=== PATIENT | female | born 1955 | race African-American/Black ===

== ENCOUNTER 2017-08-05 11:13 | Emergency (ER) | payer MEDICARE, MEDICAID ==
[2017-08-05 11:56] LABS: #Lymphocytes 1.6 thou/uL (1.20-3.40); #Monocytes 0.4 thou/uL (0.11-0.59); #Neutrophils 2.4 thou/uL (1.40-6.50); %Basophils 0.4 % (0.0-1.0); %Eosinophils 0.5 % (0.0-10.0); %Lymphocytes 36.4 % (21.0-51.0); %Monocytes 9.8 % (0.0-10.0); %Neutrophils 52.9 % (42.0-75.0); Hemoglobin 14.1 g/dL (12.0-16.0); Mean Corpuscular HGB CONC 32.6 g/dL (32.0-36.0); Mean Corpuscular Hemoglobin 30.2 pg (27.0-31.0); Mean Corpuscular Volume 92.7 fl (81.0-99.0); Mean Platelet Volume 7.6 fL (7.4-10.4); Platelet Count 183 thou/uL (130-400); RBC Distribution Width 13.1 % (11.5-14.5); Red Blood Cell (RBC) Count 4.66 mill/uL (4.20-5.40); White Blood Cell (WBC) Count 4.5 thou/uL (4.8-10.8)
[2017-08-05 12:20] LABS: ALT (SGPT) 64 U/L (8-55); AST (SGOT) 76 U/L (5-34); Albumin 3.8 g/dL (3.4-4.8); Alkaline Phosphatase 143 U/L (40-150); Anion Gap 13 mmol/L (10-20); BUN (Urea Nitrogen) 17 mg/dL (9.8-20.1); Bilirubin, Total 0.4 mg/dL (0.2-1.2); Calc. Creatinine Clearance 0 mL/min (70-130); Calcium 9.7 mg/dL (7.8-10.44); Carbon Dioxide 23 mmol/L (23-31); Chloride 104 mmol/L (98-107); Estimated GFR-MDRD 68; Globulin 4.2 g/dL (2.4-3.5); Glucose 282 mg/dL (80-115); Potassium 4.2 mmol/L (3.5-5.1); Sodium 136 mmol/L (136-145)
[2017-08-05 12:25] LABS: CKMB 0.8 ng/mL (0-6.6)
[2017-08-05 12:41] LABS: Bilirubin Negative (Negative); Blood, Urine Negative (Negative); Clarity CLOUDY (Clear); Glucose, Urine (Dipstick) Negative (Negative); Leukocyte Negative (Negative); Nitrite Negative (Negative); Protein, Urine (Dipstick) 100 mg/dL (Neg-Trace); Specific Gravity, Urine 1.027 (1.002-1.036); pH, Urine 5.5 (5.0-9.0)
[2017-08-05 12:44] LABS: Bacteria/HPF 2+ HPF (None Seen); Pathc Cast-AUWi Flag 2.16 (0-2.49)
[2017-08-05 12:52] LABS: Hyaline Casts/LPF 4-6 HYALINE CAST LPF (0-3 Hyaline)
--- NOTE | 2017-08-05 13:19 | RAD ---
AP CHEST: Indication: Cough, body aches. FINDINGS: Bibasilar atelectasis and stable cardiomegaly when compared to a prior dated 10-17-16. No airspace con solidation, pleural effusion, or pneumothorax is evident. No acute osseous abnormality is evident. IMPRESSION: Stable cardiomegaly. Bibasilar atelectasis. POS: [facility]
--- NOTE | 2017-08-06 12:19 | EKG ---
Test Reason : Blood Pressure : / mmHG Vent. Rate : 078 BPM Atrial Rate : 078 BPM P-R Int : 130 ms QRS Dur : 082 ms QT Int : 364 ms P-R-T Axes : 006 -04 046 degrees QTc Int : 414 ms Normal sinus rhythm Moderate voltage criteria for LVH, may be normal variant Borderline ECG Confirmed by TEJA BECERRA ([id number]), graphic editor NIC CORCORAN ([id number]) on 08/06/2017 12:18:55 PM Referred By: Confirmed By:TEJA BECERRA
== END 2017-08-05 13:13 | disposition home or self-care (01) ==
LOC: ERS 11:13
DX: B34.9 Viral infection, unspecified (principal); I25.10 Atherosclerotic heart disease of native coronary artery without angina pectoris; I11.0 Hypertensive heart disease with heart failure; I50.9 Heart failure, unspecified; E11.9 Type 2 diabetes mellitus without complications; E78.5 Hyperlipidemia, unspecified; F32.9 Major depressive disorder, single episode, unspecified; Z79.899 Other long term (current) drug therapy; Z86.73 Personal history of transient ischemic attack (TIA), and cerebral infarction without residual deficits; Z79.4 Long term (current) use of insulin; Z79.82 Long term (current) use of aspirin
CPT/HCPCS: 36415; 71010; 80053; 81003; 81015; 82553; 83605; 84484; 85025; 93005

== ENCOUNTER 2017-08-11 06:52 | Outpatient (CLI) | payer MEDICARE, MEDICAID | END 2017-08-11 06:53 | disposition home or self-care (01) | LOC: BICULT 06:52 | PROVIDERS: ATTEND Internal Medicine Gastroenterology | DX: R10.9 Unspecified abdominal pain (principal); Z90.49 Acquired absence of other specified parts of digestive tract | CPT/HCPCS: 76700 ==

== ENCOUNTER 2017-09-03 12:21 | Observation (INO) | payer MEDICARE, MEDICAID ==
--- NOTE | 2017-09-03 13:34 | RAD ---
CHEST 1 VIEW: Date: 09/03/17 HISTORY: Altered mental status, hypoxia. COMPARISON: Chest 1 view dated 08/05/17. FINDINGS: Lungs are clear. No pneumothorax or effusion. Cardiac silhouette and mediastinal contour within em l limits. Right upper quadrant surgical clips. IMPRESSION: No acute intrathoracic abnormality. POS: [facility]
--- NOTE | 2017-09-03 13:38 | CT ---
CT OF THE HEAD WITHOUT CONTRAST: INDICATION: History of altered mental status. COMPARISON: Prior CT of the brain dated 04/05/16. FINDINGS: Moderate chronic small-vessel white matter ischemic change is stable. The remote lacunar infarcts in volving the right caudate head and both globus pallidi appear stable. The remote lacunar infarct inv olving the anterior right thalamus is stable. There are scattered vascular calcifications involving the intracranial vessels. Septum pellucidum and third ventricle are midline. No definite acute infa rct, hemorrhage, or hydrocephalus is present. The mastoid air cells are clear. Paranasal sinuses ar e clear. The skull is intact. IMPRESSION: Stable chronic ischemic change. No definite acute intracranial abnormality demonstrated. POS: [facility]
[2017-09-03 13:45] LABS: #Basophils 0.1 thou/uL (0.0-0.2); #Lymphocytes 1.7 thou/uL (1.20-3.40); #Monocytes 0.5 thou/uL (0.11-0.59); #Neutrophils 1.8 thou/uL (1.40-6.50); %Basophils 1.7 % (0.0-1.0); %Eosinophils 0.6 % (0.0-10.0); %Lymphocytes 41.8 % (21.0-51.0); %Monocytes 11.8 % (0.0-10.0); %Neutrophils 44.1 % (42.0-75.0); ALT (SGPT) 35 U/L (8-55); AST (SGOT) 39 U/L (5-34); Albumin 3.7 g/dL (3.4-4.8); Alkaline Phosphatase 132 U/L (40-150); Anion Gap 14 mmol/L (10-20); BUN (Urea Nitrogen) 22 mg/dL (9.8-20.1); Bilirubin, Total 0.3 mg/dL (0.2-1.2); CK (CPK) 163 U/L (29-168); Calc. Creatinine Clearance 0 mL/min (70-130); Calcium 9.7 mg/dL (7.8-10.44); Carbon Dioxide 20 mmol/L (23-31); Chloride 101 mmol/L (98-107); Estimated GFR-MDRD 51; Globulin 4.2 g/dL (2.4-3.5); Glucose 348 mg/dL (80-115); Hemoglobin 11.5 g/dL (12.0-16.0); Mean Corpuscular HGB CONC 33.3 g/dL (32.0-36.0); Mean Corpuscular Hemoglobin 30.5 pg (27.0-31.0); Mean Corpuscular Volume 91.6 fl (81.0-99.0); Mean Platelet Volume 8.4 fL (7.4-10.4); PLT Morphology Comment Appears Adequate; Platelet Count 135 thou/uL (130-400); Polychromasia SLIGHT = 2-3 cells (100X) (0-2/hpf); Potassium 4.7 mmol/L (3.5-5.1); Protein, Total 7.9 g/dL (6.0-8.3); RBC Distribution Width 13.2 % (11.5-14.5); Red Blood Cell (RBC) Count 3.78 mill/uL (4.20-5.40); Sodium 130 mmol/L (136-145); White Blood Cell (WBC) Count 4.3 thou/uL (4.8-10.8)
[2017-09-03 13:48] LABS: CKMB 1.5 ng/mL (0-6.6); Troponin I 0.014 ng/mL (< 0.028)
[2017-09-03 13:50] LABS: Bilirubin Negative (Negative); Blood, Urine Negative (Negative); Clarity CLOUDY (Clear); Glucose, Urine (Dipstick) 250 mg/dL (Negative); Leukocyte Negative (Negative); Nitrite Negative (Negative); Protein, Urine (Dipstick) 30 mg/dL (Neg-Trace); Specific Gravity, Urine 1.023 (1.002-1.036); Urobilinogen 0.2 mg/dL (0.2-1.0); pH, Urine 5.5 (5.0-9.0)
[2017-09-03 13:52] LABS: Bacteria/HPF None Seen HPF (None Seen); Hyaline Casts/LPF 4-6 HYALINE CAST LPF (0-3 Hyaline); Pathc Cast-AUWi Flag 0.54 (0-2.49); RBC/HPF 0-3 HPF (0-3); WBC/HPF 0-3 HPF (0-3)
[2017-09-03] MEDS ORDERED: ISOVUE-370 76%-LOCM 1 ML ONE (14:16)
[2017-09-03] MEDS ORDERED: Iopamidol 370 76% 50 ML VIAL FS ONE (14:16)
[2017-09-03] MEDS ORDERED: Ketorolac Tromethamine 30 MG/ML VIAL ONE (15:24)
[2017-09-03] MEDS ORDERED: Ondansetron ODT 4 MG TAB PO PRN (18:10)
[2017-09-03] MEDS ORDERED: Dextrose 5% in Water 1,000 ML IV PRN (18:10)
[2017-09-03] MEDS ORDERED: Dextrose 50% Abboject 50 ML SYRINGE SLOW IVP PRN (18:10)
[2017-09-03] MEDS: Sodium Chloride 0.9% 1,000 ML IV SCH (18:27)
--- NOTE | 2017-09-03 18:27 | HP-2 ---
CODE STATUS: FULL. PRIMARY CARE PHYSICIAN: Dr. Rivas, [facility]. ATTENDING: Tavia Adorno M.D. RESIDENT: Delmar Gallardo MD CHIEF COMPLAINT: Syncope and weakness. HISTORY OF PRESENT ILLNESS: This is a 62-year-old female who presents with a 1-week history of feeli ng weak and feeling bad. She states this morning she felt even worse. She got up to use the restroo m, felt the urge to use the restroom and then yelled for her son because she felt weak. When her son came into the bathroom, she was fecally incontinent and on the floor. She states she briefly lost c onsciousness but did not hurt herself. Again, this patient knew that she needed to go the bathroom b ut just did not make it in time. She states she had chest pains for roughly 2 days prior to this, bu t nothing severe enough to come into the hospital. She denies any nausea, vomiting, diarrhea, fevers , chills, or any other longstanding incontinence. She does have a history of longstanding abdominal pain that she states is on her hip, but then she describes it in her waistline at this time as well. She has no other complaints at this time. In the ER, she was given a normal saline bolus of 1 liter . She got 50 mg shot of Toradol. PAST MEDICAL HISTORY: Significant for diabetes mellitus type 2, hyperlipidemia, hypertension, CVA in 1999, hepatitis C, CHF, and depression. PAST SURGICAL HISTORY: Left and right knee replacements, cholecystectomy, hysterectomy, tonsillectom y, and a back surgery. ALLERGIES: Include VICTOZA and ACTOS. MEDICATIONS: Include, 1. Gabapentin 600 mg t.i.d. 2. Lansoprazole 30 mg daily. 3. Atorvastatin 80 mg at bedtime. 4. Insulin ultrafine needles. 5. Bupropion 200 mg orally once a daily. 6. Nitrostat 0.4 mg sublingual. 7. Colace 100 mg take 1 by mouth twice daily as needed. 8. Lisinopril 20 mg b.i.d. 9. Aspirin 81 mg. 10. Glimepiride 1 mg. 11. Carvedilol 25 mg p.o. daily. 12. Oxybutynin ER 10 mg daily. 13. Spironolactone/HCTZ 25/25 mg daily. 14. [place] 10/325 mg q.4 hour p.r.n. 15. Metoclopramide 10 mg, take 30 minutes prior to 2 largest meals. 16. Naproxen 500mg. 17. Bentyl 20 mg q.i.d. 18. NovoLog 6 units before meals. FAMILY HISTORY: Significant for heart disease. SOCIAL HISTORY: Denies tobacco use. She does say she socially drinks alcohol at times and she denie s drug use. REVIEW OF SYSTEMS: GENERAL: No fevers, no chills, no weight losses, no night sweats, no fatigue. EYES: No vision changes or eye pain. ENT: Denies any nasal congestion, rhinorrhea, or sore throat. RESPIRATORY: Denies coughing, congestion, or shortness of breath. CARDIOVASCULAR: She does admit to chest pains. Denies palpitations, edema, or orthopnea. GASTROINTESTINAL: Denies nausea, vomiting, diarrhea or constipation. She does admit to abdominal pa in. Denies GI bleeding. GENITOURINARY: Has an episode of incontinence. Denies dysuria, polyuria, or discharge. SKIN: She does admit to rashes especially around her waist. Denies any skin lesions, jaundice, or i tching. MUSCULOSKELETAL: Denies pain, tenderness, stiffness, swelling, arthritis at any joints. NEUROLOGIC: Admits to weakness and syncope. Denies any numbness or seizures. PSYCHIATRIC: Denies anxiety or depression. PHYSICAL EXAMINATION: VITAL SIGNS: Blood pressure was 183/65, pulse was 86, respiration is 19, temperature max 97.8, pulse ox 96% on room air, current weight is 95 kilos. GENERAL: She is alert and oriented x4, appropriate, interactive. EYES: PERRLA. Conjunctivae within normal limits. ENT: Tympanic membranes pearly gonzalez without bulging or erythema. Nasal mucosa and oropharynx within normal limits. NECK: Supple, no lymphadenopathy, no thyromegaly. CARDIAC: Regular rate and rhythm. No murmurs. Radial and pedal pulses equal bilaterally. RESPIRATORY: Normal effort. She did have some diminished lung sounds at the bases bilaterally. SKIN: Warm and dry. No cyanosis. No lesions. ABDOMEN: Soft and was tender to palpation along her waist. No mass or distention. Bowel sounds pre sent x4. EXTREMITIES: No clubbing, cyanosis or edema. MUSCULOSKELETAL: Structure, tone, and range of motion within normal limits. Muscle strength 3/5 maximus aterally. I am unsure of the effort given by the patient during this exam. NEUROLOGIC: No focal neurologic deficits. Sensation within normal limits. Cranial nerves II-XII ju st grossly intact. GCS was 15. PSYCHIATRY: Appropriate. LABORATORY DATA: White blood cell count 4.3, platelet count 135, hemoglobin 11.5, hematocrit 34.6, M CV 91.6%, neutrophils 44.1. CK 163, CK-MB 1.5, troponin I 0.014. Sodium 130, potassium 4.7, chlorid e 101, bicarbonate 20, BUN 22, creatinine 1.27, glucose 348, calcium 9.7, total protein 7.9, albumin 3.7, total bilirubin 0.3, AST was 39, ALT 35, alkaline phosphatase 132. Lactate was 1.4. CRP was 0. 6. BNP was 41.3. Her urinalysis showed a specific gravity of 1.23, negative for blood. She had 30 for protein, negative for leukocyte esterase, negative for nitrites, negative for ketones and 250 for glucose, 0-3 red blood cells, 0-3 white blood cells, no bacteria were seen. Chest x-ray showed noth ing acute. She had CT of her head that showed stable chronic ischemic change. An EKG showed normal sinus rhythm. There is also a CT abdomen and pelvis that will be pending at the time of this dictati on. ASSESSMENT AND PLAN: 1. A 62-year-old female with syncope and orthostatics. Repeat echo and carotid Dopplers pending. W e are going to put her tele admit and give her IV fluids. She also has blood and urine cultures pend ing at this time. 2. Acute kidney injury. We will give her IV fluids. We will track that going forward. 3. Hyperglycemia and diabetes mellitus type 2. We will give her Accu-Cheks. We are going to check an A1c and give her insulin as well as continue her home meds. 4. Hyponatremia, it is likely from hypovolemia. We will trend that and we will do appropriate inter ventions as needed. 5. Hyperlipidemia. We will continue statin. 6. Hypertension. We will continue her home meds. 7. Depression. We will continue her home meds. Disposition and length of hospital stay will be tele observation and 1. Symptomatic medications will be provided. History and physical exam as well as management has been discussed with Dr. Tavia galvan
--- NOTE | 2017-09-03 18:31 | CT ---
CT ABDOMEN AND PELVIS WITH CONTRAST 09/03/17 HISTORY: Abdominal pain. COMPARISON: CT abdomen and pelvis 04/02/17. FINDINGS: Lung bases are clear. No pericardial effusion. Prior cholecystectomy. There is a small fat containing ventral hernia which is supraumbilical with some low grade inflammation and prominent draining vesse l. There is moderate diverticular disease sigmoid colon. No definite evidence of active inflammatory dis ease. Dilated loops of large and small bowel. There is mild to moderate submucosal edema of the transverse colon. Mild thickening of the terminal ileum. The appendix is visualized and is normal. No hydroureteronephrosis. Aortoiliac contour is normal. There is ossification between the transverse processes of L3-S1. Right sided SI joint fusion. No acut e osseous abnormality. Appears to be suture material at the rectum. IMPRESSION: Chronic type findings in the abdomen and pelvis. No definite acute process. No significant change fro 04/02/17 aside from mild thickening of the transverse colon which may reflect low grade colitis. POS: [facility]
[2017-09-03 18:45] VITALS: BMI 36.2
[2017-09-03 18:57] LABS: Hemoglobin A1c 12.9 % (4.0-6.0)
[2017-09-03] MEDS: Acetaminophen 325 MG TAB PO PRN (20:11)
[2017-09-03] MEDS: HumaLOG 300 UNITS/3 ML VIAL SC PRN (22:33)
--- NOTE | 2017-09-04 00:08 | HP ---
DATE OF SERVICE: 09/03/2017 CHIEF COMPLAINT: Syncope and weakness. HISTORY OF PRESENT ILLNESS: The patient is a 62-year-old -[place] female with a past medical history of poorly controlled type 2 diabetes, hyperlipidemia, hypertension and CHF, depression, and hepatitis C, who presented to the ER with a 1-week history of weakness and feeling bad. She got up t o use the restroom this morning and began to feel weak and called out for a family member. When the family member got to the restroom, she had passed out and had been incontinent. She also noted some chest pains few days prior to coming to the ER, but denies chest pain currently. She also endorses s ome lower abdominal pain that she noted was more along her right groin and had a rash, skin folds to her right groin. In the ER, she was found to be dehydrated and with an acute kidney injury. She has received 1 liter bolus of normal saline and also got Toradol. LABORATORY DATA: Pertinent labs include white count of 4.3, hemoglobin of 11.5, hematocrit 34.6, princess telet count 135. Her CMP showed sodium of 130, potassium 4.7, chloride 101, bicarbonate 20, BUN 22, creatinine 1.27, glucose 348, total bilirubin 0.3, AST 39, ALT 35, alkaline phosphatase 132, total pr otein 7.9, albumin 3.7. The patient's hemoglobin A1c is 12.9, and lactic acid was 1.4. Her CRP is 0 .6. Her cardiac enzymes were negative. Urinalysis was significant for protein of 30, glucose 250, s quamous cells 7-10 and hyaline casts 4-6. IMAGING DATA: The patient had a CT of her brain, which showed stable chronic ischemic changes and a chest x-ray that showed no acute abnormalities. The patient is being admitted for syncope. We will monitor orthostatics and we will check an echo and carotid Dopplers. She is to remain on telemetry m onitoring and she will continue to receive IV fluids. She has cultures pending at this time. ASSESSMENT AND PLAN: Acute kidney injury. She is getting IV fluids and we will trend her creatinine. Regarding her uncon trolled diabetes, she will have sliding scale insulin and continued counseling for diabetic diet. Th e patient has had a CT abdomen and pelvis to better examine her abdominal pain, but those results are pending at this time. I have discussed the history, physical, assessment and the plan in detail wit zelda Gallardo and agree with his documentation. I repeated portions of the history and physical by m justinelf.
[2017-09-04] MEDS ORDERED: Metoclopramide HCl 10 MG TAB PO PRN (00:37)
[2017-09-04] MEDS: Sodium Chloride 0.9% 1,000 ML IV SCH ×4 (01:54→23:46)
[2017-09-04 05:51] LABS: Anion Gap 9 mmol/L (10-20); BUN (Urea Nitrogen) 23 mg/dL (9.8-20.1); Calc. Creatinine Clearance 87 mL/min (70-130); Calcium 8.9 mg/dL (7.8-10.44); Carbon Dioxide 25 mmol/L (23-31); Chloride 105 mmol/L (98-107); Estimated GFR-MDRD 65; Glucose 326 mg/dL (80-115); Potassium 4.4 mmol/L (3.5-5.1); Sodium 135 mmol/L (136-145)
[2017-09-04] MEDS: HumaLOG 300 UNITS/3 ML VIAL SC PRN (06:11)
[2017-09-04] MEDS: Acetaminophen 325 MG TAB PO PRN ×3 (06:13→23:32)
--- NOTE | 2017-09-04 06:20 | PDOC.FM ---
- Subjective Subjective: Patient states she had a good night. She states that she has not had any further fainting episodes, but hasn't gotten up out of bed often. She states she does still feel weak all over. Her biggest complaint this morning is her waist line pain. She has an appointment for [facility] in the near future and I encouraged her to keep that appointment. She denies chest pain, sob, n/v/d, fevers, or chills. No other concerns this morning. - Objective Vital Signs & Weight: Vital Signs (12 hours) Temp Pulse Resp BP Pulse Ox 09/04/17 01:56 98.0 F 77 16 141/80 H 97 09/03/17 23:01 98.3 F 88 18 134/96 H 94 L 09/03/17 20:13 98.5 F 83 20 Weight Weight 99.972 kg Result Diagrams: 09/04/17 04:37 09/04/17 04:37 <Delmar Gallardo - Last Filed: 09/04/17 07:36> - Objective Vital Signs & Weight: Vital Signs (12 hours) Temp Pulse Resp BP BP BP Pulse Ox 09/04/17 11:23 97.8 F 72 24 H 145/77 H 97 09/04/17 08:09 97.3 F L 83 16 185/98 H 190/100 H 174/87 H 95 09/04/17 08:00 97.3 F L 83 16 09/04/17 01:56 98.0 F 77 16 141/80 H 97 Weight Weight 99.972 kg I&O: 09/03/17 09/04/17 09/05/17 06:59 06:59 06:59 Intake Total 2421 Balance 2421 Result Diagrams: 09/04/17 04:37 09/04/17 04:37 <Terrie Brown - Last Filed: 09/04/17 13:47> Phys Exam - Physical Examination HEENT: PERRLA Neck: no nodes Respiratory: no wheezing, clear to auscultation bilateral Cardiovascular: RRR, no significant murmur Gastrointestinal: soft, no distention, positive bowel sounds tenderness to suprapubic region along waist Musculoskeletal: no edema, pulses present Neurological: non-focal, normal sensation, moves all 4 limbs Lymphatic: no nodes Psychiatric: normal affect, A&O x 3 Skin: no rash <Delmar Gallardo - Last Filed: 09/04/17 07:36> Dx/Plan (1) Syncope Code(s): R55 - SYNCOPE AND COLLAPSE Status: Acute (2) BURAK (acute kidney injury) Code(s): N17.9 - ACUTE KIDNEY FAILURE, UNSPECIFIED Status: Acute (3) Hyperglycemia due to type 2 diabetes mellitus Code(s): E11.65 - TYPE 2 DIABETES MELLITUS WITH HYPERGLYCEMIA Status: Acute (4) Hyponatremia Code(s): E87.1 - HYPO-OSMOLALITY AND HYPONATREMIA Status: Acute (5) Depression Code(s): F32.9 - MAJOR DEPRESSIVE DISORDER, SINGLE EPISODE, UNSPECIFIED Status : Chronic (6) Hypertension Code(s): I10 - ESSENTIAL (PRIMARY) HYPERTENSION Status: Chronic (7) Abdominal pain Code(s): R10.9 - UNSPECIFIED ABDOMINAL PAIN Status: Acute - Plan Plan: 1. Syncope - No further episodes - BP responded well - ECHO pending - Carotid dopplers pending 2. BURAK - Improved today Cr 1.03 - Continue IVF 3. Hyperglycemia in DM2 - not well controlled - Will increase insulin usage 4. Hyponatremia - improved this am to 135 - likely hypovolemic 5. Depression - Continue home meds 6. HTN - Continue home meds 7. Abdominal pain - CT scan showed no acute findings, possibly some colitis of transverse colon - No rebound or guarding - Recommend keeping [facility] appointment for outpatient follow up. Disposition: Stable, will await echo results. <Delmar Gallardo - Last Filed: 09/04/17 07:36> Attending Addendum - Attending Addendum I personally evaluated the patient and discussed the management with Dr. Gallardo. I agree with the History, Examination, Assessment and Plan documented above with any addition or exceptions noted below. The patient is feeling much better today. Carotid doppler and echo are pending. She will f/u as an outpt with [facility] to further workup groin/ abdominal pain. Abdominal exam is soft, nontender, nondistended with bowel sounds. <Terrie Brown - Last Filed: 09/04/17 13:47>
[2017-09-04 06:35] LABS: Band 1 % (5-11); Hemoglobin 12.1 g/dL (12.0-16.0); Lymphocytes 53 % (21-51); MDiff Complete? YES; Mean Corpuscular HGB CONC 32.3 g/dL (32.0-36.0); Mean Platelet Volume 7.5 fL (7.4-10.4); Monocytes 7 % (0-10); Neutrophil 39 % (42-75); PLT Morphology Comment Appears Adequate; Platelet Count 181 thou/uL (130-400); RBC Distribution Width 13.3 % (11.5-14.5); RBC Morphology Normal; Red Blood Cell (RBC) Count 4.01 mill/uL (4.20-5.40); White Blood Cell (WBC) Count 3.1 thou/uL (4.8-10.8)
[2017-09-04] MEDS: HumaLOG 300 UNITS/3 ML VIAL SC SCH ×3 (08:40→18:10)
[2017-09-04] MEDS: Enoxaparin Sodium 40 MG/0.4 ML SYRINGE SC SCH (08:41)
[2017-09-04] MEDS: Oxybutynin ER 5 MG TAB PO SCH (08:42)
[2017-09-04] MEDS: Gabapentin 300 MG CAP PO SCH ×3 (08:42→20:14)
--- NOTE | 2017-09-04 08:42 | ULT ---
ULTRASOUND CAROTID DOPPLER STANDARD: Date: 09/04/17 HISTORY: Syncope. COMPARISON: Exam from 2013. FINDINGS: Moderate atherosclerotic plaque proximal internal carotid arteries bilaterally. Antegrade flow to bot h vertebral arteries. No elevated peak systolic velocities within the internal carotid arteries. IMPRESSION: No hemodynamically significant stenosis. POS: [facility]
[2017-09-04] MEDS: Lisinopril 20 MG TAB PO SCH ×2 (08:43→20:13)
[2017-09-04] MEDS: Aspirin 81 mg Enteric Coated Tablet PO SCH (08:43)
[2017-09-04] MEDS: Bupropion 100 MG SR TAB PO SCH (08:43)
[2017-09-04] MEDS: Glimepiride 4 MG TAB PO SCH (08:43)
[2017-09-04] MEDS: Docusate 100 MG CAP PO SCH ×2 (08:43→20:13)
[2017-09-04] MEDS: Dicyclomine 20 MG TAB PO SCH ×4 (08:44→20:13)
[2017-09-04] MEDS: Carvedilol 25 MG TAB PO SCH ×2 (08:44→20:13)
[2017-09-04] MEDS: Spironolactone/Hctz 25 MG/25 MG TABLET PO SCH (08:45)
[2017-09-04] MEDS ORDERED: FLU VACC QS2017-18 36 mo. & older 0.5 ML SYRINGE IM ONE (09:00)
[2017-09-04] MEDS ORDERED: Insulin Degludec [Tresiba Flextouch U-100] SC SCH (09:00)
[2017-09-04] MEDS ORDERED: Insulin Detemir 100 UNITS/ML 10 UNITS in Pre-Filled Syringe 1 EACH SC SCH ×2 (09:30→21:00)
[2017-09-04] MEDS: Insulin Detemir 100 UNITS/ML 55 UNITS in Pre-Filled Syringe 1 EACH SC SCH (20:12)
[2017-09-04] MEDS ORDERED: Atorvastatin Calcium 40 MG TAB PO SCH (21:00)
[2017-09-04] MEDS: hydrALAZINE 20 MG/ML VIAL SLOW IVP PRN (23:39)
--- NOTE | 2017-09-05 06:22 | PDOC.FM ---
- Subjective Subjective: Patient states she feels tired. She states that she gets sharp, shock like chest pains that occur for like 10 seconds. The last pains she had were last night and they resolved on her own. She states the biggest pain she has is in her waist line and in her vagina. She denies n/v/d, fevers, chills, or cough. She has no other complaints this morning. - Objective Vital Signs & Weight: Vital Signs (12 hours) Temp Pulse Resp BP BP Pulse Ox 09/05/17 03:48 98.9 F 89 16 188/95 H 96 09/04/17 23:39 73 18 185/94 H 98 09/04/17 23:32 98.3 F 71 16 09/04/17 20:13 185/89 H 09/04/17 19:10 98.3 F 71 16 185/89 H 96 Weight Weight 101.786 kg I&O: 09/03/17 09/04/17 09/05/17 06:59 06:59 06:59 Intake Total 2421 1300 Balance 2421 1300 Result Diagrams: 09/04/17 04:37 09/04/17 04:37 <Delmar Gallardo - Last Filed: 09/05/17 07:25> - Objective Vital Signs & Weight: Vital Signs (12 hours) Temp Pulse Resp BP Pulse Ox 09/05/17 12:00 97.6 F 88 18 140/98 H 95 09/05/17 08:00 98.3 F 88 18 09/05/17 07:59 98.3 F 88 18 165/93 H 95 09/05/17 06:29 89 09/05/17 03:48 98.9 F 89 16 188/95 H 96 Weight Weight 101.786 kg I&O: 09/04/17 09/05/17 09/06/17 06:59 06:59 06:59 Intake Total 2421 1300 Balance 2421 1300 Result Diagrams: 09/04/17 04:37 09/04/17 04:37 <Terrie Brown - Last Filed: 09/05/17 13:51> Phys Exam - Physical Examination Constitutional: NAD HEENT: PERRLA halitosis Neck: no nodes Respiratory: no wheezing, clear to auscultation bilateral Cardiovascular: RRR, no significant murmur Gastrointestinal: soft, non-tender, no distention, positive bowel sounds Musculoskeletal: no edema, pulses present Neurological: non-focal, normal sensation, moves all 4 limbs Lymphatic: no nodes Psychiatric: normal affect, A&O x 3 Skin: no rash <Delmar Gallardo - Last Filed: 09/05/17 07:25> Dx/Plan (1) Syncope Code(s): R55 - SYNCOPE AND COLLAPSE Status: Acute (2) BURAK (acute kidney injury) Code(s): N17.9 - ACUTE KIDNEY FAILURE, UNSPECIFIED Status: Acute (3) Hyperglycemia due to type 2 diabetes mellitus Code(s): E11.65 - TYPE 2 DIABETES MELLITUS WITH HYPERGLYCEMIA Status: Acute (4) Hyponatremia Code(s): E87.1 - HYPO-OSMOLALITY AND HYPONATREMIA Status: Acute (5) Depression Code(s): F32.9 - MAJOR DEPRESSIVE DISORDER, SINGLE EPISODE, UNSPECIFIED Status : Chronic (6) Hypertension Code(s): I10 - ESSENTIAL (PRIMARY) HYPERTENSION Status: Chronic (7) Abdominal pain Code(s): R10.9 - UNSPECIFIED ABDOMINAL PAIN Status: Acute - Plan Plan: 1. Syncope - No further episodes - BP responded well - ECHO: EF 50-55% mild LVH, mild mitral annular calcification, mild mitral regurgitation - Carotid dopplers: no significant stenosis - ruled out cardiac cause 2. BURAK - Resolved - Continue IVF 3. Hyperglycemia in DM2 - not well controlled - Will increase insulin usage - Glucose in 200s now 4. Hyponatremia - resolved - likely hypovolemic 5. Depression - Continue home meds 6. HTN - Continue home meds - Uncontrolled - PRN hydralazine - Will need to decrease BP before discharge. 7. Abdominal pain - CT scan showed no acute findings, possibly some colitis of transverse colon - No rebound or guarding - Recommend keeping [facility] appointment for outpatient follow up. Disposition: Stable, Patient will be ready for discharge today. <Delmar Gallardo - Last Filed: 09/05/17 07:25> Attending Addendum - Attending Addendum I personally evaluated the patient and discussed the management with Dr. Gallardo. I agree with the History, Examination, Assessment and Plan documented above with any addition or exceptions noted below. The patient is feeling better. No syncope since admission. Echo has been taken. pt is stable to d/c home with follow-up with PCP. Advised to also keep [facility] appt. <Terrie Brown - Last Filed: 09/05/17 13:51>
[2017-09-05] MEDS: hydrALAZINE 20 MG/ML VIAL SLOW IVP PRN (06:29)
[2017-09-05] MEDS: Acetaminophen 325 MG TAB PO PRN (06:29)
[2017-09-05] MEDS: Enoxaparin Sodium 40 MG/0.4 ML SYRINGE SC SCH (09:32)
[2017-09-05] MEDS: HumaLOG 300 UNITS/3 ML VIAL SC SCH ×2 (09:32→13:03)
[2017-09-05] MEDS: Dicyclomine 20 MG TAB PO SCH ×2 (09:33→13:03)
[2017-09-05] MEDS: Lisinopril 20 MG TAB PO SCH (09:33)
[2017-09-05] MEDS: Oxybutynin ER 5 MG TAB PO SCH (09:33)
[2017-09-05] MEDS: Gabapentin 300 MG CAP PO SCH (09:33)
[2017-09-05] MEDS: Aspirin 81 mg Enteric Coated Tablet PO SCH (09:34)
[2017-09-05] MEDS: Carvedilol 25 MG TAB PO SCH (09:34)
[2017-09-05] MEDS: Bupropion 100 MG SR TAB PO SCH (09:34)
[2017-09-05] MEDS: Docusate 100 MG CAP PO SCH (09:34)
[2017-09-05] MEDS: Glimepiride 4 MG TAB PO SCH (09:34)
[2017-09-05] MEDS: Spironolactone/Hctz 25 MG/25 MG TABLET PO SCH (09:43)
[2017-09-05] MEDS: Insulin Detemir 100 UNITS/ML 55 UNITS in Pre-Filled Syringe 1 EACH SC SCH (10:02)
[2017-09-05 12:04] VITALS: BP 140/98; TEMP 97.6
--- NOTE | 2017-09-06 14:11 | DIS-2 ---
DATE OF ADMISSION: 09/03/2017 DATE OF DISCHARGE: 09/05/2017 RESIDENT: Dr. Delmar Gallardo ADMITTING ATTENDING: Dr. Malick Mane DISCHARGE ATTENDING: Dr. Terrie Brown CONSULTATIONS: Walking program. PROCEDURES: The patient underwent a brain CT on 09/03/2017 that showed stable chronic ischemic changes, no definite acute intracranial abnormality demonstrated. Chest x-ray showed no acute intrathoracic abnormality. Abdomen and pelvis CT showed chronic type findings in the abdomen and pelvis, no definite acute process, no significant change from 04/02/2017, aside from mild thickening of the transverse colon which may reflect low-grade colitis. The patient underwent an echocardiogram on 09/03/2017 that showed ejection fraction is estimated at 50-55% with mild LVH, normal right ventricle size and function. Left atrium is of normal size, normal right atrium size, structurally normal mitral valve, but mild mitral annular calcification is present. Trace mitral regurgitation is present. Structurally normal aortic valve and trace tricuspid regurgitation. Patient also underwent a carotid Doppler study on 09/04/2017 that showed no hemodynamically significant stenosis. PRIMARY DIAGNOSES: 1. Syncope. 2. Acute kidney injury 3. Hyperglycemia due to diabetes mellitus type 2. 4. Hyponatremia. 5. Depression. 6. Hypertension. 7. Abdominal pain. DISCHARGE MEDICATIONS: 1. Atorvastatin 80 mg p.o. at bedtime. 2. Bupropion 200 mg p.o. daily. 3. Gabapentin 600 mg p.o. t.i.d. 4. Lansoprazole 30 mg p.o. daily. 5. Nitroglycerin 0.4 mg sublingual every 5 minutes. 6. Colace 100 mg p.o. b.i.d. 7. Carvedilol 25 mg p.o. daily. 8. Glimepiride 2 mg p.o. daily. 9. Lisinopril 20 mg p.o. b.i.d. 10. Aspirin 81 mg p.o. daily. 11. Aldactazide 25 mg/25 mg 1 tab p.o. daily. 12. Oxybutynin chloride 10 mg p.o. daily. 13. Reglan 10 mg p.o. b.i.d. 14. Metoprolol succinate 25 mg p.o. daily. 15. Traceba Flextouch 100, 110 units subcu daily. 16. NovoLog FlexPen 6 units subcu t.i.d. with meals. 17. Bentyl 20 mg p.o. q.i.d. 18. Acetaminophen 650 mg p.o. q.4 hour p.r.n. 19. Amlodipine 5 mg p.o. daily. HISTORY OF PRESENT ILLNESS AND HOSPITAL COURSE: This is a 62-year-old female who presents with 1 week history of feeling weak and feeling bad. She states this morning she felt even worse. She got up to use the restroom, felt the urge to use the restroom and then yelled for her son because she felt weak. When her son came into the bathroom she was focally incontinent and was on the floor. She states she briefly lost consciousness, but did not hurt herself. Again, this patient knew that she needed to go the bathroom, but did not make it in time. She states she had chest pains for roughly 2 days prior to this, but nothing severe enough to come into the hospital. She denies any nausea, vomiting, diarrhea, fever, chills or any other abdominal pain or any other longstanding incontinence. She does have a history of longstanding abdominal pain that she states is on her hip, but then she describes it in the waistline at this time as well. She has no other complaints at this time. In the ER, she was given a normal saline bolus of 1 liter. She got 50 mg shot of Toradol. During this hospitalization, the patient no longer had any syncopal episodes or any syncopal symptoms. The patient did have very hypertensive like blood pressures ranging from 188/95 down to 140/98 on the day of discharge. The patient also had some notable lab values of hemoglobin A1c of 12.9 with blood sugars ranging from 198 to as high as 329. The patient had a sodium on admission of 130 that improved to 135 the day before discharge. The patient also had a urinalysis that showed urine glucose of 250, urine protein of 30, urine squamous cells 7-10 with no bacteria seen. The patient otherwise was complaining of significant abdominal pain and so a CT scan was ordered and ruled out any acute intra-abdominal process. The patient's family also stated the patient was somewhat disoriented during that time; however, it improved with a normal saline bolus and she returned to her baseline mentation during this hospitalization. The patient otherwise underwent an echocardiogram that did not show a cardiac cause of the syncope and had no other problems from that standpoint. The patient obviously has poor control of her diabetes with hemoglobin A1c of 12.9 using her current regimen, so we recommend that she see her PCP for better control and titration of her insulin regimen to ensure she has better glycemic control. We have also started her on amlodipine for additional blood pressure control as she was maxed out on several other medications. The patient otherwise had no further complications during this hospitalization and was discharged in appropriate condition. DISCHARGE INSTRUCTIONS: 1. Location: She will be discharged home into her own care. 2. Activity: Activity will be with cardiopulmonary limits. 3. Diet: Diet will be a diabetic, heart healthy and low sodium diet going forward. 4. Followup: Her followup will be with her PCP, Dr. Rivas in 3 days to discuss further glycemic control and the recent hospitalization. We wish this patient best of luck and hope she has no further complications from this condition. [facility]
== END 2017-09-05 14:21 | disposition home or self-care (01) ==
LOC: ERS 12:21 → 2SW 16:27
PROVIDERS: ADMIT Family Medicine; ATTEND Family Medicine
DX: R55 Syncope and collapse (principal); N17.9 Acute kidney failure, unspecified; E11.65 Type 2 diabetes mellitus with hyperglycemia; E87.1 Hypo-osmolality and hyponatremia; F32.9 Major depressive disorder, single episode, unspecified; R10.9 Unspecified abdominal pain; E78.5 Hyperlipidemia, unspecified; I11.0 Hypertensive heart disease with heart failure; I50.9 Heart failure, unspecified; Z79.4 Long term (current) use of insulin; Z79.82 Long term (current) use of aspirin; Z79.899 Other long term (current) drug therapy; Z88.8 Allergy status to other drugs, medicaments and biological substances; Z96.653 Presence of artificial knee joint, bilateral; Z90.49 Acquired absence of other specified parts of digestive tract; Z90.89 Acquired absence of other organs; Z98.890 Other specified postprocedural states; Z86.73 Personal history of transient ischemic attack (TIA), and cerebral infarction without residual deficits; Z86.19 Personal history of other infectious and parasitic diseases
CPT/HCPCS: 51701; 70450; 71045; 74177; 80048; 80053; 82550; 82553; 82962 ×2; 83036; 83605; 83880; 84484; 85025 ×2; 86140; 87040; 87086; 93005; 93306; 93880; 96361 ×4; 96372 ×2; 96374; 96375; 96376; 97139 ×2; 99285; G0378; 36415; 36416; 81003; 81015; A4216; A4353; J0360; J1650; J1815; J1885

== ENCOUNTER 2017-12-14 07:40 | Emergency (ER) | payer MEDICARE, MEDICAID ==
[2017-12-14 08:23] LABS: Hemoglobin 13.1 g/dL (12.0-16.0); Mean Corpuscular Hemoglobin 30.5 pg (27.0-31.0); Mean Corpuscular Volume 92.6 fl (81.0-99.0); Mean Platelet Volume 7.2 fL (7.4-10.4); Platelet Count 244 thou/uL (130-400); RBC Distribution Width 12.8 % (11.5-14.5); White Blood Cell (WBC) Count 5.8 thou/uL (4.8-10.8)
[2017-12-14 08:39] LABS: ALT (SGPT) 25 U/L (8-55); AST (SGOT) 19 U/L (5-34); Albumin 3.8 g/dL (3.4-4.8); Alkaline Phosphatase 121 U/L (40-150); Anion Gap 14 mmol/L (10-20); BUN (Urea Nitrogen) 13 mg/dL (9.8-20.1); Bilirubin, Total 0.3 mg/dL (0.2-1.2); CK (CPK) 136 U/L (29-168); Calc. Creatinine Clearance 0 mL/min (70-130); Carbon Dioxide 25 mmol/L (23-31); Chloride 104 mmol/L (98-107); Estimated GFR-MDRD 85; Globulin 3.9 g/dL (2.4-3.5); Glucose 247 mg/dL (80-115); Lipase 12 U/L (8-78); Potassium 3.7 mmol/L (3.5-5.1); Protein, Total 7.7 g/dL (6.0-8.3); Sodium 139 mmol/L (136-145)
[2017-12-14 08:43] LABS: CKMB 1.7 ng/mL (0-6.6); Troponin I Less than 0.010 ng/mL (< 0.028)
[2017-12-14 08:45] LABS: Band 1 % (5-11); Lymphocytes 53 % (21-51); MDiff Complete? YES; Monocytes 5 % (0-10); Neutrophil 41 % (42-75); PLT Morphology Comment Appears Adequate
--- NOTE | 2017-12-14 08:57 | RAD ---
SINGLE VIEW OF THE CHEST: Comparison: 09-03-17 History: Chest pain. FINDINGS: Single view of the chest shows an enlarged cardiomediastinal silhouette. There is slight obscurity of the left costophrenic angle which may represent atelectasis or a left pleural effusion. IMPRESSION: 1. Cardiomegaly. 2. Left basilar atelectasis versus pleural effusion. POS: [facility]
[2017-12-14] MEDS ORDERED: Ketorolac Tromethamine 30 MG/ML VIAL ONE (09:13)
[2017-12-14] MEDS ORDERED: cloNIDine 0.1 MG TAB ONE ×2 (11:39→11:41)
[2017-12-14 12:10] LABS: Troponin I 0.017 ng/mL (< 0.028)
[2017-12-14] MEDS ORDERED: Acetaminophen 500 MG TAB ONE (13:24)
== END 2017-12-14 15:00 | disposition home or self-care (01) ==
LOC: ERS 07:40
DX: R07.89 Other chest pain (principal); I25.10 Atherosclerotic heart disease of native coronary artery without angina pectoris; I50.9 Heart failure, unspecified; E11.9 Type 2 diabetes mellitus without complications; E78.5 Hyperlipidemia, unspecified; I11.0 Hypertensive heart disease with heart failure; Z86.73 Personal history of transient ischemic attack (TIA), and cerebral infarction without residual deficits
CPT/HCPCS: 36415; 71045; 80053; 82553; 83690; 84484; 85025; 93005; 94760; 96374; J1885

== ENCOUNTER 2017-12-28 10:13 | Outpatient (CLI) | payer MEDICARE, MEDICAID | END 2017-12-28 10:14 | disposition home or self-care (01) | LOC: BICMRI 10:13 | PROVIDERS: ATTEND Internal Medicine Gastroenterology | DX: K76.0 Fatty (change of) liver, not elsewhere classified (principal); R10.9 Unspecified abdominal pain; R74.8 Abnormal levels of other serum enzymes; N28.1 Cyst of kidney, acquired; M47.896 Other spondylosis, lumbar region | CPT/HCPCS: 74183 ==

== ENCOUNTER 2018-02-18 15:42 | Observation (INO) | payer MEDICARE, MEDICAID ==
[~2018-02-18 15:42] MED LIST: ISOVUE-370 76%-LOCM 1 ML ONE
[2018-02-18 16:30] LABS: Hemoglobin 13.6 g/dL (12.0-16.0); Mean Corpuscular Hemoglobin 31.4 pg (27.0-31.0); Mean Corpuscular Volume 89.8 fL (78.0-98.0); Mean Platelet Volume 6.7 fL (7.4-10.4); Platelet Count 238 thou/uL (130-400); RBC Distribution Width 12.7 % (11.5-14.5); Red Blood Cell (RBC) Count 4.35 mill/uL (4.20-5.40); White Blood Cell (WBC) Count 5.2 thou/uL (4.8-10.8)
[2018-02-18 16:48] LABS: Eosinophils 4 % (0-10); Lymphocytes 51 % (21-51); MDiff Complete? YES; Monocytes 12 % (0-10); Neutrophil 29 % (42-75); PLT Morphology Comment Appears Adequate; RBC Morphology Normal; Reactive Lymphocytes 4 % (0-10)
[2018-02-18] MEDS ORDERED: Furosemide 40 MG/4 ML VIAL ONE (16:51)
[2018-02-18] MEDS ORDERED: Nitroglycerin 2% Ointment 1 INCH/1 GM Packet ONE (16:51)
--- NOTE | 2018-02-18 16:51 | RAD ---
FRONTAL VIEW CHEST: 02/18/18 COMPARISON: 12/14/17. INDICATION: Chest pain. FINDINGS: There is no evidence of consolidation, effusion or pneumothorax. The cardiac silhouette is prominent and there is mild prominence of the central pulmonary vasculature. The chest is otherwise similar to 12/14/17. IMPRESSION: CHF. POS: [facility]
[2018-02-18 16:53] LABS: ALT (SGPT) 28 U/L (8-55); AST (SGOT) 19 U/L (5-34); Albumin 3.9 g/dL (3.4-4.8); Alkaline Phosphatase 150 U/L (40-150); Anion Gap 14 mmol/L (10-20); BUN (Urea Nitrogen) 18 mg/dL (9.8-20.1); Bilirubin, Total 0.4 mg/dL (0.2-1.2); CK (CPK) 148 U/L (29-168); Calc. Creatinine Clearance 0 mL/min (70-130); Calcium 9.9 mg/dL (7.8-10.44); Carbon Dioxide 26 mmol/L (23-31); Chloride 104 mmol/L (98-107); Estimated GFR-MDRD 72; Glucose 230 mg/dL (80-115); Lipase 10 U/L (8-78); Potassium 3.9 mmol/L (3.5-5.1); Protein, Total 7.9 g/dL (6.0-8.3); Sodium 140 mmol/L (136-145)
[2018-02-18 16:55] LABS: CKMB 1.5 ng/mL (0-6.6); Troponin I Less than 0.010 ng/mL (< 0.028)
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
[2018-02-18 19:59] LABS: Troponin I Less than 0.010 ng/mL (< 0.028)
[2018-02-18] MEDS ORDERED: Calcium Carbonate 500 MG ChewTAB PO PRN (21:02)
[2018-02-18] MEDS ORDERED: Ondansetron ODT 4 MG TAB PO PRN (21:02)
[2018-02-18 22:34] LABS: Troponin I Less than 0.010 ng/mL (< 0.028)
--- NOTE | 2018-02-18 22:40 | CT ---
CT BRAIN 02/18/18 HISTORY: 62-year-old with history of left upper extremity weakness. Noncontrast enhanced CT images of the brain obtained. Images demonstrate some deep white matter ischemic changes. Small areas of lacunar infarction seen in the right and left basal ganglia, likely old and unchanged since the previous exam. A small areas of infarction also seen in the right thalamus also old. No evidence of acute intracranial abnormality seen. IMPRESSION: Deep white matter ischemic changes and numerous areas of lacunar infarctions. No acute intracranial a bnormality seen. POS: [facility]
--- NOTE | 2018-02-18 23:05 | CT ---
CONTRAST ENHANCED CTA IMAGES OF THE NECK AND BRAIN 02/18/18 HISTORY: Left upper extremity weakness, altered speech. Contrast enhanced CTA of the neck and intracranial CTA is performed. 2D and 3D reconstruction images performed on an independent 3D workstation. CTA images of the brain demonstrate the aortic arch to be unremarkable. The right brachiocephalic art rosangela is unremarkable. The proximal most aspect of the right and left internal carotid arteries bilaterally demonstrate some calcified and noncalcified plaque resulting in bilaterally approximately 25% stenosis of the proxima l internal carotid arteries. The right and left vertebral arteries are patent. INTRACRANIAL CTA: Good flow is seen in the right and left internal carotid arteries. No evidence of occlusive disease s een. The right and left middle cerebral arteries, anterior cerebral artery as well as vertebrobasilar artery are unremarkable. There does appear to be some areas of atherosclerotic plaque in the right d istal vertebral artery but flow well seen passed it. The posterior cerebral arteries bilaterally are patent. There is an area of hypodensity in the right thalamus. This may represent an area of stroke. A second area of hypodensity measuring approximately 5 mm is also seen in the right basal ganglia. IMPRESSION: 1. Bilateral proximal ICA 25% stenosis. 2. Right vertebral artery distal atherosclerotic calcified plaque. 3. Area of hypodensity in the right thalamus and right basal ganglia compatible with possible ar eas of stroke. POS: [facility]
[2018-02-18] MEDS ORDERED: Aspirin 81 mg Enteric Coated Tablet PO SCH (23:24)
[2018-02-18] MEDS ORDERED: Topiramate 25 MG TAB PO PRN (23:31)
[2018-02-18] MEDS ORDERED: Metoclopramide HCl 10 MG TAB PO PRN (23:31)
[2018-02-18] MEDS ORDERED: Nitroglycerin 0.4 MG TAB (25 Tab Bottle) SL PRN (23:31)
[2018-02-18] MEDS ORDERED: Baclofen 10 MG TAB PO PRN (23:31)
--- NOTE | 2018-02-18 23:55 | PDOC.EVN ---
Event Note - Event Note Event Note: Was called by nursing staff out of concern for altered speech and facial numbness. Assessed patient immediatly at bedside. She had slow speech but understandable. At rest her left sided mouth seemed to be asymmetric to her right however smiled equally. Sensation was dulled on left side of face. Otherwise CN 2-12 intact. Finger to nose normal. Strength in LUE 4/5 and RUE 5/ 5. BLE 5/5 strength. Sensation dulled in LUE and RLE. Heel to cruz normal bilaterally. Daughter at bedside states her speech has been altered like this since Wednesday ( 5 days ago). She has intermittent burst of normal verbose speech. Otherwise speech is low toned and slow, not slurred. Plan: Will send for stat CT brain followed by CTA brain. Will give additional ASA if CT neg.
[2018-02-18] MEDS ORDERED: HumaLOG 300 UNITS/3 ML VIAL SC PRN (23:59)
[2018-02-18] MEDS ORDERED: Dextrose 50% Abboject 50 ML SYRINGE SLOW IVP PRN (23:59)
[2018-02-18] MEDS ORDERED: Dextrose 5% in Water 1,000 ML IV PRN (23:59)
[2018-02-19 05:23] LABS: Cardiac Risk 3.9 (Less than 4.5)
--- NOTE | 2018-02-19 05:36 | PDOC.FM ---
- Subjective Subjective: Ms Rome is a 62yo female with pmh of insulin dependent DM, HTN, HLD, hep C, lupus, CAD, hx of CVA & TIA, and depression presenting with atypical chest pain and cough. This morning she denies chest pain or focal weakness but reports headache. Reports she is cured of her hep C that was diagnosed by Dr Wolfe but has not taken medications for it. Reports diagnosed with Lupus in 1999 in [place]. Unable to tell me what she takes gabapentin, bacofen, or topiramate for. - Objective MAR Reviewed: Yes Vital Signs & Weight: Vital Signs (12 hours) Temp Pulse Resp BP Pulse Ox 02/19/18 04:00 98.3 F 92 18 136/84 94 L 02/19/18 01:18 98.6 F 85 18 02/19/18 00:00 98.6 F 85 18 152/98 H 92 L Weight Weight 95.799 kg I&O: 02/17/18 02/18/18 02/19/18 06:59 06:59 06:59 Intake Total 210 Balance 210 Result Diagrams: 02/18/18 16:23 02/18/18 16:23 Phys Exam - Physical Examination Constitutional: NAD Respiratory: no wheezing, clear to auscultation bilateral Cardiovascular: RRR Gastrointestinal: soft, non-tender, positive bowel sounds Musculoskeletal: no edema, pulses present Psychiatric: normal affect, A&O x 3 Skin: cap refill <2 seconds Dx/Plan (1) Diabetes mellitus, insulin dependent (IDDM), uncontrolled Code(s): E10.65 - TYPE 1 DIABETES MELLITUS WITH HYPERGLYCEMIA Status: Chronic Qualifiers: Diabetes mellitus complication status: with neurologic complications Diabetes mellitus complication detail: with polyneuropathy Qualified Code(s): E10.42 - Type 1 diabetes mellitus with diabetic polyneuropathy; E10.65 - Type 1 diabetes mellitus with hyperglycemia (2) Hypertension Code(s): I10 - ESSENTIAL (PRIMARY) HYPERTENSION Status: Chronic (3) Costochondritis Code(s): M94.0 - CHONDROCOSTAL JUNCTION SYNDROME [TIETZE] Status: Acute (4) Atypical chest pain Code(s): R07.89 - OTHER CHEST PAIN Status: Acute (5) Hyperlipidemia Code(s): E78.5 - HYPERLIPIDEMIA, UNSPECIFIED Status: Chronic (6) Coronary artery disease Code(s): I25.10 - ATHSCL HEART DISEASE OF [place] CORONARY ARTERY W/O ANG PCTRS Status: Chronic Qualifiers: [place] vs. transplanted heart: [place] heart (7) Depression Code(s): F32.9 - MAJOR DEPRESSIVE DISORDER, SINGLE EPISODE, UNSPECIFIED Status : Chronic (8) Cough Code(s): R05 - COUGH Status: Chronic (9) GERD (gastroesophageal reflux disease) Code(s): K21.9 - GASTRO-ESOPHAGEAL REFLUX DISEASE WITHOUT ESOPHAGITIS Status: Chronic - Plan Plan: Ms Rome is a 62yo female with pmh of insulin dependent DM, HTN, HLD, hep C, lupus, CAD, hx of CVA & TIA, and depression presenting with atypical chest pain and cough. 2. Dsyarthria, facial numbness - Event overnight - CN 2-12 intact, neuro exam unremarkable except LUE 4/5 and dulled sensation in LUE, RLE and left face. - CT brain: No acute abnormalities - CTA brain: Bilateral prox ICA 25% stenosis, right vertebral artery distal atherosclerotic calcified plaque, hypodensity in R thalamus & R basal ganglia compatible with stroke - Received aspirin after CT - MRI today 1. Atypical chest pain likely 2/2 to costochondritis - HEART score: 3 - Trop <.01, BNP <10. CK, CKMB normal. - Reproducible chest pain on palpation, suspect costochondritis - CXR: mild pulmonary vasc congestion and EKG showed LVH, otherwise nl. - Echo (08/26): mild LVH, EF of 50-55%. Pt report having cath last year showed 40 % blockage. - Repeat Echo today - Holding Metoprolol & NPO for possible stress test - PRN nitro - Consulted Cardiology, advice if cath is warranted 3. Cough 2/2 to SYDNIE vs URI vs postnasal drip - Pt complains of chronic cough that has acutely worsened. 4. Insulin dependent DM - Accuchecks - Restart home meds glimeprimide - SSI - 12/24 Hgb A1C: 12 in clinic - Tresiba 110U daily 5. HTN - Continue home meds Spironolactone, lisinopril, carvedilol - Consider lisinopril as cause of cough above - Cardiomegaly, concern for LVH - Holding home metoprolol 6. HLD - Continue home atorvastatin 7. Depression - Continue home wellbutrin 8. CAD - Cath in the last year with "40 % blockage", found one from 2013 with 30% stenosis in LAD 9. GERD - Cont Pantoprazole, metaclopramide Code Status: FULL DVT ppx: Lovenox GI ppx: None
[2018-02-19] MEDS: Hydrochlorothiazide 25 MG TAB PO SCH (08:35)
[2018-02-19] MEDS: Docusate 100 MG CAP PO SCH ×2 (08:35→21:21)
[2018-02-19] MEDS: Lisinopril 20 MG TAB PO SCH ×2 (08:35→21:21)
[2018-02-19] MEDS: Spironolactone 25 MG TAB PO SCH (08:35)
[2018-02-19] MEDS: Bupropion 100 MG SR TAB PO SCH (08:36)
[2018-02-19] MEDS: Carvedilol 25 MG TAB PO SCH ×2 (08:37→21:22)
[2018-02-19] MEDS: Gabapentin 300 MG CAP PO SCH ×3 (08:38→21:21)
[2018-02-19] MEDS: Enoxaparin Sodium 40 MG/0.4 ML SYRINGE SC SCH (08:38)
[2018-02-19] MEDS ORDERED: Spironolactone 25 MG TAB PO SCH (09:00)
[2018-02-19] MEDS ORDERED: INSULIN DEGLUDEC 110 UNIT SQ SCH (09:00)
[2018-02-19] MEDS ORDERED: Hydrochlorothiazide 25 MG TAB PO SCH ×2 (09:00)
[2018-02-19] MEDS ORDERED: Lisinopril 20 MG TAB PO SCH (09:00)
[2018-02-19] MEDS: Glimepiride 1 MG TAB PO SCH (10:07)
[2018-02-19] MEDS ORDERED: Gadobenate Dimeglumine 529 MG/1 ML (20ML VIAL) ONE (12:40)
[2018-02-19 13:15] VITALS: BMI 35.9
--- NOTE | 2018-02-19 13:58 | MRI ---
BRAIN MRI WITH AND WITHOUT IV CONTRAST: Date: 02/19/18 HISTORY: 62-year-old female with left arm weakness starting yesterday. History of hypertension. TIA, evaluate for CVA. TECHNIQUE: Multiplanar, multisequence MRI examination of the brain performed with and without IV contrast is per formed. COMPARISON: 06/03/14. FINDINGS: Scattered areas of chronic white matter ischemic change. Normal expected flow-voids are present. No e vidence for acute infarct. No evidence for mass or midline shift. No acute hemorrhage. No abnormal co ntrast enhancement. IMPRESSION: Atrophy and chronic white matter ischemic change. No evidence for acute infarct. No other acute proce ss. POS: [facility]
[2018-02-19] MEDS ORDERED: Atorvastatin Calcium 40 MG TAB PO SCH (21:00)
[2018-02-19] MEDS ORDERED: Dextrose 50% Abboject 50 ML SYRINGE SLOW IVP PRN (22:30)
[2018-02-19] MEDS ORDERED: Dextrose 5% in Water 1,000 ML IV PRN (22:30)
[2018-02-19] MEDS: HumaLOG 300 UNITS/3 ML VIAL SC PRN (22:45)
--- NOTE | 2018-02-20 05:06 | PDOC.FM ---
- Subjective Subjective: Ms Rome is a 62yo female with pmh of insulin dependent DM, HTN, HLD, hep C, lupus, CAD, hx of CVA & TIA, and depression presenting with atypical chest pain and cough. Denies any chest pain, shortness of breath, weakness. Feels that her speech is not back to baseline. - Objective MAR Reviewed: Yes Vital Signs & Weight: Vital Signs (12 hours) Temp Pulse Resp BP BP Pulse Ox 02/20/18 04:32 118/82 02/20/18 03:49 97.4 F L 100 18 90 L 02/20/18 00:32 136/84 02/19/18 23:54 98.2 F 102 H 19 94 L 02/19/18 21:21 124/92 H 02/19/18 21:07 124/92 H 02/19/18 20:21 98.2 F 102 H 19 02/19/18 20:00 98.4 F 106 H 18 92 L Weight Admit Weight 95.799 kg Weight 95.028 kg I&O: 02/18/18 02/19/18 02/20/18 06:59 06:59 06:59 Intake Total 210 950 Output Total 75 Balance 210 875 Result Diagrams: 02/18/18 16:23 02/18/18 16:23 Phys Exam - Physical Examination Constitutional: NAD Respiratory: clear to auscultation bilateral Cardiovascular: RRR Gastrointestinal: soft, non-tender, positive bowel sounds Musculoskeletal: no edema, pulses present Neurological: normal sensation Strenght 5/5 bilaterall UE & LE Psychiatric: normal affect, A&O x 3 Skin: cap refill <2 seconds Dx/Plan (1) Diabetes mellitus, insulin dependent (IDDM), uncontrolled Code(s): E10.65 - TYPE 1 DIABETES MELLITUS WITH HYPERGLYCEMIA Status: Chronic Qualifiers: Diabetes mellitus complication status: with neurologic complications Diabetes mellitus complication detail: with polyneuropathy Qualified Code(s): E10.42 - Type 1 diabetes mellitus with diabetic polyneuropathy; E10.65 - Type 1 diabetes mellitus with hyperglycemia (2) Hypertension Code(s): I10 - ESSENTIAL (PRIMARY) HYPERTENSION Status: Chronic (3) Costochondritis Code(s): M94.0 - CHONDROCOSTAL JUNCTION SYNDROME [TIETZE] Status: Acute (4) Atypical chest pain Code(s): R07.89 - OTHER CHEST PAIN Status: Acute (5) Hyperlipidemia Code(s): E78.5 - HYPERLIPIDEMIA, UNSPECIFIED Status: Chronic (6) Coronary artery disease Code(s): I25.10 - ATHSCL HEART DISEASE OF [place] CORONARY ARTERY W/O ANG PCTRS Status: Chronic Qualifiers: [place] vs. transplanted heart: [place] heart (7) Depression Code(s): F32.9 - MAJOR DEPRESSIVE DISORDER, SINGLE EPISODE, UNSPECIFIED Status : Chronic (8) Cough Code(s): R05 - COUGH Status: Chronic (9) GERD (gastroesophageal reflux disease) Code(s): K21.9 - GASTRO-ESOPHAGEAL REFLUX DISEASE WITHOUT ESOPHAGITIS Status: Chronic - Plan Plan: Ms Rome is a 62yo female with pmh of insulin dependent DM, HTN, HLD, hep C, lupus, CAD, hx of CVA & TIA, and depression presenting with atypical chest pain and cough. 1. Dsyarthria, facial numbness - CN 2-12 intact, neuro exam unremarkable except LUE 4/5 and dulled sensation in LUE, RLE and left face. - CT brain: No acute abnormalities - CTA brain: Bilateral prox ICA 25% stenosis, right vertebral artery distal atherosclerotic calcified plaque, hypodensity in R thalamus & R basal ganglia compatible with stroke - MRI negative for acute abnormalities - Risk Factor management 2. Atypical chest pain likely 2/2 to costochondritis - HEART score: 3 - Trop <.01, BNP <10. CK, CKMB normal. - Reproducible chest pain on palpation, suspect costochondritis - CXR: mild pulmonary vasc congestion and EKG showed LVH, otherwise nl. - Echo (08/26): mild LVH, EF of 50-55%. Pt report having cath last year showed 40 % blockage. - Echo pending - PRN nitro - Lipids normal - Cardiology consulted, they felt it was noncardiac in nature 3. Cough 2/2 to SYDNIE vs URI vs postnasal drip - Pt complains of chronic cough that has acutely worsened. 4. Insulin dependent DM - Accuchecks - Continue home glimeprimide - SSI - 12/24 Hgb A1C: 12 in clinic - Tresiba 110U daily 5. HTN - Continue home meds Spironolactone, lisinopril, carvedilol, metoprolol - Consider lisinopril as cause of cough above - Cardiomegaly, concern for LVH 6. HLD - Continue home atorvastatin 7. Depression - Continue home wellbutrin 8. CAD - Cath in the last year with "40 % blockage", found one from 2013 with 30% stenosis in LAD 9. GERD - Cont Pantoprazole, metaclopramide Code Status: FULL DVT ppx: Lovenox GI ppx: None Dispo: Likely D/c today
[2018-02-20] MEDS: HumaLOG 300 UNITS/3 ML VIAL SC PRN ×2 (06:33→11:14)
[2018-02-20] MEDS: Lisinopril 20 MG TAB PO SCH (08:26)
[2018-02-20] MEDS: Hydrochlorothiazide 25 MG TAB PO SCH (08:27)
[2018-02-20] MEDS: Bupropion 100 MG SR TAB PO SCH (08:27)
[2018-02-20] MEDS: Gabapentin 300 MG CAP PO SCH (08:28)
[2018-02-20] MEDS: Carvedilol 25 MG TAB PO SCH (08:28)
[2018-02-20] MEDS: Spironolactone 25 MG TAB PO SCH (08:28)
[2018-02-20] MEDS: Docusate 100 MG CAP PO SCH (08:28)
[2018-02-20] MEDS: Glimepiride 1 MG TAB PO SCH (08:29)
[2018-02-20 08:30] VITALS: TEMP 97.7
[2018-02-20] MEDS: Enoxaparin Sodium 40 MG/0.4 ML SYRINGE SC SCH (08:32)
[2018-02-20 08:36] VITALS: BP 122/82
--- NOTE | 2018-02-20 09:02 | CON ---
DATE OF CONSULTATION: 02/19/2018 INDICATION FOR CONSULTATION: A 62-year-old female who was admitted with congestive heart failure typ e symptoms and chest discomfort. HISTORY OF PRESENT ILLNESS: This very pleasant 62-year-old female who has multiple medical problems, had been at home and started having some chest discomfort which she describes as being sharp, stabbi ng pains which radiated from the chest to the back area and also some left arm numbness. She talked to a friend of hers and they informed her she should go to the hospital because of somewhat she would be having a heart attack. She also been having some slurred speech and some weakness as well as jessica e coughing and wheezing and some nausea and some mild vomiting. When she arrived here, she was admit juan to the hospital for further evaluation and treatment. She did undergo a cardiac catheterization in 02/2016 which showed LAD stenosis of 20%. She also had ejection fraction about 45-50%. Her last echocardiogram showed ejection fraction of 50-55%. She was last seen in the office by Dr. Tera gaffney 07/2017 that she was not having any complaints of chest discomfort at that time. At this time, she remains relatively stable. She has had no further significant chest discomfort. She did have some slurred speech and some left-sided weakness and she is being seen by physical therapy. At this time, she is alert. She says she is fatigued, but she is otherwise able to ambulate with a walker and did not have any significant new abnormalities. PAST MEDICAL HISTORY: Significant for the coronary artery disease which is single vessel mild LAD di sease. She has had history of TIAs, history of CVA, history of diabetes, hypertension, hepatitis C, history of lupus. She has had chronic back pain. She has morbid obesity, gastroesophageal reflux di sease. She has had genital HSV. She has a history of vasovagal episodes of syncope. She has had co mpartment syndrome of the forearm. She has history of hyperlipidemia, hypertension, type 2 diabetes. She has had history of depression. She has had a history of GI bleed in the past, history of anemi a, in the past also of acute kidney injury or insufficiency which apparently had resolved. She has h ad back surgery as well as the cardiac catheterization x2. She has had knee surgery, had a hysterect pamela. She has had a history of ischemic colitis. ALLERGIES: She is allergic to PIOGLITAZONE, INSULIN, HUMALOG INSULIN, and also . REVIEW OF SYSTEMS: She has had some chronic back pain. She complains of some numbness in the left a rm. She has some visual changes, chronic fatigue and history of syncope in the past which is felt to be due to vasovagal episodes. Otherwise, 12-point review of systems unremarkable except what was no juan in the history of present illness. PHYSICAL EXAMINATION: GENERAL: Reveals an elderly female who is in no acute distress. She does appear to be fatigued and somewhat sleepy. VITAL SIGNS: Blood pressure is 120/70, heart rate is 83 and regular. She is afebrile, respiratory r ate is 18. HEENT: Shows head to be normocephalic and atraumatic. Carotid pulses are present. I did not hear a ny bruits. There was no JVD noted. The thyroid did not appear to be enlarged. CHEST: Clear to auscultation. Did not hear any rales, rhonchi or wheezing. CARDIOVASCULAR: Exam reveals a regular rate and rhythm, normal S1, S2. There was no S3, S4. There were no significant murmurs, heaves, thrills, bruits or rubs. ABDOMEN: Shows obesity with positive bowel sounds. EXTREMITIES: Showed no clubbing or cyanosis. There is no evidence of edema today. Pedal pulses are present. NEUROLOGIC: The patient appears to be intact. She is able to walk with assistance with a walker. LABORATORY DATA: EKG shows a normal sinus rhythm with minimal nonspecific EKG changes not significan t ischemia. Her cardiac enzymes are negative. The LDL was 73. Her hemoglobin is 13.6, creatinine 0 .95. IMPRESSION AND RECOMMENDATIONS: 1. Atypical chest pain which is probably noncardiac in nature, especially in view of the fact that s he had a negative stress test just 2 years ago with only slight abnormality of a cardiac catheterizat ion approximately 2 years ago with only 20% left anterior descending artery stenosis. If she keeps h er LDL level under good control and watches her diabetes and this should actually remain stable. 2. History of hypertension. This is also under good control at this time. This will be dealt with by the primary care service. 3. History of hypercholesterolemia also which is under good control with the present medications. 4. History of cerebrovascular or transient ischemic attacks in the past. She appears to be relative ly stable and did not appear to be any new findings. She did have a CT scan performed yesterday whic h showed some white matter ischemic changes and small lacunar infarcts in the past, but no acute find ings were noted. She had an echocardiogram today, which the results are still pending. At this time , we will continue to follow the patient with you, but it does not appear that her pain is cardiac in nature. 5. Some congestive heart failure symptoms. She has been drinking increased amounts of fluids, the evelin hill says that she was recently in the hospital with dehydration and she is somewhat fearful that she may become dehydrated. She has been drinking increased amounts of fluid. At this time, she is o n Aldactone. We can always add a low dose of Lasix, but she has no edema today and her chest was antonella ar. Her present medications include atorvastatin, Wellbutrin, Coreg, Colace, Lovenox, DVT prophylaxi s, Neurontin, Amaryl, hydrochlorothiazide. She is on insulin as needed, lisinopril, Protonix, baclof en p.r.n. medications. We would be more than happy to follow the patient with you throughout her hos pital course, but at this time, overall cardiac status appears to be stable. We would advise her to certainly back off on the fluid slightly. Otherwise, I believe she remains stable from a cardiac sta ndpoint. The echocardiogram will be repeated for evaluation of the left ventricular systolic functio n and further recommendations will depend on the results of the echocardiogram.
--- NOTE | 2018-02-20 09:36 | PDOC.CTH ---
Cardiology Progress Note - Subjective The pt seen and examined. No overnight events. No cardiac complaints. She denied any dizziness, numbness to face. - Objective Vital Signs Temp Pulse Resp BP BP Pulse Ox 02/20/18 08:26 122/82 02/20/18 08:00 97.7 F 91 16 95/58 L 90 L 02/20/18 06:00 122/82 02/20/18 04:32 118/82 02/20/18 03:49 97.4 F L 100 18 90 L 02/20/18 00:32 136/84 02/19/18 23:54 98.2 F 102 H 19 94 L Admit Weight 211 lb 3.2 oz Weight 209 lb 3.2 oz 02/19/18 02/20/18 02/21/18 06:59 06:59 06:59 Intake Total 210 1070 Output Total 75 Balance 210 995 - Physical Examination General/Neuro: alert & oriented x3 Neck: no JVD present Lungs: CTA Heart: RRR Abdomen: soft Extremities: other: (No edema) - Telemetry Telemetry Rhythm: SR 90s - Labs Result Diagrams: 02/18/18 16:23 02/18/18 16:23 Troponin/CKMB CK-MB (CK-2) 1.5 ng/mL (0-6.6) 02/18/18 16:23 Troponin I Less than 0.010 ng/mL (< 0.028) 02/18/18 22:05 - Assessment/Plan 1. Atypical CP - possible 2/2 costochondritis? Cath in 2016 showed mild CAD with 20% stenosis in LAD. Echo result is pending at this time for CHF eval. 2. mild CAD with 20% stenosis in LAD in 2016 - on BBlocker, SYDNIE, ASA, and statin 3. HTN - stable with current medication 4. Hyperlipidemia -LDL 73 on 02/19/18; On Lipitor 80mg qd 5. Insulin dependent DM - managed by PCP 6. CVA/TIA? - stable MAR reviewed * Echo result is pending at this time. If Echo shows WNL, ok to d/c the pt to home. The pt already has a f/u appt w/ Dr Haley's office on 03/08/18 <Addendum> Echo on 02/19/18 showed EF 40-45% (50-55% in 08/2017) with mild diastolic dysfunction. From Cardiac standpoint, the pt is stable to d/c home. Review of Systems - Review of Systems Constitutional: reports: no symptoms reported EENTM: reports: no symptoms reported Respiratory: reports: no symptoms reported Cardiac (ROS): reports: no symptoms reported ABD/GI: reports: no symptoms reported : reports: no symptoms reported Musculoskeletal: reports: no symptoms reported
--- NOTE | 2018-02-20 21:03 | ADD-HP ---
Please see the history and physical as well as the progress note dated today by Dr. Mily Mota. HISTORY OF PRESENT ILLNESS: This is a 62-year-old patient, who is just not really a good historian, who sounds like she has been seeing Dr. Haley for a while for intermittent left-sided chest pain t hat can last up to 15 seconds, but then basically got worse yesterday, radiated to her back, maybe as sociated with a little bit of tightness, shortness of breath. Has an extremely positive review of sy stems for numerous issues, and there is some question if she had 40% LAD blockage done at the [facility] last year, and so was admitted and then it was determined that maybe she has been having a little bit of left arm weakness and maybe some slight change in speech issues that last about 5 days . So, is also being worked up for stroke protocol as well. PAST MEDICAL HISTORY/HOME MEDICATIONS/ALLERGIES/FAMILY HISTORY/PAST SURGICAL HISTORY/SOCIAL HISTORY/R EVIEW OF SYSTEMS: All per Dr. Mota's history and physical for which I concur. PHYSICAL EXAMINATION: GENERAL: No apparent distress. No respiratory distress. Alert and oriented x3, pleasant. ENT: Normal. Normal cranial nerves II-XII. Moist mucosa. NECK: No bruits or JVD. CHEST: Clear. CARDIOVASCULAR: Regular rate and rhythm. ABDOMEN: Benign. EXTREMITIES: Show trace edema.
--- NOTE | 2018-02-20 21:19 | ADD-HP ---
ADDENDUM Neurologically, maybe has only slight weakness in the left arm compared to the right arm, but I reall y do not appreciate that much. The leg certainly seemed fine. There is a CTA of the brain that show s area of hypodensity in right thalamus and right basal ganglia consistent with possible area of a st roke, but it was not picked up on the initial CT. LABORATORY DATA: Pretty much noncontributory other than her sugar that has been a little bit elevate d. Cardiac enzymes have been negative. ASSESSMENT AND PLAN: 1. Chest pain, worrisome enough with known coronary artery disease and I think we will get Cardiolog y involved and see if they want to do a stress test on her. 2. Possible left-sided weakness and may be change in speech, although it sounds fairly questionable. We will get an MRI and do a stroke workup and is on prophylactic Lovenox and aspirin at this point in time, but it really does not sound like she has major new symptoms that does sounds like a stroke at all and likely what we are seeing on that CTA of the head is old, but we will see what the MRI nicole ws and based plans on what that shows us.
--- NOTE | 2018-02-20 21:53 | ADD-CON ---
ADDENDUM DATE OF CONSULTATION: 02/20/[address] Please see notes from Dr. Karlee Bartlett which I concur. The patient was seen and evaluated, examined and discussed with the residents. Basically, physical exam is completely normalized. MRI of the br ain was normal. She is not having any more chest pain and Cardiology says they do not think this is cardiac related. She will be able to be discharged. I am not confident enough to think this was an actual neurologic event to change in her anticoagulants, so we will just keep her on aspirin faithful ly and keep her on all her other home medicines, although may increase some of her insulin for the el evated blood sugar, but otherwise should be good to be discharged today.
--- NOTE | 2018-02-21 08:42 | DIS-2 ---
DATE OF ADMISSION: 02/18/2018 DATE OF DISCHARGE: 02/20/2018 RESIDENT: Karlee Bartlett, PGY1. ADMITTING ATTENDING: Dewayne Burkett M.D. DISCHARGE ATTENDING: Dewayne Burkett M.D. CONSULTATIONS: Cardiology (Dr. Chase) PROCEDURES: 1. Brain CT/CTA: No acute abnormalities. 2. Brain MRI: no acute abnormalities PRIMARY DIAGNOSES: 1. Transient ischemic attack. 2. Atypical chest pain, likely secondary to costochondritis. SECONDARY DIAGNOSES: 1. Cough. 2. Insulin-dependent diabetes. 3. Hypertension. 4. Hyperlipidemia. 5. Depression. 6. Coronary artery disease. 7. Gastroesophageal reflux disease. DISCHARGE MEDICATIONS: 1. Atorvastatin 80 mg at bedtime, 2. Baclofen 10 mg q.8 hours. 3. Bupropion 200 daily. 4. Colace 100 mg b.i.d. 5. Gabapentin 600 mg t.i.d. 6. Glimepiride 1 mg daily. 7. Hydrochlorothiazide 25 mg daily. 8. Tresiba 110 units daily. 9. Lansoprazole 330 mg b.i.d. 10. Reglan 10 mg p.o. p.r.n. 11. Nitrostat 0.4 mg sublingual every 5 minutes p.r.n. 12. Aspirin 81 mg daily. 13. Metoprolol succinate 25 mg daily. 14. Naproxen 500 mg b.i.d. p.r.n. 15. Topamax 25 mg daily. 16. Ventolin inhaler 2 puffs q.4 hours. HISTORY OF PRESENT ILLNESS AND HOSPITAL COURSE: Ms. Rome is a 62-year-old female with past medical history of insulin-dependent diabetes, hypertension, hyperlipidemia, history of a CVA and transient ischemic attack, presenting with atypical chest pain and cough. Her chest pain was reproducible on palpation and chest x-ray showed mild pulmonary vascular congestion. Her EKG was remarkable for LVH. Echo showed: EF 40-45%, mild dystolic dysfunction, trace MR & TR. Cardiology was consulted and they felt that the chest pain was noncardiac in nature. During her hospital stay, a code green was called due to dysarthria and facial numbness and left-sided weakness. CT and CTA showed no acute abnormalities. MRI was negative for acute abnormalities. Focused on risk factor management with controlling her blood pressure, diabetes, hyperlipidemia. Chronic conditions including insulin-dependent diabetes, hypertension, hyperlipidemia, depression, and GERD were stable throughout stay with her home medications. DISPOSITION: Stable. DISCHARGE INSTRUCTIONS: 1. Location: Home. 2. Diet: Heart healthy, low sodium, diabetic diet. 3. Activity: No restrictions. 4. Follow up at [facility] within the next week. VANIA
== END 2018-02-20 12:19 | disposition home health service (06) ==
LOC: ERS 15:42 → INTOOBSV 20:23 → 2NO 20:23 → 2SE 23:05
PROVIDERS: ADMIT Family Medicine; ATTEND Family Medicine
DX: G45.9 Transient cerebral ischemic attack, unspecified (principal); R07.89 Other chest pain; E11.9 Type 2 diabetes mellitus without complications; I10 Essential (primary) hypertension; E78.5 Hyperlipidemia, unspecified; I25.10 Atherosclerotic heart disease of native coronary artery without angina pectoris; K21.9 Gastro-esophageal reflux disease without esophagitis; F32.9 Major depressive disorder, single episode, unspecified; M94.0 Chondrocostal junction syndrome [Tietze]; Z79.82 Long term (current) use of aspirin; Z79.899 Other long term (current) drug therapy; Z79.84 Long term (current) use of oral hypoglycemic drugs; Z88.8 Allergy status to other drugs, medicaments and biological substances
CPT/HCPCS: 70450; 70496; 70498; 70553; 71045; 80053; 80061; 82550; 82553; 82962 ×3; 83690; 83880; 84484 ×2; 85025; 93005; 93306; 96374; 97110; 97116; 97139; 97530; 99285; G8978; G8979; 36415; 36416; A4216; A9579; J1650; J1940

== ENCOUNTER 2018-06-22 12:32 | Outpatient (CLI) | payer MEDICARE, MEDICAID ==
--- NOTE | 2018-06-22 13:32 | ULT ---
SOFT TISSUE SONOGRAM LEFT UPPER ARM: History: Palpable mass. FINDINGS: Sonographic evaluation of the area of palpable concern at the left upper arm shows subcutaneous tissu e and intact underlying muscular bundles. There is no evidence of mass or fluid collection. POS: [facility]
== END 2018-06-22 12:33 | disposition home or self-care (01) ==
LOC: BICULT 12:32
PROVIDERS: ATTEND Student in an Organized Health Care Education/Training Program
DX: M79.602 Pain in left arm (principal)
CPT/HCPCS: 76999

== ENCOUNTER 2018-07-19 09:16 | Outpatient (CLI) | payer MEDICARE, MEDICAID | END 2018-07-19 09:17 | disposition home or self-care (01) | LOC: BICMAMMO 09:16 | PROVIDERS: ATTEND Family Medicine | DX: N64.4 Mastodynia (principal) | CPT/HCPCS: 77066; G0279 ==

== ENCOUNTER 2018-09-15 09:17 | Outpatient (CLI) | payer MEDICARE, MEDICAID ==
[2018-09-15] MEDS ORDERED: Gadobenate Dimeglumine 529 MG/1 ML (20ML VIAL) ONE (10:34)
--- NOTE | 2018-09-15 11:06 | RAD ---
LEFT HIP 2 VIEWS: Date: 09/15/18 HISTORY: Pain. COMPARISON: 03/03/13. FINDINGS: Mild loss of joint space height. Contour of the femoral head is maintained. No fracture or dislocatio n. IMPRESSION: Mild degenerative change. POS: [facility]
--- NOTE | 2018-09-15 11:15 | RAD ---
RIGHT HIP TWO VIEWS: History: Low back pain and right hip pain. FINDINGS: Post op right SI joint fusion changes. Arthrosis and degenerative changes right hip joint. No acute f racture or dislocation. IMPRESSION: No acute fracture or dislocation of the right hip. Degenerative and osteoarthrosis changes. Right SI joint fusion. POS: TPC
--- NOTE | 2018-09-15 11:17 | RAD ---
LUMBAR SPINE TWO VIEWS: History: Low back pain and right hip pain. FINDINGS: AP and lateral views of the lumbar spine are performed. There are extensive post-operative changes wi th fusion and laminectomy changes. Right SI joint fusion. Comparison is made to a prior 07-07- stud y. There are some pelvic and left sided paravertebral phleboliths. Generalized spondylosis with some progressive narrowing at L1-2 and L2-3 from the prior study. IMPRESSION: Extensive post-operative changes with some progressive spondylosis and disc space narrowing at L1-2 a nd L2-3. No significant new process. POS: TPC
--- NOTE | 2018-09-15 14:14 | MRI ---
MRI LUMBAR SPINE WITH AND WITHOUT CONTRAST: Date: 09/15/18 COMPARISON: 07/25/16. HISTORY: Low back pain, radiating down her anterior abdomen for years. Pain is worsening. TECHNIQUE: MRI of lumbar spine is performed with and without intravenous Gadolinium administration. Multisequent ial, multiplanar imaging is performed. FINDINGS: There is heterogeneous T1 marrow signal hypointensity involving the inferior aspect of L1, superior a spect of L2, inferior aspect of L2, and superior aspect of L3. Marrow signal changes are compatible w ith Type I Modic change. Vertebral body height is maintained and there is no evidence of fracture thr oughout the lumbar spine. There is associated STIR hyperintensity at the level of Modic change. Other lepe, no MRI evidence of ligamentous injury. Symmetric signal intensity of the psoas muscles. Appropriate signal intensity of the visualized solid organs. Cysts in the left and right kidney are noted. Conus medullaris terminates at the inferior aspect of L1. On the postcontrast images, there is no abnormal enhancement within the thecal sac, including the cau da equina and conus medullaris. Disc prosthesis at L4-L5 and L5-S1. Fusion hardware traversing the right SI joint. Fusion changes and disc prosthesis have associated artifact. Conus medullaris terminates at the L1-L2 disc space level. T12-L1: Desiccation with generalized disc bulge. Mild ligamentum flavum thickening and facet hypertr ophy. Mild central canal stenosis. Mild bilateral foraminal narrowing. L1-L2: Desiccation with moderate loss of disc space height. There continues to be a generalized disc bulge with a midline inferior disc extrusion. There is also evidence of significant disc material in the left subarticular zone. Overall, there is stable mild to moderate central canal stenosis. Modera te right and mild left foraminal narrowing. L2-L3: Desiccation with mild to moderate loss of disc space height. There is no significant posterio r disc abnormality. No significant central canal stenosis. Laminectomy defect is present. Minimal enh ancing scar tissue at the laminectomy defect site. L3-L4: Adequate disc hydration. No significant posterior disc abnormality. No significant central ca nal stenosis. Neural foramina are patent. L4-L5: There is a disc prosthesis. There is a broad based osteophyte ridge, ligamentum flavum thicke clark, and facet hypertrophy that result in mild central canal stenosis. L5-S1: There is a disc prosthesis. No significant central canal stenosis. Neural foramina are mildly narrowed bilaterally. There appears to be pseudoarthrosis of the right L5 ala with the sacrum. There is atrophy involving posterior muscles at L5 and S1. IMPRESSION: 1. Postsurgical changes of the lumbar spine as above. There is no evidence of high grade central can al stenosis or high grade foraminal narrowing. 2. Type I Modic changes involving the lumbar spine at L1-L2 and L2-L3. POS: KANDY
== END 2018-09-15 09:18 | disposition home or self-care (01) ==
LOC: BICMRI 09:17
PROVIDERS: ATTEND Family Medicine
DX: M54.5 Low back pain (principal); M47.816 Spondylosis without myelopathy or radiculopathy, lumbar region; M48.061 Spinal stenosis, lumbar region without neurogenic claudication; M16.11 Unilateral primary osteoarthritis, right hip; Z98.1 Arthrodesis status; M16.12 Unilateral primary osteoarthritis, left hip; Z98.890 Other specified postprocedural states
CPT/HCPCS: 72100; 72158; 82565; A9577

== ENCOUNTER 2018-12-09 09:10 | Outpatient (CLI) | payer MEDICARE, MEDICAID ==
--- NOTE | 2018-12-09 10:04 | MMO ---
Left Breast MAMMO Unilat Diag DDI LT+AHSAN. CLINICAL HISTORY: Patient is 63 years old and is seen for diagnostic exam and lump or thickening in the left breast. The patient has no family history of breast cancer. The patient has no personal history of cancer. The patient has a history of right needle biopsy - benign - per pt had bx at [facility] an "no cancer" fou. VIEWS: The views performed were: left craniocaudal with tomosynthesis; left mediolateral oblique with tomosynthesis; and left mediolateral. FILMS COMPARED: The present examination has been compared to prior imaging studies performed at [facility] on 12/16/2015, 12/17/2016, 07/05/2017, 07/19/2018 and 12/09/2018. MAMMOGRAM FINDINGS: There are scattered fibroglandular densities. US is negative. There are no suspicious masses, suspicious calcifications, or new areas of architectural distortion. IMPRESSION: A ROUTINE FOLLOW-UP MAMMOGRAM IN 1 YEAR IS RECOMMENDED. THE RESULTS OF THIS EXAM WERE SENT TO THE PATIENT. ACR BI-RADS Category 2 - Benign finding MAMMOGRAPHY NOTE: 1. A negative mammogram report should not delay a biopsy if a dominant of clinically suspicious mass is present. 2. Approximately 10% to 15% of breast cancers are not detected by mammography. 3. Adenosis and dense breasts may obscure an underlying neoplasm.
--- NOTE | 2018-12-09 11:12 | ULT ---
LEFT BREAST ULTRASOUND: HISTORY: Palpable abnormality in the 9 to 11 o'clock positions of the left breast. CORRELATION: Mammogram from the same day. FINDINGS: Sonographic evaluation in the region of palpable concern, at the 9, 10, and 11 positions of the left breast, demonstrate no abnormality. IMPRESSION: BI-RADS category 2-Benign findings. Return to annual mammographic screening. POS: OFF
== END 2018-12-09 09:11 | disposition home or self-care (01) ==
LOC: BICMAMMO 09:10
PROVIDERS: ATTEND Family Medicine
DX: N63.0 Unspecified lump in unspecified breast (principal)
CPT/HCPCS: 76642; 77065; G0279

== ENCOUNTER 2019-01-06 07:26 | Day surgery (SDC) | payer MEDICARE, MEDICAID ==
[2019-01-05 14:24] VITALS: BMI 33.7
[2019-01-06] MEDS ORDERED: Midazolam HCl 2 mg/2 ml Vial ONE (08:20)
[2019-01-06] MEDS ORDERED: Lidocaine 1% PF 5 ML VIAL ONE (08:20)
[2019-01-06] MEDS ORDERED: Sodium Bicarbonate 2.5 MEQ/5 ML VIAL ONE (08:20)
[2019-01-06] MEDS ORDERED: Fentanyl 100 MCG/2 ML VIAL ONE (08:20)
--- NOTE | 2019-01-06 09:33 | ULT ---
US Hepatic Bx ULTRASOUND GUIDED HEPATIC BIOPSY: CLINICAL HISTORY: Abnormal liver enzymes. PROCEDURE: Informed consent was obtained and the patient was escorted to the procedural suite, placed in supine position. Conscious sedation was administered by the radiology nurse, with the patient consistently monitored throughout the duration of the exam in stable condition, duration of 45 minutes. The patien t's skin was prepped and draped in a standard sterile fashion and topical anesthesia with buffered 1% lidocaine was performed. After a small skin incision was made, an 18-gauge needle was advanced to the leading edge of the right hepatic lobe. After adequate placement was confirmed with ultrasound imaging, 1 subsequent core specimen was obtained via percutaneous biopsy. Specimen was submitted to p athology for interpretation. No unexpected procedural complications were present. The patient was monitored in radiology holding in stable condition prior to discharge with family member. IMPRESSION: Technically successful ultrasound-guided percutaneous hepatic biopsy. Pathology results are pending.
[2019-01-06 11:24] VITALS: BP 121/63; TEMP 98.3
== END 2019-01-06 10:30 | disposition home or self-care (01) ==
LOC: ULT 07:26
PROC: 0FD13ZX Extraction of Right Lobe Liver, Percutaneous Approach, Diagnostic (ICD-10-PCS; principal; 2019-01-06)
DX: K75.81 Nonalcoholic steatohepatitis (NASH) (principal); K74.0 Hepatic fibrosis; E11.9 Type 2 diabetes mellitus without complications; I10 Essential (primary) hypertension; I25.10 Atherosclerotic heart disease of native coronary artery without angina pectoris; M19.90 Unspecified osteoarthritis, unspecified site; K21.9 Gastro-esophageal reflux disease without esophagitis; F41.9 Anxiety disorder, unspecified; F32.9 Major depressive disorder, single episode, unspecified; Z86.73 Personal history of transient ischemic attack (TIA), and cerebral infarction without residual deficits; Z87.891 Personal history of nicotine dependence; Z79.4 Long term (current) use of insulin; Z79.82 Long term (current) use of aspirin; Z79.899 Other long term (current) drug therapy
CPT/HCPCS: 47000; 76942; 88307; 88313; J2001; J2250; J3010

== ENCOUNTER 2019-03-18 08:10 | Observation (INO) | payer MEDICARE, MEDICAID ==
[2019-03-18 08:36] LABS: #Basophils 0.1 thou/uL (0.0-0.2); #Eosinphils 0.1 thou/uL (0.0-0.7); #Lymphocytes 2.6 thou/uL (1.20-3.40); #Monocytes 0.3 thou/uL (0.11-0.59); #Neutrophils 2.4 thou/uL (1.40-6.50); %Basophils 1.7 % (0.0-1.0); %Eosinophils 2.5 % (0.0-10.0); %Lymphocytes 47.4 % (21.0-51.0); %Monocytes 5.6 % (0.0-10.0); %Neutrophils 42.9 % (42.0-75.0); Hemoglobin 13.7 g/dL (12.0-16.0); Mean Corpuscular HGB CONC 33.2 g/dL (32.0-36.0); Mean Corpuscular Hemoglobin 30.3 pg (27.0-31.0); Mean Corpuscular Volume 91.1 fL (78.0-98.0); Mean Platelet Volume 6.8 fL (7.4-10.4); Platelet Count 245 thou/uL (130-400); RBC Distribution Width 13.6 % (11.5-14.5); Red Blood Cell (RBC) Count 4.54 mill/uL (4.20-5.40); White Blood Cell (WBC) Count 5.5 thou/uL (4.8-10.8)
[2019-03-18] MEDS ORDERED: Ondansetron PF 4 MG/2 ML Vial ONE (08:51)
[2019-03-18] MEDS ORDERED: Morphine 4 MG/ML VIAL ONE (08:51)
--- NOTE | 2019-03-18 08:56 | RAD ---
EXAM: Single view of the chest HISTORY: Chest pain COMPARISON: 02/18/2018 FINDINGS: Single view of the chest shows a normal sized cardiomediastinal silhouette. There is no aaron dence of consolidation, mass, or pleural effusion. The bones are unremarkable. IMPRESSION: No evidence of acute cardiopulmonary disease
[2019-03-18 09:04] LABS: ALT (SGPT) 33 U/L (8-55); AST (SGOT) 23 U/L (5-34); Albumin 4.2 g/dL (3.4-4.8); Alkaline Phosphatase 155 U/L (40-150); Anion Gap 12 mmol/L (10-20); BUN (Urea Nitrogen) 21 mg/dL (9.8-20.1); Bilirubin, Total 0.3 mg/dL (0.2-1.2); CK (CPK) 173 U/L (29-168); Calc. Creatinine Clearance 0 mL/min (70-130); Calcium 10.3 mg/dL (7.8-10.44); Carbon Dioxide 24 mmol/L (23-31); Chloride 106 mmol/L (98-107); Estimated GFR-MDRD 71; Globulin 4.4 g/dL (2.4-3.5); Glucose 170 mg/dL (80-115); Lipase 14 U/L (8-78); Potassium 4.1 mmol/L (3.5-5.1); Protein, Total 8.6 g/dL (6.0-8.3); Sodium 138 mmol/L (136-145)
[2019-03-18 09:19] LABS: Bilirubin Negative (Negative); Blood, Urine Negative (Negative); Glucose, Urine (Dipstick) 500 mg/dL (Negative); Leukocyte Negative (Negative); Nitrite Negative (Negative); Protein, Urine (Dipstick) Negative (Neg-Trace); Urobilinogen 0.2 mg/dL (Less than 2)
[2019-03-18 09:20] LABS: Clarity Clear (Clear)
--- NOTE | 2019-03-18 09:39 | CT ---
CT Abdomen Pelvis W Con: 03/18/2019 9:05 AM CLINICAL INFORMATION: Abdominal pain since last night in the lower abdomen that is worse with urinati on COMPARISON: 09/03/2017 TECHNIQUE: Multiple contiguous axial images were obtained and a CT of the abdomen and pelvis with IV contrast. C oronal reformats were performed. FINDINGS: Lower Chest: See dedicated chest CT for findings above the diaphragm Abdomen: Liver: within normal limits. Bile Ducts: Normal caliber. Gallbladder: Surgically removed Pancreas: within normal limits. Spleen: within normal limits. Adrenals: within normal limits. Kidneys: within normal limits. Pelvis: Reproductive Organs: Status post hysterectomy Ureters: within normal limits. Bladder: within normal limits. Peritoneum: No ascites or free air, no fluid collection. Bowel: Normal caliber. Normal appendix. Scattered diverticula in the colon. Mesentery and Retroperitoneum: No enlarged mesenteric or retroperitoneal lymph nodes. Vessels: Atherosclerotic calcifications. Abdominal Wall: within normal limits. Bones: Degenerative changes and postsurgical changes in the spine. Hardware is seen in the right sacr oiliac joint. IMPRESSION: 1. No evidence of acute intraabdominal or pelvic abnormality. 2. Diverticulosis
--- NOTE | 2019-03-18 09:45 | ULT ---
EXAM: Left lower extremity venous ultrasound HISTORY: Left lower extremity pain and edema COMPARISON: None TECHNIQUE: Multiplanar grayscale and color Doppler images were obtained in a left lower extremity bashir ous ultrasound. Spectral analysis of the Doppler waveforms were performed. FINDINGS: The common femoral vein, profunda femoral vein, superficial femoral vein, and popliteal vei n are normal in appearance without visible thrombus. These vessels demonstrate normal compression, flow, and augmentation. The posterior tibial vein and greater saphenous vein are patent without evidence of thrombus. IMPRESSION: No evidence of DVT.
--- NOTE | 2019-03-18 09:57 | CT ---
CT ANGIOGRAM THORAX WITH IV CONTRAST AND 3D RCONSTRUCTIONS: History Chest pain, elevated D-dimer. COMPARISON: 05/04/2016. FINDINGS: No filling defects are seen in the pulmonary arteries to suggest a pulmonary embolus. Vascular calcifications are seen in the coronary arteries as well as involving the thoracic aorta. T he thoracic aorta is normal in caliber without evidence of an aortic dissection. The heart is mildly enlarged. Mediastinal structures have a normal appearance, and there is no evidence of lymphadenopathy. This exam is obtained in expiratory phase of imaging with volume loss within the lungs bilaterally. No pulmonary nodule, mass, or pleural effusion is seen in the lungs bilaterally. The visualized upper abdomen demonstrates evidence of postcholecystectomy changes. There is a sugges tion of a small nodule in the superior aspect right adrenal gland which is difficult to further shae cterize on this postcontrast enhanced CT scan exam. Degenerative changes are seen in the spine. IMPRESSION: 1. No CT evidence of a pulmonary embolus. 2. Mild cardiomegaly. 3. Suggestion of a small subcentimeter nodule superior aspect right adrenal gland. This cannot be f urther characterized on this exam. 4. Post cholecystectomy changes. POS: SOL
--- NOTE | 2019-03-18 11:23 | PDOC.FPRHP ---
- History of Present Illness Chief Complaint: Chest pain/Abdominal pain History of Present Illness: Pt is a 63yo female w/ PMHx of HTN, HLD, and CVA who presents to the ED complaining of an acute worsening of her chronic abdominal pain and intermittent chest pain. Pt states abdominal pain got worse last night with no exacerbating factors. Denies any vomiting, diarrhea, or constipation but notes some mild nausea with it. She states she has had this for a long time and recently was seen in the clinic and they are setting up a colonoscopy as an outpt. Pt also noted intermittent sharp left sided chest pain that occurs without any exacerbating factors. She states she has had this intermittent chest pain for years and has had a cardiac workup previously. Her last echo was last year but can't remember when her last stress was. She states the pain never lasts more than a minute and goes away before she can even take her nitro. Denies any SOB, dizziness, radiating pain, or diaphoresis with this pain. Pt states she sees Dr. Olea, cardiology. Last visit was about 4 months ago and she is due to see him again in about 1 month. ED Course: Initial trop negative. Elevated D-dimer, CTA without PE and no acute findings. CT abdomen/pelvis no acute intra-abdominal findings, diverticulosis noted. - Allergies/Adverse Reactions Allergies Allergy/AdvReac Type Severity Reaction Status Date / Time pioglitazone HCl [From Actos] Allergy Verified 03/18/19 14:27 canagliflozin [From Invokana] AdvReac Verified 03/18/19 14:27 dicyclomine AdvReac Verified 03/18/19 14:27 ibuprofen AdvReac Verified 03/18/19 14:27 insulin aspart AdvReac Verified 03/18/19 14:27 [From Novolog U-100 Insulin aspart] liraglutide [From Victoza] AdvReac Verified 03/18/19 14:27 - Home Medications Medication Instructions Recorded Confirmed Type Atorvastatin Calcium [Lipitor] 40 mg PO HS 03/03/13 03/18/19 History Gabapentin [Neurontin] 600 mg PO TID 03/03/13 03/18/19 History Lansoprazole 30 mg PO BID 03/03/13 03/18/19 History Aspirin [Ecotrin Low Strength] 81 mg PO DAILY 07/24/16 03/18/19 History Lisinopril 20 mg PO BID 07/24/16 03/18/19 History Spironolact/Hydrochlorothiazid 1 tab PO DAILY 10/08/16 03/18/19 History [Aldactazide] Metoclopramide HCl [Reglan] 10 mg PO BID PRN 11/25/16 03/18/19 History Metoprolol Succinate 50 mg PO DAILY 09/04/17 03/18/19 History Nitroglycerin [Nitrostat] 0.4 mg SL Q5MIN PRN 02/18/18 03/18/19 History Dapagliflozin Propanediol [Farxiga] 10 mg PO QAM 01/05/19 03/18/19 History Docusate [Colace] 100 mg PO BID 01/05/19 03/18/19 History FLUoxetine HCl [Prozac] 20 mg PO DAILY 01/05/19 03/18/19 History Oxybutynin Chloride [Oxybutynin 10 mg PO DAILY 01/05/19 03/18/19 History Chloride ER] Baclofen 10 mg PO PRN 03/18/19 History Insulin Aspart Prot/Insuln Asp 60 unit SQ BID 03/18/19 03/18/19 History [Novolog Mix 70-30 Flexpen Syrn] Lidocaine [Lidocaine Pain Relief] 1 each TP PRN 03/18/19 History Topiramate 25 mg PO BID PRN 03/18/19 03/18/19 History - History PMHx: HTN, HLD, CVA, CAD, chronic back pain, DM II, Hep C PSHx: Back surgery, cholecystectomy, hysterectomy, x2, bilateral knee replacement FHx: Non contributory Social: No tobacco, alcohol, or drug use - Review of Systems General: denies: fever/chills, weight/appetite/sleep changes Eyes: denies: vision changes ENT: denies: nasal congestion, rhinorrhea Respiratory: denies: cough, congestion, shortness of breath Cardiovascular: reports: chest pain. denies: palpitation, edema, paroxysmal nocturnal dyspnea Gastrointestinal: reports: nausea, abdominal pain. denies: vomiting, diarrhea, constipation, GI bleeding Genitourinary: denies: dysuria, polyuria, discharge Skin: denies: rashes, lesions Musculoskeletal: reports: pain (chronic back pain). denies: swelling Neurological: denies: numbness, weakness Psychological: denies: anxiety, depression - Vital signs BP: 159/93, Pulse: 66, Resp: 18, Temp: 98.4 (Oral), Pain: 5, O2 sat: 97 on Room Air - Physical Exam Constitutional: NAD, awake, alert and oriented, well developed -Constitutional: Morbidly obese HEENT: normocephalic and atraumatic, PERRLA Neck: supple, FROM, no JVD Chest: no-tender to palpation, no lesions Heart: RRR, normal S1/S2, no murmurs/rubs/gallops, pulses present, no edema Lungs: CTAB, no respiratory distress, no wheezing -Lungs: Poor excursion Abdomen: soft, bowel sounds present, no masses/distention -Abdomen: pt noted some mild pain with deep palpation diffusely, repeated deep palpation with stethescope and pt did not appear to be in pain and did not complain of tenderness Musculoskeletal: normal structure, normal tone Neurological: no focal deficit, CN II-XII intact Skin: no rash/lesions, good turgor, capillary refill <2 seconds Heme/Lymphatic: no unusual bruising or bleeding Psychiatric: normal mood and affect, good judgment and insight, intact recent and remote memory FMR H&P: Results - Labs Result Diagrams: 03/18/19 08:25 03/18/19 08:25 Lab results: WBC 5.5 thou/uL (4.8-10.8) 03/18/19 08:25 Hgb 13.7 g/dL (12.0-16.0) 03/18/19 08:25 Hct 41.4 % (36.0-47.0) 03/18/19 08:25 MCV 91.1 fL (78.0-98.0) 03/18/19 08:25 Plt Count 245 thou/uL (130-400) 03/18/19 08:25 Neutrophils % 42.9 % (42.0-75.0) 03/18/19 08:25 Sodium 138 mmol/L (136-145) 03/18/19 08:25 Potassium 4.1 mmol/L (3.5-5.1) 03/18/19 08:25 Chloride 106 mmol/L (98-107) 03/18/19 08:25 Carbon Dioxide 24 mmol/L (23-31) 03/18/19 08:25 BUN 21 mg/dL (9.8-20.1) H 03/18/19 08:25 Creatinine 0.96 mg/dL (0.6-1.1) 03/18/19 08:25 Glucose 170 mg/dL (80-115) H 03/18/19 08:25 Calcium 10.3 mg/dL (7.8-10.44) 03/18/19 08:25 Total Bilirubin 0.3 mg/dL (0.2-1.2) 03/18/19 08:25 AST 23 U/L (5-34) 03/18/19 08:25 ALT 33 U/L (8-55) 03/18/19 08:25 Alkaline Phosphatase 155 U/L (40-150) H 03/18/19 08:25 Creatine Kinase 173 U/L (29-168) H 03/18/19 08:25 Serum Total Protein 8.6 g/dL (6.0-8.3) H 03/18/19 08:25 Albumin 4.2 g/dL (3.4-4.8) 03/18/19 08:25 Lipase 14 U/L (8-78) 03/18/19 08:25 Urine Ketones Negative mg/dL (Negative) 03/18/19 09:06 Urine Blood Negative (Negative) 03/18/19 09:06 Urine Nitrite Negative (Negative) 03/18/19 09:06 Ur Leukocyte Esterase Negative (Negative) 03/18/19 09:06 - Radiology Interpretation CT scan - abdomen Status: report reviewed by me CT scan - chest Status: report reviewed by ut FMR H&P: A/P - Problem List (1) Atypical chest pain Current Visit: No Status: Acute Code(s): R07.89 - OTHER CHEST PAIN (2) Abdominal pain Current Visit: No Status: Acute Code(s): R10.9 - UNSPECIFIED ABDOMINAL PAIN (3) Back pain, chronic Current Visit: No Status: Chronic Code(s): M54.9 - DORSALGIA, UNSPECIFIED; G89.29 - OTHER CHRONIC PAIN (4) Coronary artery disease Current Visit: No Status: Chronic Code(s): I25.10 - ATHSCL HEART DISEASE OF [place] CORONARY ARTERY W/O ANG PCTRS Qualifiers: [place] vs. transplanted heart: [place] heart (5) History of CVA (cerebrovascular accident) Current Visit: No Status: Chronic Code(s): Z86.73 - PRSNL HX OF TIA (TIA), AND CEREB INFRC W/O RESID DEFICITS (6) Hyperlipidemia Current Visit: No Status: Chronic Code(s): E78.5 - HYPERLIPIDEMIA, UNSPECIFIED (7) Hypertension Current Visit: No Status: Chronic Code(s): I10 - ESSENTIAL (PRIMARY) HYPERTENSION (8) Morbid obesity Current Visit: No Status: Chronic Code(s): E66.01 - MORBID (SEVERE) OBESITY DUE TO EXCESS CALORIES (9) Hepatitis C Current Visit: No Status: Chronic Code(s): B19.20 - UNSPECIFIED VIRAL HEPATITIS C WITHOUT HEPATIC COMA - Plan Atypical chest pain extensive anginal history and atypical chest pain; given nitro and morphine for pain in ED - Heart score of 5 - D-dimer elevated in ED, CTA negative for PE or acute findings - Troponin negative x2, will continue to trend - Most recent echo 02/19/18 - EF: 40-45% w/ mild diastolic dysfunction - Stress test and echo ordered - HgA1c, FLP, TSH, Mg, Ph to risk stratify and identify secondary causes Abdominal pain Exacerbation of pt's chronic abdominal pain - CT of abdomen was negative for any acute intra-abdominal findings, diverticulosis - Colonoscopy has been ordered outpt - Being followed by GI, pt notes MATT, note review showed this was likely a clinical diagnosis based on pt's labs and sx - No associated vomiting, diarrhea, constipation; does note some mild intermittent nausea DM II - Restart home humalin and depagliflozin - Start mild SS - Hypoglycemic protocol GUTIERREZ - Reported per patient - She had elevated liver enzymes in the past, but WNL today - Will check PT/PTT/INR HTN - Restart home meds: lisinopril and aldactazide - Holding metoprolol for stress test tomorrow HLD - Continue atorvastatin - FLP in am Condition: Stable VTE: Lovenox and SCD Diet: HH and Diabetic Fluids: None Code Status: Full Dispo: Admit to tele obs for cardiac r/o, expected LOS < 48 hr FMR H&P: Upper Level - Pertinent history 63 year old female with PMH significant for OA, chronic pain, HTN, HLD, DM type II uncontrolled, Hx CVA, CAD presents with abdominal pain. Patient reports chronic abdominal pain which has reportedly worsened over the last day. The abdominal pain is diffuse, but worse in suprapubic/lower abdominal region. Patient also reports chest pain in substernal region. She states it came on for 45 seconds and resolved without any intervention. She has nitro at home and states she did not have to take the nitro. Patient reports that this chest pain has been intermittent for several years. She sees Dr. Haley and last saw him 3-4 months ago. She reports that she is due to see him again in a month. Patient reports last cath was a few years ago. There was no vessels amenable to stents. Patient has had several abdominal surgeries including hysterectomy, cholecystectomy, oophorectomy. Patient denies constipation or diarrhea. She endorses remote history of trichomonas with no history of chlamydia or gonorrhea. Patient reportedly has GUTIERREZ for which she sees liver specialist. Liver specialist notes from our clinic shows recently normal AST/ALT with "possible" GUTIERREZ. She has reportedly had chronic abdominal pain that has been worked up extensively to include MRI abdomen which was unremarkable. She reports her hysterectomy was for "painful intercourse", but could not provide another reason. She denies any history of cancer. - Pertinent findings General: Alert and oriented x3. Moans on occasion, but easily distracted when talked to. HEENT: No pharyngeal erythema, EOMI Card: RRR, No murmurs audible Resp: CTA b/l, no acute respiratory distress Abdomen: Soft, mildly tender to palpation throughout, no evidence of ascites Ext: No notable peripheral edema - Plan Date/Time: 03/18/19 1122 I, Alondra Moss, have evaluated this patient and agree with findings/plan as outlined by video editing intern resident. Pertinent changes/additions are listed here. 1. Stable angina - Patient with extensive anginal history and atypical chest pain - Nitro PRN - Patient given morphine in ED - Heart score 5 - Cardiac cath several years ago, no stents at that time - Echo 2018 EF 40-45%, mild diastolic dysfunction - NPO @ midnight - Hold BB for stress - Stress test in AM - HgA1c, FLP, TSH, Mg, P - Trend troponin 2. DM type II uncontrolled - No recent labs - Will obtain HgA1c - Continue home medication regimen, including insulin - Hyperglycemia protocol - ACHS accuchecks 3. HLD - Continue home medications 4. Chronic pain - Patient with chronic pain, including abdominal pain which has been worked up extensively - Previous MRI of abdomen/pelvis unremarkable - CT abdomen/pelvis in ED unremarkable - Continue home medications - AST/ALT WNL - Patient allergic to many medications, making her regimen more difficult - Consider reglan for gastroperesis given uncontrolled DM type II - UA negative 5. GERD - Continue home medications 6. Hepatitis C - Uncertain if patient has been treated 7. HTN - Continue home medications 8 Hx CVA - DVT ppx 9. GUTIERREZ - Reported per patient - She had elevated liver enzymes in the past, but WNL today - Will check PT/PTT/INR 10. HFpEF (40-45%) - Monitor fluid status - Strict I&O's - Daily weights - Continue home medications 11. Elevated D-dimer - CTA negative DVT PPX: Lovenox Code status: Full Dispo: Obs on telemetry. Probable d/c home tomorrow pending stress test. Addendum - Attending - Attending Attestation Date/Time: 03/18/192037 I personally evaluated the patient and discussed the management with Dr. Nichols/ Isa. I agree with the History, Examination, Assessment and Plan documented above with any addition or exceptions noted below. Patient is 63 -year-old female with history of hypertension, hyperlipidemia, coronary artery disease who presents with chest pain and abdominal pain. Patient reports chronic chest pain that lasts approximately 45 seconds and is not associated with exertion. She reports this is long-standing. Her biggest complaint today is abdominal pain, which she also reports has been ongoing for months and has been evaluated by Lauren as well as a liver specialist. Patient has a history of nonalcoholic hepatosteotosis. She reports this abdominal pain is constant and unremitting. She reports that she has diffuse pain that is no better or worse with PO intake, or bowel movements. Reports negative work up in the past. On arrival patient had CT scan of the chest which is negative for pulmonary embolism, and CT of the abdomen and pelvis which is negative for acute process. Patient also had negative troponins. Patient will be observed on telemetry overnight. Chest pain rule out with enzymes and plan for stress testing tomorrow as it is been several years since her previous stress test. Her abdominal pain has been extensively worked up in the outpatient setting and it currently does not appear to be anything acute that needs further management in the hospital. She can continue this workup in the outpatient setting with her G.I. specialist. Anticipate discharge tomorrow after stress testing. Ld Brooks MD
[2019-03-18] MEDS ORDERED: Aspirin Chewable 81 MG TAB ONE (11:34)
[2019-03-18 12:19] LABS: Troponin I Less than 0.010 ng/mL (< 0.028)
[2019-03-18] MEDS ORDERED: ADENOSINE 60 MG/20 ML VIAL ONE (13:53)
[2019-03-18] MEDS ORDERED: Nitroglycerin 0.4 MG TAB (25 Tab Bottle) PO PRN (14:08)
[2019-03-18] MEDS ORDERED: Dextrose 5% in Water 1,000 ML IV PRN (14:08)
[2019-03-18] MEDS ORDERED: HumaLOG 300 UNITS/3 ML VIAL SC PRN ×2 (14:08)
[2019-03-18] MEDS ORDERED: Dextrose 50% Abboject 50 ML SYRINGE SLOW IVP PRN (14:08)
[2019-03-18 14:16] VITALS: BMI 39.5
[2019-03-18 15:06] LABS: Hemoglobin A1c 9.8 % (4.0-6.0)
[2019-03-18 15:12] LABS: Magnesium 2.1 mg/dL (1.6-2.6)
[2019-03-18] MEDS ORDERED: Metoclopramide HCl 10 MG TAB PO PRN (15:47)
[2019-03-18] MEDS ORDERED: ISOVUE-370 76%-LOCM 1 ML ONE (16:13)
[2019-03-18 18:32] LABS: INR-International Normal Ratio 1.1; PTT 30.9 SEC (22.9-36.1); Prothrombin Time 13.9 SEC (12.0-14.7)
[2019-03-18 18:44] LABS: Troponin I Less than 0.010 ng/mL (< 0.028)
[2019-03-18] MEDS ORDERED: Atorvastatin Calcium 40 MG TAB PO SCH (21:00)
[2019-03-18] MEDS: Docusate 100 MG CAP PO SCH (21:16)
[2019-03-18] MEDS: Gabapentin 300 MG CAP PO SCH (21:16)
[2019-03-18] MEDS: HumuLIN 70/30 (300 UNITS/3 ML VIAL) SC SCH (21:17)
[2019-03-18] MEDS: Lisinopril 20 MG TAB PO SCH (21:17)
[2019-03-18] MEDS ORDERED: traMADol HCl 50 MG TAB PO SCH (23:59)
--- NOTE | 2019-03-19 05:36 | PDOC.FM ---
- Subjective Subjective: No events overnight. Pt denies any chest pain, abdominal pain, N/V, or shortness of breath at this time. Had active cardiac stress yesterday without complications. - Objective Vital Signs & Weight: Vital Signs (12 hours) Temp Pulse Resp BP BP Pulse Ox 03/19/19 04:32 62 18 115/72 93 L 03/18/19 23:32 98.5 F 66 20 133/74 95 03/18/19 21:17 147/74 H 03/18/19 19:49 98.2 F 73 16 147/74 H 95 Weight Weight 104.553 kg I&O: 03/17/19 03/18/19 03/19/19 06:59 06:59 06:59 Intake Total 200 Output Total 950 Balance -750 Result Diagrams: 03/18/19 08:25 03/19/19 05:58 Phys Exam - Physical Examination Constitutional: NAD Morbidly obese HEENT: PERRLA, moist MMs Neck: no JVD, full ROM Respiratory: no wheezing, no rales, no rhonchi, clear to auscultation bilateral Cardiovascular: RRR, no significant murmur, no rub Gastrointestinal: soft, non-tender, no distention, positive bowel sounds Musculoskeletal: no edema, pulses present Neurological: non-focal, moves all 4 limbs Psychiatric: normal affect, A&O x 3 Skin: no rash, cap refill <2 seconds Dx/Plan (1) Atypical chest pain Code(s): R07.89 - OTHER CHEST PAIN Status: Acute (2) Abdominal pain Code(s): R10.9 - UNSPECIFIED ABDOMINAL PAIN Status: Acute (3) Back pain, chronic Code(s): M54.9 - DORSALGIA, UNSPECIFIED; G89.29 - OTHER CHRONIC PAIN Status: Chronic (4) Coronary artery disease Code(s): I25.10 - ATHSCL HEART DISEASE OF [place] CORONARY ARTERY W/O ANG PCTRS Status: Chronic Qualifiers: [place] vs. transplanted heart: [place] heart (5) History of CVA (cerebrovascular accident) Code(s): Z86.73 - PRSNL HX OF TIA (TIA), AND CEREB INFRC W/O RESID DEFICITS Status: Chronic (6) Hyperlipidemia Code(s): E78.5 - HYPERLIPIDEMIA, UNSPECIFIED Status: Chronic (7) Hypertension Code(s): I10 - ESSENTIAL (PRIMARY) HYPERTENSION Status: Chronic (8) Morbid obesity Code(s): E66.01 - MORBID (SEVERE) OBESITY DUE TO EXCESS CALORIES Status: Chronic (9) Hepatitis C Code(s): B19.20 - UNSPECIFIED VIRAL HEPATITIS C WITHOUT HEPATIC COMA Status: Chronic - Plan Plan: Atypical chest pain extensive anginal history and atypical chest pain; given nitro and morphine for pain in ED - Heart score of 5 - D-dimer elevated in ED, CTA negative for PE or acute findings - Troponin negative x2, will continue to trend - Most recent echo 02/19/18 - EF: 40-45% w/ mild diastolic dysfunction - Cannot recall the last time she had a stress, quite certain it was over 3 years ago - Stress test and echo ordered, active stress test and echo yesterday: results pending, no complications; resting stress today - TSH, Mg, and Ph - WNL Abdominal pain Exacerbation of pt's chronic abdominal pain - CT of abdomen was negative for any acute intra-abdominal findings, diverticulosis - Colonoscopy has been ordered outpt - Being followed by GI, pt notes GUTIERREZ, note review showed this was likely a clinical diagnosis based on pt's labs and sx - No associated vomiting, diarrhea, constipation; does note some mild intermittent nausea - No signs of liver function abnormality, pt is s/p cholecystectomy a number of years ago DM II - Restart home humalin and depagliflozin - Start mild SS - Hypoglycemic protocol - HbA1c 9.8 GUTIERREZ - Reported per patient - She had elevated liver enzymes in the past, but WNL today - Check PT/PTT/INR - nml HTN - Restart home meds: lisinopril and aldactazide - 115/72 this am - Holding metoprolol for stress test HLD - Continue atorvastatin - FLP: all WNL Condition: Stable VTE: Lovenox and SCD Diet: HH and Diabetic Fluids: None Code Status: Full Dispo: Pt doing well, asymptomatic at this time. If echo and stress comeback normal or without need for intervention she can be D/C later today. Addendum - Attending - Attending Attestation Date/Time: 03/19/19 7226 I personally evaluated the patient and discussed the management with Dr. Nichols. I agree with the History, Examination, Assessment and Plan documented above with any addition or exceptions noted below. Patient stable. Here for chronic chest pain and abdominal pain with reassuring CT scans and extensive outpatient workup. She will go for completion of stress test today and likely d/c with outpatient follow up if no need for further intervention.
[2019-03-19 06:44] LABS: ALT (SGPT) 23 U/L (8-55); AST (SGOT) 19 U/L (5-34); Albumin 3.7 g/dL (3.4-4.8); Alkaline Phosphatase 127 U/L (40-150); Anion Gap 12 mmol/L (10-20); BUN (Urea Nitrogen) 20 mg/dL (9.8-20.1); Bilirubin, Total 0.3 mg/dL (0.2-1.2); Calc. Creatinine Clearance 100 mL/min (70-130); Carbon Dioxide 25 mmol/L (23-31); Cardiac Risk 3.8 (Less than 4.5); Chloride 105 mmol/L (98-107); Cholesterol 99 mg/dl (< 200 Desired); Estimated GFR-MDRD 73; Globulin 3.8 g/dL (2.4-3.5); Glucose 156 mg/dL (80-115); HDL Cholesterol 26 mg/dL (>60 Neg Risk); LDL Cholesterol, Calculated 55 mg/dL; Potassium 4.1 mmol/L (3.5-5.1); Protein, Total 7.5 g/dL (6.0-8.3); Sodium 138 mmol/L (136-145); Triglycerides 88 mg/dL (Less than 150)
[2019-03-19] MEDS: HumuLIN 70/30 (300 UNITS/3 ML VIAL) SC SCH (07:58)
[2019-03-19] MEDS ORDERED: Spironolactone 25 MG TAB PO SCH (09:00)
[2019-03-19] MEDS ORDERED: FLUoxetine HCl 20 MG CAP PO SCH (09:00)
[2019-03-19] MEDS ORDERED: Oxybutynin ER 5 MG TAB PO SCH (09:00)
[2019-03-19] MEDS ORDERED: Aspirin 81 mg Enteric Coated Tablet PO SCH (09:00)
[2019-03-19] MEDS ORDERED: (Dapagliflozin Propanediol [Farxiga] 10 MG) PO SCH (09:00)
[2019-03-19] MEDS ORDERED: Non-Formulary Item 1 EACH (Spironolact/Hydrochlorothiazid [Aldactazide] 1 TAB) PO SCH (09:00)
[2019-03-19] MEDS ORDERED: Prevnar 13-Val Conj/PF 0.5 ML SYRINGE IM ONE (09:00)
[2019-03-19] MEDS ORDERED: Enoxaparin Sodium 40 MG/0.4 ML SYRINGE SC SCH (09:00)
[2019-03-19] MEDS ORDERED: Hydrochlorothiazide 25 MG TAB PO SCH (09:00)
[2019-03-19] MEDS: Gabapentin 300 MG CAP PO SCH (09:36)
[2019-03-19] MEDS: Docusate 100 MG CAP PO SCH (09:37)
[2019-03-19] MEDS: Lisinopril 20 MG TAB PO SCH (09:37)
--- NOTE | 2019-03-19 11:27 | NM ---
EXAM: Nuclear medicine cardiac perfusion examination with ejection fraction HISTORY: Chest pain TECHNIQUE: Rest images: 31.2 mCi technetium 99m sestamibi Stress images: 27.0 mCi of technetium 9M sestamibi; Adenosine COMPARISON: None FINDINGS: Tomographic images: No fixed or reversible perfusion defects. Gated images: Normal wall motion and ejection fraction of 60%. EDV: 91 mL LHR: 0.6 TID: 1.0 IMPRESSION: No evidence of ischemia
[2019-03-19 12:16] VITALS: BP 137/83; TEMP 98.1
--- NOTE | 2019-03-21 04:34 | DIS ---
DATE OF ADMISSION: 03/18/2019 DATE OF DISCHARGE: 03/19/2019 RESIDENT: Brandon Nichols DO ADMITTING ATTENDING: Berry Brooks MD DISCHARGE ATTENDING: Berry Brooks MD. CONSULTS: None. PROCEDURES: None. PRIMARY DIAGNOSES: Atypical chest pain, abdominal pain. SECONDARY DIAGNOSES: Hypertension, hyperlipidemia, coronary artery disease. DISCHARGE MEDICATIONS: 1. Ecotrin 81 mg daily. 2. Lipitor 40 mg at bedtime. 3. Baclofen 10 mg p.r.n. 4. Dapagliflozin 10 mg p.o. q.a.m. 5. Colace 100 mg p.o. b.i.d. 6. Prozac 20 mg daily. 7. Neurontin 600 mg p.o. t.i.d. 8. Insulin aspart 16 units subcu b.i.d. 9. Lansoprazole 30 mg p.o. b.i.d. 10. Lidocaine pain release patch one patch topically p.r.n. 11. Lisinopril 20 mg p.o. b.i.d. 12. Reglan 10 mg p.o. b.i.d. p.r.n. 13. Metoprolol succinate 50 mg p.o. daily. 14. Nitrostat 0.4 mg sublingual q.5 minutes p.r.n. 15. Oxybutynin chloride 10 mg p.o. daily. 16. Spironolactone/hydrochlorothiazide 25 mg/25 mg one tablet p.o. daily. 17. Topiramate 25 mg p.o. b.i.d. DISCONTINUED MEDICATIONS: None. HISTORY OF PRESENT ILLNESS AND HOSPITAL COURSE: The patient is a 63-year-old female with past medical history of hypertension, hyperlipidemia, and previous CVA, who presents to the ED with complaint of acute worsening of her chronic abdominal pain and intermittent chest pain. Abdominal pain got worse last night, but the patient denied any exacerbating factors or any associated nausea, vomiting, diarrhea, or constipation. The patient states that her chest pain has been going on for a long time, occurs intermittently with no exacerbating factors. States that it is sharp, substernal/epigastric and lasted more than a minute. The workup included initial troponin that was negative. An elevated D-dimer with followup CTA showing no pulmonary embolism or acute intrathoracic findings. CT of abdomen and pelvis was performed with no acute intraabdominal findings, diverticulosis was noted. The patient stated that her last echo was over a year ago, but she could not recall when her last stress test was. She was subsequently admitted for a cardiac rule out. Troponins were trended and were negative x3. Echocardiogram was performed, which showed an EF of 55% to 60% with 1/3 diastolic dysfunction and mild mitral, tricuspid, and pulmonic regurgitation. Stress test was performed, which showed no evidence of ischemia. On the day of discharge, the patient was asymptomatic and denied any continuation or recurrence of her chest pain or abdominal pain. The patient has an outpatient colonoscopy scheduled to assess for her chronic abdominal pain. 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 Olea. Return precautions were discussed with the patient and she expressed understanding. DISPOSITION: Stable. DISCHARGE INSTRUCTIONS: 1. Location: Home. 2. Diet: Heart healthy and diabetic. 3. Activity: As tolerated. 4. Followup: Follow up PCP, Dr. Deng Rain, within 3 days and Cardiology as scheduled. Job ID: [id number]
--- NOTE | 2019-03-25 14:34 | EKG ---
Test Reason : ABDPAIN Blood Pressure : / mmHG Vent. Rate : 061 BPM Atrial Rate : 061 BPM P-R Int : 176 ms QRS Dur : 084 ms QT Int : 444 ms P-R-T Axes : 017 -04 055 degrees QTc Int : 446 ms Normal sinus rhythm with sinus arrhythmia Minimal voltage criteria for LVH, may be normal variant Nonspecific T wave abnormality Abnormal ECG Confirmed by PAPITO Meneses, PHUONG ([id number]), slot editor NIC CORCORAN ([id number]) on 03/25/2019 2:34:23 PM Referred By: CONCEPCION Confirmed By:PHUONG COBOS M.D.
== END 2019-03-19 12:55 | disposition home or self-care (01) ==
LOC: ERS 08:10 → 2SW 13:57
PROVIDERS: ADMIT Student in an Organized Health Care Education/Training Program; ATTEND Student in an Organized Health Care Education/Training Program
DX: R07.2 Precordial pain (principal); R10.13 Epigastric pain; I11.0 Hypertensive heart disease with heart failure; I50.9 Heart failure, unspecified; E78.5 Hyperlipidemia, unspecified; I25.10 Atherosclerotic heart disease of native coronary artery without angina pectoris; E11.9 Type 2 diabetes mellitus without complications; K75.81 Nonalcoholic steatohepatitis (NASH); M54.9 Dorsalgia, unspecified; G89.29 Other chronic pain; R79.1 Abnormal coagulation profile; E66.01 Morbid (severe) obesity due to excess calories; B19.20 Unspecified viral hepatitis C without hepatic coma; M19.90 Unspecified osteoarthritis, unspecified site; K21.9 Gastro-esophageal reflux disease without esophagitis; K57.30 Diverticulosis of large intestine without perforation or abscess without bleeding; Z68.39 Body mass index [BMI] 39.0-39.9, adult; Z86.73 Personal history of transient ischemic attack (TIA), and cerebral infarction without residual deficits; Z88.8 Allergy status to other drugs, medicaments and biological substances; Z88.6 Allergy status to analgesic agent; Z79.82 Long term (current) use of aspirin; Z79.4 Long term (current) use of insulin; Z79.899 Other long term (current) drug therapy
CPT/HCPCS: 71045; 71275; 74177; 78452; 80053; 80061; 81003; 82550; 82962 ×2; 83036; 83690; 83735; 84100; 84484 ×2; 85379; 85610; 85730; 90670; 93005; 93017; 93306; 93971; 94760 ×2; 96374; 96375; 99285; A9500; G0009; G0378 ×2; 36415; 36416; 84443; 85025; 90471; J0153; J1815; J2270; J2405; Q9966

== ENCOUNTER 2019-06-05 12:21 | Outpatient (CLI) | payer MEDICARE, MEDICAID ==
--- NOTE | 2019-06-05 15:25 | RAD ---
Esophagram HISTORY: Dysphagia. FINDINGS: Air contrast and single column barium evaluation shows a mildly and diffusely patulous esop hagus. Markedly diminished primary and secondary peristalsis. Prominent nonpropulsive tertiary type contractions. Poor motility. Marked delay in clearance. A 12 mm barium tablet traversed the esophagus without difficulty when patient was upright. Large amou nt of reflux of contrast throughout the esophagus. IMPRESSION: Severe presbyesophagus with large amount of reflux. No evidence of obstruction.
== END 2019-06-05 12:22 | disposition home or self-care (01) ==
LOC: RAD 12:21
PROVIDERS: ATTEND Physician Assistant Medical
DX: R13.10 Dysphagia, unspecified (principal); K55.9 Vascular disorder of intestine, unspecified; R10.9 Unspecified abdominal pain; E66.01 Morbid (severe) obesity due to excess calories; K22.8 Other specified diseases of esophagus; K21.9 Gastro-esophageal reflux disease without esophagitis; Z86.010 Personal history of colon polyps
CPT/HCPCS: 74220

== ENCOUNTER 2019-06-15 11:37 | Day surgery (SDC) | payer MEDICARE, MEDICAID ==
[2019-06-14 12:06] VITALS: BMI 33.6
[~2019-06-15 11:37] MED LIST changes: -ISOVUE-370 76%-LOCM 1 ML ONE; +Lidocaine 1% PF 5 ML VIAL ONE; +PROPOFOL 200 MG/20 ML VIAL ONE
--- NOTE | 2019-06-15 17:41 | OP ---
DATE OF PROCEDURE: 06/15/2019 PROCEDURE PERFORMED: Colonoscopy with snare polypectomy and biopsy. PREPROCEDURE DIAGNOSIS: Colon screening. POSTPROCEDURE DIAGNOSES: 1. Exam to cecum; good bowel preparation. 2. Two diminutive polyps in the ascending colon, one removed by cold snare technique and the second removed by cold biopsy forceps. 3. Scattered diverticula in the left colon. 4. Small internal hemorrhoids. 5. Otherwise, normal colonoscopy. DESCRIPTION OF PROCEDURE: Written informed consent was obtained. Upon completion of the EGD, the patient was repositioned for the colonoscopy. Total intravenous anesthesia was administered by Dr. Davonte Simms and associates. The patient was placed in the left lateral decubitus position. A digital rectal exam revealed moderate external hemorrhoid. A Pentax video colonoscope was inserted through the anal canal and advanced under direct visualization to the cecum. Position in the cecum was verified by clear identification of the appendiceal orifice and the ileocecal valve. The quality of the bowel preparation was good. Each colon segment was examined carefully as the colonoscope was slowly withdrawn from the cecum. Vascular pattern and haustral folds appeared normal. Occasional diverticular orifices were noted in the sigmoid colon, both small and large in size. None of the diverticula was bleeding or appeared infected. The severity was rated as mild. In the ascending colon, 2 diminutive polyps, one measuring 2 mm in size and the second one measuring 4 to 5 mm in size were removed. The larger polyp was excised with cold snare technique, and the smaller polyp was removed by cold biopsy forceps. Both polyps were retrieved for histology. No other synchronous polyps were identified. In the rectum, a retroflexed view demonstrated small internal hemorrhoids that were not actively bleeding. The colon was decompressed as the colonoscope was completely removed from the patient. She was transferred to the Day Stay surgery area for postprocedure monitoring. There were no immediate complications. RECOMMENDATIONS: 1. Await pathology results. 2. Have the patient call me in 1 week for pathology results. 3. Repeat colonoscopy in 5 years. 4. Resume previous medications. 5. High-fiber diet. 6. Follow up in GI Clinic as per my EGD report. Job ID: [id number]
--- NOTE | 2019-06-15 19:44 | OP ---
DATE OF PROCEDURE: 06/15/2019 PROCEDURE PERFORMED: Esophagogastroduodenoscopy with esophageal dilation using bougie and biopsy. PREPROCEDURE DIAGNOSES: 1. Gastroesophageal reflux disease. 2. Dysphagia. 3. Abnormal barium esophagram. POSTPROCEDURE DIAGNOSES: 1. Exam to second portion of duodenum. 2. 1 cm sliding hiatal hernia. 3. Grade B distal esophagitis, biopsied. 4. Normal exam for dysphagia, esophagus dilated successfully with a 54-[place] bougie. 5. Normal stomach. 6. Normal duodenum. DESCRIPTION OF PROCEDURE: Written informed consent was obtained. The patient was brought to the endoscopy suite. Total intravenous anesthesia was administered by [facility] and [facility]. The patient was placed in the left lateral decubitus position. A bite block was inserted into the mouth. A Pentax video diagnostic gastroscope was introduced into the oral cavity, and the esophagus was carefully intubated. The gastroscope was advanced under direct visualization to the second portion of the duodenum. Endoscopic findings revealed a small sliding 1 cm hiatal hernia. In the distal esophagus, grade B esophagitis was identified with no evidence of active bleeding. Biopsies were obtained for histology after the dilation was performed. The esophageal lumen appeared patent without evidence of stenosis or stricture. A 54-[place] bougie was passed easily across the esophagus with minimal to no resistance. Postdilation, the gastroscope was reintroduced, and the esophagus was inspected. There was no evidence of esophageal bleeding, tear, or perforation. Examination of the stomach including a retroflexed view of the cardia and fundus was unremarkable. There was mild diffuse nonspecific erythema, but no ulceration or active erosions. The duodenum from the bulb to the second portion also appeared normal. The stomach was decompressed as the endoscope was completely removed from the patient. She was repositioned for the colonoscopy. There were no immediate complications. RECOMMENDATIONS: 1. Await biopsy results. 2. Have the patient call me in 1 week for pathology results. 3. Continue lansoprazole 30 mg 1 to 2 times daily. 4. Chew food into small pieces before swallowing and have a beverage ready with each meal. 5. Follow up in GI Clinic in about 4 to 6 weeks with Lexi, our physician assistant editor. Job ID: [id number]
== END 2019-06-15 15:30 | disposition home or self-care (01) ==
LOC: SDC 11:37
PROVIDERS: ATTEND Internal Medicine Gastroenterology
PROC: 0D757ZZ Dilation of Esophagus, Via Natural or Artificial Opening (ICD-10-PCS; principal; 2019-06-15)
PROC: 0DB38ZX Excision of Lower Esophagus, Via Natural or Artificial Opening Endoscopic, Diagnostic (ICD-10-PCS; 2019-06-15)
PROC: 0DBK8ZX Excision of Ascending Colon, Via Natural or Artificial Opening Endoscopic, Diagnostic (ICD-10-PCS; 2019-06-15)
PROC: 0DBK8ZX Excision of Ascending Colon, Via Natural or Artificial Opening Endoscopic, Diagnostic (ICD-10-PCS; 2019-06-15)
DX: Z12.11 Encounter for screening for malignant neoplasm of colon (principal); D12.2 Benign neoplasm of ascending colon; K57.30 Diverticulosis of large intestine without perforation or abscess without bleeding; K64.8 Other hemorrhoids; K64.4 Residual hemorrhoidal skin tags; R13.10 Dysphagia, unspecified; K21.0 Gastro-esophageal reflux disease with esophagitis; K44.9 Diaphragmatic hernia without obstruction or gangrene; I25.10 Atherosclerotic heart disease of native coronary artery without angina pectoris; K55.9 Vascular disorder of intestine, unspecified; E66.01 Morbid (severe) obesity due to excess calories; Z68.33 Body mass index [BMI] 33.0-33.9, adult; Z86.010 Personal history of colon polyps; Z79.4 Long term (current) use of insulin; Z79.82 Long term (current) use of aspirin; Z79.899 Other long term (current) drug therapy; Z88.8 Allergy status to other drugs, medicaments and biological substances
CPT/HCPCS: 36416; 88305; 88312; 88313; J2001; J2704

== ENCOUNTER 2019-09-01 12:47 | Outpatient (CLI) | payer MEDICARE, MEDICAID ==
--- NOTE | 2019-09-01 15:46 | MMO ---
Bilateral MAMMO Bilat Screen [facility]. CLINICAL HISTORY: Patient is 64 years old and is seen for screening. The patient has no family history of breast cancer. The patient has no personal history of cancer. The patient has a history of right needle biopsy - benign - per pt had bx at [facility] an "no cancer" fou. VIEWS: The views performed were: bilateral craniocaudal with tomosynthesis and bilateral mediolateral oblique with tomosynthesis. FILMS COMPARED: The present examination has been compared to prior imaging studies performed at [facility] on 07/05/2017, 07/19/2018 and 12/09/2018. This study has been interpreted with the assistance of computer-aided detection. MAMMOGRAM FINDINGS: There are scattered fibroglandular densities. Finding 1: There is a biopsy clip seen in the right breast. Finding 2: There are benign appearing calcifications seen in both breasts. There are no suspicious masses, suspicious calcifications, or new areas of architectural distortion. IMPRESSION: THERE IS NO MAMMOGRAPHIC EVIDENCE OF MALIGNANCY. A ROUTINE FOLLOW-UP MAMMOGRAM IN 1 YEAR IS RECOMMENDED. THE RESULTS OF THIS EXAM WERE SENT TO THE PATIENT. ACR BI-RADS Category 2 - Benign finding MAMMOGRAPHY NOTE: 1. A negative mammogram report should not delay a biopsy if a dominant of clinically suspicious mass is present. 2. Approximately 10% to 15% of breast cancers are not detected by mammography. 3. Adenosis and dense breasts may obscure an underlying neoplasm. Reported by: PRANAY ARENAS MD Electonically Signed: [id number]
== END 2019-09-01 12:48 | disposition home or self-care (01) ==
LOC: BICMAMMO 12:47
PROVIDERS: ATTEND Family Medicine
DX: Z12.31 Encounter for screening mammogram for malignant neoplasm of breast (principal); Z91.89 Other specified personal risk factors, not elsewhere classified
CPT/HCPCS: 77063; 77067

== ENCOUNTER 2019-09-18 12:29 | Outpatient (CLI) | payer MEDICARE, MEDICAID ==
--- NOTE | 2019-09-18 13:27 | ULT ---
EXAM: Soft tissue ultrasound of the cheek TECHNIQUE: Multiplanar grayscale and color Doppler images were obtained and a soft tissue ultrasound of the right cheek. Images of the opposite side were also performed. HISTORY: Right cheek swelling FINDINGS: The parotid glands are enlarged bilaterally. In the right parotid gland, there are hypoecho ic regions measuring up to 1.3 cm in size which may represent mildly enlarged intraparotid lymph nodes. No definite fluid collection is appreciated. IMPRESSION: Enlarged parotid glands with possible mildly enlarged intraparotid lymph nodes on the rig ht.
--- NOTE | 2019-09-18 13:40 | ULT ---
BILATERAL CAROTID DUPLEX ULTRASOUND: HISTORY: Parotid swelling. Headache TECHNIQUE: Grayscale, color-flow and spectral Doppler ultrasound imaging of the extracranial carotid artery syst ems was performed bilaterally. FINDINGS: There is plaque formation on the right. The peak systolic velocity in the right ICA measures 83 cm/s with an end-diastolic velocity of 25 cm/ s and a systolic ratio of 0.89. The peak systolic velocity in the left ICA measures 73 cm/s with an end-diastolic velocity of 32 cm/s and a systolic ratio of 0.82. Flow in both vertebral arteries remains antegrade. IMPRESSION: No evidence of hemodynamically significant stenosis in either ICA.
== END 2019-09-18 12:30 | disposition home or self-care (01) ==
LOC: ULT 12:29
PROVIDERS: ATTEND Family Medicine
DX: K11.8 Other diseases of salivary glands (principal); I08.1 Rheumatic disorders of both mitral and tricuspid valves; K11.1 Hypertrophy of salivary gland
CPT/HCPCS: 76999; 93306; 93880

== ENCOUNTER 2019-09-22 10:03 | Outpatient (CLI) | payer MEDICARE, MEDICAID ==
[2019-09-22 11:55] LABS: Estimated GFR-MDRD - POC Greater than 90
--- NOTE | 2019-09-22 14:31 | MRI ---
MRI BRAIN WITH AND WITHOUT IV CONTRAST: HISTORY: Parotid swelling. FINDINGS: Comparison is made with exam of 02/19/2018. Multiple foci of T2 prolongation in the periventricular white matter are again seen, consistent with chronic small-vessel ischemic disease. No restricted diffusion is noted. The ventricular size is no rmal and the basilar cisterns are patent. No evidence of infarct, hemorrhage, mass, midline shift, o r abnormal extraaxial fluid collections is seen. No abnormal postcontrast enhancement is noted. IMPRESSION: 1. No evidence of acute intracranial process or mass. 2. Recommend CT scan of the neck with IV contrast to evaluate the parotid glands. POS: H
== END 2019-09-22 10:04 | disposition home or self-care (01) ==
LOC: BICMRI 10:03
PROVIDERS: ATTEND Family Medicine
DX: R22.1 Localized swelling, mass and lump, neck (principal)
CPT/HCPCS: 70553; 82565

== ENCOUNTER 2019-10-09 09:54 | Outpatient (CLI) | payer MEDICARE, MEDICAID ==
--- NOTE | 2019-10-12 09:10 | RAD ---
Modified barium swallow with speech therapist HISTORY: Unspecified dysphasia, feeding difficulties FINDINGS: Patient was evaluated in the upright lateral position with multiple consistencies given evaluated. No evidence for penetration or aspiration. The visualized cervical esophagus below the level of the UES appears unremarkable. For additional findings and recommendations please see speech therapy report.
== END 2019-10-09 09:55 | disposition home or self-care (01) ==
PROVIDERS: ATTEND Specialist
DX: I69.391 Dysphagia following cerebral infarction (principal); R13.14 Dysphagia, pharyngoesophageal phase; R63.3 Feeding difficulties
CPT/HCPCS: 74230

== ENCOUNTER 2019-10-11 10:56 | Outpatient (CLI) | payer MEDICARE, MEDICAID ==
[2019-10-11] MEDS ORDERED: Iopamidol-370 76% 500 ML 1 ML ONE (13:29)
--- NOTE | 2019-10-11 13:54 | CT ---
CT neck soft tissues with contrast: DATE: 10/11/2019 HISTORY: 64 year old female with "parotid swelling ICD-10: R 22.1" COMPARISON: No previous neck CTs. FINDINGS: Bilateral parotid glands are symmetrically normal in size. Normal, scattered small intraparotid lymph nodes. No intraglandular ductal ectasia of parotid glands. No sialolith identified. No ectasia of Stensen's ducts or Empire's ducts. Bilateral submandibular glands have mild symmetrical intraglandular ductal ectasia. No discrete mass. Patient's upper oropharyngeal airway is closed with motion artifact. It is presumed the patient was s wallowing during time of scan. Nonspecific appearance of the larynx. Atherosclerotic calcification of bilateral proximal internal carotid arteries. Medialized, tortuous courses of bilateral common carotid arteries and proximal internal carotid arter ies in retropharyngeal space. No other abnormality of retropharyngeal, parapharyngeal, posterior cervical, or process treater, spaces. S cattered shotty cervical lymph nodes. No abscess or other cystic lesion. IMPRESSION: 1. No abnormality of parotid glands identified. 2. Mild enlargement and intraglandular ductal ectasia, of bilateral submandibular glands
== END 2019-10-11 10:57 | disposition home or self-care (01) ==
LOC: BICCT 10:56
PROVIDERS: ATTEND Family Medicine
DX: K11.8 Other diseases of salivary glands (principal); K11.1 Hypertrophy of salivary gland
CPT/HCPCS: 70491; Q9967

== ENCOUNTER 2020-04-29 09:42 | Outpatient (CLI) | payer MEDICARE, MEDICAID ==
--- NOTE | 2020-04-29 15:06 | NM ---
NUCLEAR MEDICINE GASTRIC EMPTYING SCAN: DATE: 04/29/2020. HISTORY: A 65-year-old female with: Gastroesophageal reflux disease with esophagitis: K21.0. Abdominal pain, bloating, nausea. TECHNIQUE: 2 mCi Technetium 99m-sulfur colloid served in scrambled egg meal. Scintigraphic images of the abdomen obtained immediately, and at 30 minutes, 60 minutes, 2 hours, and 3 hours. Counts obtained over the stomach, and used to plot time-activity curves. FINDINGS: Percentage emptyin minutes: 12%. 60 minutes: 34%. 120 minutes: 68%. 185 minutes: 97%. Half-time of emptyin minutes. IMPRESSION: Negative. POS: AH
== END 2020-04-29 09:43 | disposition home or self-care (01) ==
LOC: NM 09:42
PROVIDERS: ATTEND Physician Assistant Medical
DX: K21.0 Gastro-esophageal reflux disease with esophagitis (principal); K58.9 Irritable bowel syndrome, unspecified; K76.0 Fatty (change of) liver, not elsewhere classified; R14.0 Abdominal distension (gaseous); E11.9 Type 2 diabetes mellitus without complications
CPT/HCPCS: 78264; A9541

== ENCOUNTER 2020-05-31 11:48 | Outpatient (CLI) | payer MEDICARE, MEDICAID ==
--- NOTE | 2020-05-31 14:37 | MRI ---
THORACIC SPINE MRI WITH AND WITHOUT CONTRAST: HISTORY: Worsening back pain for years. COMPARISON: None. FINDINGS: Appropriate T1 marrow signal intensity of the thoracic vertebra. Thoracic spine vertebral body height is maintained. No fracture. Straightening of normal thoracic alignment likely due to patient position. No significant STIR hyperintensity to suggest ligamentous injury or vertebral body edema. P ostcontrast images do not demonstrate any abnormal enhancement with regards to the vertebral bodies. No abnormal enhancement with regards to the thoracic cord. No cord expansion. No cord malacia . No abnormal T2 signal intensities in the thoracic cord. Visualized mediastinum, lung parenchyma, solid organs and paraspinal muscles have appropriate signal intensity. T8-T9: Disc desiccation without significant loss of disc space height. Disc herniation abuts the thec al sac. Mild central canal stenosis. T10-T11: Broad-based disc bulge with mild to moderate central canal stenosis. T11-T12: Broad-based disc bulge with mild central canal stenosis. T12-L1: Broad-based disc bulge with mild central canal stenosis. Throughout the thoracic spine, neural foramina are patent. IMPRESSION: 1. No fracture. 2. No significant central canal stenosis or significant neural foraminal narrowing. 3. No evidence of abnormal enhancement with regards to the thoracic cord. No cord malacia, cord expan [place]init[place] or abnormal T2 hyperintensity in the cord. Transcribed Date/Time: 05/31/2020 2:41 PM
--- NOTE | 2020-05-31 15:07 | MRI ---
MRI LUMBAR SPINE WITH AND WITHOUT CONTRAST: INDICATION: Lumbar radiculopathy. Prior lumbar surgery. COMPARISON: Comparison is made to MRI lumbar spine dated 09/15/2018. FINDINGS: Lumbar vertebrae maintain height and alignment. Vertebral body signal is preserved. There are degen erative changes at L1-2 with mild edema within these vertebrae which appear stable from the prior dante dy. This appears degenerative in nature. Degenerative disk changes are noted at L1-2 and L2-3. Postop changes at noted at L1-2 and L2-3. Postop changes at L4-5 and L5-S1 with interbody implants and partial fusion. T12-L1: Broad-based disk bulge flattens the thecal sac. This may abut the conus with mild central c anal stenosis. Findings are stable from prior exam. L1-2: Diffuse disk bulge with protrusion. There is mild superior and inferior extension of this bro ad-based protrusion. This flattens the thecal sac and is combined with facet hypertrophy. There is posterior laminectomy change. This does compress the thecal sac resulting in mild to moderate centra l canal stenosis which is unchanged from the prior exam. There is bilateral foraminal narrowing due to this diffuse disk bulge and facet hypertrophy. The findings appear stable. L2-3: Broad-based disk bulge flattens the thecal sac. Posterior laminectomy change. Mild central canal stenosis and bilateral foraminal stenosis which appear stable from prior exam. L3-4: Mild disk bulge. Moderate facet and ligamentous hypertrophy. Mild central canal stenosis. T he disk bulge is more pronounced to the left and there is asymmetric bulge/protrusion on the left whi ch does extend into the foramina and may contact the exiting left L3 nerve root. This is a stable fi nding from the prior exam. L4-5: Postop changes with interbody implant and partial fusion. Mild spurring at the disk space fla ttens the thecal sac. Facet hypertrophy. Mild central canal stenosis. Mild foraminal narrowing. L5-S1: Postop changes with interbody implant and fusion. No significant central canal stenosis. Mi ld bilateral foraminal narrowing. No abnormal enhancement identified on the postcontrast images. IMPRESSION: Degenerative and postoperative changes at multiple levels as described above as well as disk protrusi ons at T12-L1, L1-2, L2-3, and L3-4 are noted and described above. POS: OFF
[2020-05-31] MEDS ORDERED: Magnevist 469MG/ML 20 ML VIAL ONE ×2 (15:36)
== END 2020-05-31 11:49 | disposition home or self-care (01) ==
LOC: BICMRI 11:48
PROVIDERS: ATTEND Neurological Surgery
DX: M48.062 Spinal stenosis, lumbar region with neurogenic claudication (principal); M47.26 Other spondylosis with radiculopathy, lumbar region; M51.16 Intervertebral disc disorders with radiculopathy, lumbar region; M51.25 Other intervertebral disc displacement, thoracolumbar region; Z98.1 Arthrodesis status
CPT/HCPCS: 72157; 72158; 82565; A9579

== ENCOUNTER 2020-06-19 12:55 | Outpatient (CLI) | payer MEDICARE, MEDICAID ==
--- NOTE | 2020-06-19 14:39 | RAD ---
XR Pelvis AP STANDARD History: Hip pain Comparison: None. Findings: Right SI joint fusion hardware. Moderate narrowing of both hip joints with small acetabular osteophyte formation. No acute displaced fracture or malalignment. Obturator rings are intact. Pubic symphysis is intact. Numerous phleboliths in the pelvis. Likely postoperative changes lower lumbar spine including osseous bar of the posterior elements and discectomy change. Impression: 1. 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 2. Mild degenerative changes of both hips without acute osseous abnormality.
--- NOTE | 2020-06-19 14:42 | MRI ---
Exam: MRI cervical spine without contrast HISTORY: Radiculopathy. Intermittent neck pain. Bilateral hand numbness.. COMPARISON: None FINDINGS: Straightening of normal cervical lordosis is presumed to be positional. No significant STIR hyperint ensity to suggest ligamentous injury or vertebral body edema. Appropriate T1 marrow signal intensity of the cervical vertebra. No fracture. There are prominent anterior osteophytes at C4-C5 an d C5-C6. Minimal chronic endplate irregularities at the superior plate of C5 and superior plate of C7 Visualized brain parenchyma, cervicomedullary junction, cervical cord and the upper thoracic cord hav e a normal size and signal intensity C2-C3: Minimal disc desiccation without significant loss of disc space height. No posterior disc abno rmality. No significant central canal stenosis or significant neural foraminal narrowing C3-C4: Disc desiccation with mild loss of disc space height. Broad-based discussed by tiffanie abuts celeste agarwal thecal sac. Subarachnoid space is maintained. Mild central canal stenosis. Moderate right neural foraminal narrowing due to uncovertebral hypertrophy. Patent left neural foramen. C4-C5: Disc desiccation with mild loss of disc space height. There is a broad-based discussed by karen newman with a central disc herniation. Moderate stenosis of the midline aspect of the thecal sac with mild deformity the cervical cord. No cervical neural cord signal abnormality. Moderate bilateral neur al foraminal narrowing. C5-C6: Disc desiccation with mild loss of disc space height. Broad-based discussed by tiffanie abuts celeste agarwal thecal sac. Subarachnoid space is effaced. There is flattening and deformity the cervical cord. Moderate central canal stenosis. Mild bilateral neural foraminal narrowing due to uncovertebral hyper trophy C6-C7: Disc desiccation with moderate loss of disc space height. Central disc herniation causes mass effect upon the midline cord. Moderate central canal stenosis. No cord signal abnormality. Patent bilateral neural foramina C7-T1: No significant central canal stenosis or significant left neural foraminal narrowing. Mild rig ht foraminal narrowing due to uncovertebral hypertrophy IMPRESSION: Multilevel degenerative changes of the cervical spine as detailed above. Transcribed Date/Time: 06/19/2020 2:47 PM
== END 2020-06-19 12:56 | disposition home or self-care (01) ==
LOC: BICMRI 12:55
PROVIDERS: ATTEND Neurological Surgery
DX: M47.22 Other spondylosis with radiculopathy, cervical region (principal); M25.559 Pain in unspecified hip; M16.0 Bilateral primary osteoarthritis of hip; M46.1 Sacroiliitis, not elsewhere classified
CPT/HCPCS: 72141; 72170

== ENCOUNTER 2020-07-16 14:24 | Outpatient (CLI) | payer MEDICARE, MEDICAID ==
--- NOTE | 2020-07-24 15:36 | CT ---
CT PELVIS WITH CONTRAST: 07/24/20 HISTORY: Lower pelvic pain. COMPARISON: None. FINDINGS: No dilated loops of bowel in the pelvis. Some small fat containing hernia. There is a vertically orie nted scar in the midline below the umbilicus to the pelvis. Moderate diverticular disease sigmoid colon. No active ----- inflammation. The appendix is visualized and appears normal. No free fluid in the pelvis. SI joint effusion hardware, S1-S3. No hardware complications. Left SI joint is only mildly degenerati ve. Moderate degenerative change with sclerosis, narrowing and ossification of the articular disc of the pubic symphysis. Moderate enthesopathic change of the hamstring tendon origins. Discectomy change at L4-5 and L5-S1. O sseous bridge along the posterior elements lower lumbar spine. Moderate bilateral paraspinal muscle atrophy. No retroperitoneal, periaortic adenopathy. Hip flexors and extensors are intact as well as the hip abductors and adductors. The distal abdominal aorta is patent. The iliac vessels are patent. IMPRESSION: 1. Chronic findings. No acute inflammatory process in the pelvis. No findings to explain the pat ient's chronic pelvic pain. 2. Rectosigmoid junctional suture without adjacent abnormal soft tissue mass. 3. Small fat containing umbilical hernia. 4. Intact right SI joint fusion hardware. 5. Normal appearance of the appendix. POS: [facility]
== END 2020-07-16 14:25 | disposition home or self-care (01) ==
LOC: BICCT 14:24
PROVIDERS: ATTEND Internal Medicine Gastroenterology
DX: R10.33 Periumbilical pain (principal); K76.9 Liver disease, unspecified; K42.9 Umbilical hernia without obstruction or gangrene; Z98.1 Arthrodesis status
CPT/HCPCS: 82565

== ENCOUNTER 2020-10-22 12:37 | Outpatient (CLI) | payer MEDICARE, MEDICAID ==
[~2020-10-22 12:37] MED LIST changes: +Iopamidol 370 76% 100 ML VIAL ONE; -Lidocaine 1% PF 5 ML VIAL ONE; -PROPOFOL 200 MG/20 ML VIAL ONE
== END 2020-10-22 12:38 | disposition home or self-care (01) ==
LOC: BICCT 12:37
PROVIDERS: ATTEND Internal Medicine Gastroenterology
DX: R10.9 Unspecified abdominal pain (principal); K57.30 Diverticulosis of large intestine without perforation or abscess without bleeding; N28.9 Disorder of kidney and ureter, unspecified; M47.816 Spondylosis without myelopathy or radiculopathy, lumbar region; K42.9 Umbilical hernia without obstruction or gangrene; K43.9 Ventral hernia without obstruction or gangrene; I25.10 Atherosclerotic heart disease of native coronary artery without angina pectoris; I70.0 Atherosclerosis of aorta; I70.8 Atherosclerosis of other arteries; Z90.49 Acquired absence of other specified parts of digestive tract; Z98.890 Other specified postprocedural states
CPT/HCPCS: 74160; 82565; Q9967

== ENCOUNTER 2021-01-30 09:36 | Outpatient (CLI) | payer MEDICARE, MEDICAID | END 2021-01-30 09:37 | disposition home or self-care (01) | LOC: BICMAMMO 09:36 | PROVIDERS: ATTEND Specialist | DX: N63.0 Unspecified lump in unspecified breast (principal); N60.42 Mammary duct ectasia of left breast | CPT/HCPCS: 76642; 77066; G0279 ==

== ENCOUNTER 2021-02-06 20:40 | Inpatient (IN) | payer MEDICARE, MEDICAID ==
[~2021-02-06 20:40] MED LIST changes: -Iopamidol 370 76% 100 ML VIAL ONE; +Iopamidol-370 76% 500 ML 1 ML ONE
[2021-02-06] MEDS ORDERED: Ondansetron PF 4 MG/2 ML Vial ONE (21:12)
[2021-02-06] MEDS ORDERED: Morphine 4 MG/ML VIAL ONE (21:12)
[2021-02-06 22:04] LABS: ALT (SGPT) 27 U/L (8-55); AST (SGOT) 25 U/L (5-34); Albumin 4.3 g/dL (3.4-4.8); Alkaline Phosphatase 123 U/L (40-110); Anion Gap 16 mmol/L (10-20); BUN (Urea Nitrogen) 21 mg/dL (9.8-20.1); Bilirubin, Total 0.2 mg/dL (0.2-1.2); CK (CPK) 229 U/L (29-168); Calc. Creatinine Clearance 0 mL/min (70-130); Calcium 10.5 mg/dL (7.8-10.44); Carbon Dioxide 23 mmol/L (23-31); Chloride 104 mmol/L (98-107); Globulin 4.7 g/dL (2.4-3.5); Glucose 261 mg/dL (80-115); Lipase 24 U/L (8-78); Potassium 3.8 mmol/L (3.5-5.1); Sodium 139 mmol/L (136-145)
[2021-02-06 22:10] LABS: Band 2 % (5-11); Eosinophils 2 % (0-10); Hemoglobin 13.6 g/dL (12.0-16.0); Lymphocytes 50 % (21-51); MDiff Complete? YES; Mean Corpuscular HGB CONC 33.3 g/dL (32.0-36.0); Mean Corpuscular Hemoglobin 30.5 pg (27.0-31.0); Mean Corpuscular Volume 91.6 fL (78.0-98.0); Mean Platelet Volume 7.1 fL (7.4-10.4); Monocytes 4 % (0-10); Neutrophil 41 % (42-75); Platelet Count 274 thou/uL (130-400); RBC Distribution Width 13.4 % (11.5-14.5); Red Blood Cell (RBC) Count 4.45 mill/uL (4.20-5.40)
[2021-02-07] MEDS ORDERED: hydrALAZINE 20 MG/ML VIAL ONE (00:12)
[2021-02-07] MEDS ORDERED: Nitroglycerin 2% Ointment 1 INCH/1 GM Packet ONE (00:12)
[2021-02-07] MEDS ORDERED: Lidocaine Viscous Sol 2% 15 ml UD Cup ONE (00:12)
[2021-02-07] MEDS ORDERED: Pantoprazole 40 MG VIAL ONE (00:12)
[2021-02-07] MEDS ORDERED: Aspirin Chewable 81 MG TAB ONE (00:12)
[2021-02-07] MEDS ORDERED: Mag-Al 1200 mg/1200 mg/30 ML UDCUP ONE (00:12)
[2021-02-07 01:12] LABS: Troponin I Less than 0.010 ng/mL (< 0.028)
[2021-02-07] MEDS ORDERED: Topiramate 25 MG TAB PO PRN (01:12)
[2021-02-07] MEDS ORDERED: Nitroglycerin 0.4 MG TAB (25 Tab Bottle) SL PRN (01:12)
[2021-02-07] MEDS ORDERED: Ondansetron ODT 4 MG TAB PO PRN (01:55)
[2021-02-07] MEDS ORDERED: Dextrose 5% in Water 1,000 ML IV PRN (02:44)
[2021-02-07] MEDS ORDERED: Dextrose 50% Abboject 50 ML SYRINGE SLOW IVP PRN (02:44)
[2021-02-07] MEDS ORDERED: Acetaminophen 325 MG TAB ONE ×2 (03:21)
[2021-02-07] MEDS: Acetaminophen 325 MG TAB PO PRN ×3 (03:25→21:12)
[2021-02-07 05:14] LABS: Troponin I Less than 0.010 ng/mL (< 0.028)
[2021-02-07] MEDS ORDERED: Carvedilol 25 MG TAB PO SCH ×2 (08:00→17:00)
[2021-02-07] MEDS ORDERED: Spironolactone 25 MG TAB PO SCH ×2 (08:00→18:00)
[2021-02-07] MEDS: Senokot S 8.6-50 MG TAB PO SCH ×2 (08:33→21:13)
[2021-02-07] MEDS: Gabapentin 300 MG CAP PO SCH ×3 (08:34→21:13)
[2021-02-07] MEDS: Hydrochlorothiazide 25 MG TAB PO SCH ×2 (08:35→09:02)
[2021-02-07] MEDS: Lisinopril 20 MG TAB PO SCH ×2 (08:36→21:13)
[2021-02-07] MEDS: Oxybutynin ER 5 MG TAB PO SCH (08:37)
[2021-02-07] MEDS: FLUoxetine HCl 20 MG CAP PO SCH (08:38)
[2021-02-07] MEDS: Polyethylene Glycol 3350 17 GM Packet PO SCH (08:38)
[2021-02-07] MEDS ORDERED: Aspirin 81 mg Enteric Coated Tablet ONE (08:43)
[2021-02-07] MEDS ORDERED: Enoxaparin Sodium 40 MG/0.4 ML SYRINGE ONE (08:43)
[2021-02-07] MEDS: Enoxaparin Sodium 40 MG/0.4 ML SYRINGE SC SCH (08:45)
[2021-02-07] MEDS: Aspirin 81 mg Enteric Coated Tablet PO SCH (08:45)
[2021-02-07] MEDS ORDERED: DAPAGLIFLOZIN PROPANEDIOL PO SCH (09:00)
[2021-02-07 12:56] VITALS: BMI 36.0
[2021-02-07] MEDS: HumuLIN 70/30 (300 UNITS/3 ML VIAL) SC SCH ×2 (13:05→22:01)
[2021-02-07] MEDS: hydrALAZINE 20 MG/ML VIAL SLOW IVP PRN (15:03)
[2021-02-07] MEDS ORDERED: Carvedilol 6.25 MG TAB PO SCH (17:00)
[2021-02-07] MEDS ORDERED: Hydrochlorothiazide 25 MG TAB PO SCH (18:00)
[2021-02-07] MEDS: Atorvastatin Calcium 40 MG TAB PO SCH (21:12)
[2021-02-07] MEDS: Morphine 2 MG/ML VIAL SLOW IVP PRN (23:43)
[2021-02-08] MEDS: Senokot S 8.6-50 MG TAB PO SCH ×2 (08:11→21:03)
[2021-02-08] MEDS: Enoxaparin Sodium 40 MG/0.4 ML SYRINGE SC SCH (08:11)
[2021-02-08] MEDS: FLUoxetine HCl 20 MG CAP PO SCH (08:12)
[2021-02-08] MEDS: Oxybutynin ER 5 MG TAB PO SCH (08:13)
[2021-02-08] MEDS: Aspirin 81 mg Enteric Coated Tablet PO SCH (08:13)
[2021-02-08] MEDS: Gabapentin 300 MG CAP PO SCH ×3 (08:16→21:01)
[2021-02-08] MEDS: Spironolactone 25 MG TAB PO SCH (08:17)
[2021-02-08] MEDS: Hydrochlorothiazide 25 MG TAB PO SCH (08:17)
[2021-02-08] MEDS: HumuLIN 70/30 (300 UNITS/3 ML VIAL) SC SCH ×2 (08:23→21:04)
[2021-02-08] MEDS: Morphine 2 MG/ML VIAL SLOW IVP PRN (08:23)
[2021-02-08] MEDS ORDERED: ADENOSINE 60 MG/20 ML VIAL ONE (09:15)
[2021-02-08 10:23] LABS: Bilirubin Negative (Negative); Blood, Urine Negative (Negative); Clarity Clear (Clear); Glucose, Urine (Dipstick) Greater than 1000 mg/dL (Negative); Ketone, Urine Negative (Negative); Leukocyte Negative Leu/uL (Negative); Nitrite Negative (Negative); Protein, Urine (Dipstick) Negative (Neg-Trace); RBC/HPF 0-3 HPF (0-3); Specific Gravity, Urine 1.025 (1.002-1.036); Squamous Epithelial 0-3 HPF (0-3); Urobilinogen Normal mg/dL (Less than 2); WBC/HPF 0-3 HPF (0-3)
[2021-02-08 10:24] LABS: Bacteria/HPF 1+ HPF (None Seen)
[2021-02-08 10:25] LABS: Urine Culture Reflex Yes Yes
[2021-02-08] MEDS: Lisinopril 20 MG TAB PO SCH ×2 (13:18→21:02)
[2021-02-08] MEDS: Polyethylene Glycol 3350 17 GM Packet PO SCH (13:18)
[2021-02-08] MEDS: Insulin Regular 300 UNITS/3 ML VIAL SC PRN ×2 (13:31→18:13)
[2021-02-08] MEDS: hydrALAZINE 20 MG/ML VIAL SLOW IVP PRN (15:47)
[2021-02-08] MEDS: Atorvastatin Calcium 40 MG TAB PO SCH (21:02)
[2021-02-09] MEDS ORDERED: Carvedilol 25 MG TAB PO SCH (08:00)
[2021-02-09 08:18] LABS: ALT (SGPT) 20 U/L (8-55); AST (SGOT) 18 U/L (5-34); Albumin 3.6 g/dL (3.4-4.8); Alkaline Phosphatase 116 U/L (40-110); Anion Gap 13 mmol/L (10-20); BUN (Urea Nitrogen) 17 mg/dL (9.8-20.1); Bilirubin, Total 0.3 mg/dL (0.2-1.2); Calc. Creatinine Clearance 98 mL/min (70-130); Calcium 9.8 mg/dL (7.8-10.44); Carbon Dioxide 24 mmol/L (23-31); Chloride 105 mmol/L (98-107); Globulin 3.9 g/dL (2.4-3.5); Glucose 117 mg/dL (80-115); Potassium 3.7 mmol/L (3.5-5.1); Protein, Total 7.5 g/dL (5.8-8.1); Sodium 138 mmol/L (136-145)
[2021-02-09] MEDS: FLUoxetine HCl 20 MG CAP PO SCH (09:17)
[2021-02-09] MEDS: Enoxaparin Sodium 40 MG/0.4 ML SYRINGE SC SCH (09:17)
[2021-02-09] MEDS: Gabapentin 300 MG CAP PO SCH ×2 (09:17→14:23)
[2021-02-09] MEDS: Aspirin 81 mg Enteric Coated Tablet PO SCH (09:17)
[2021-02-09] MEDS: Lisinopril 20 MG TAB PO SCH (09:18)
[2021-02-09] MEDS: Polyethylene Glycol 3350 17 GM Packet PO SCH (09:18)
[2021-02-09] MEDS: Hydrochlorothiazide 25 MG TAB PO SCH (09:18)
[2021-02-09] MEDS: Oxybutynin ER 5 MG TAB PO SCH (09:18)
[2021-02-09] MEDS: Senokot S 8.6-50 MG TAB PO SCH (09:19)
[2021-02-09] MEDS: Spironolactone 25 MG TAB PO SCH (09:19)
[2021-02-09] MEDS: HumuLIN 70/30 (300 UNITS/3 ML VIAL) SC SCH (09:23)
[2021-02-09] MEDS: Insulin Regular 300 UNITS/3 ML VIAL SC PRN (12:48)
[2021-02-09 16:02] VITALS: BP 144/71; TEMP 97.4
== END 2021-02-09 16:54 | disposition home or self-care (01) | DRG 305 ==
LOC: ERS 20:40 → INTOOBSV 23:44 → ERHOLD 23:44 → 2SW 02-07 12:10 → OBSVTOIN 02-08 12:12
PROVIDERS: ADMIT Emergency Medicine; ATTEND Emergency Medicine
DX: I16.0 Hypertensive urgency (principal); K59.00 Constipation, unspecified; M54.9 Dorsalgia, unspecified; G89.29 Other chronic pain; E11.9 Type 2 diabetes mellitus without complications; E78.5 Hyperlipidemia, unspecified; F31.9 Bipolar disorder, unspecified; K21.9 Gastro-esophageal reflux disease without esophagitis; B18.2 Chronic viral hepatitis C; M32.9 Systemic lupus erythematosus, unspecified; Z96.652 Presence of left artificial knee joint; Z88.8 Allergy status to other drugs, medicaments and biological substances; Z86.73 Personal history of transient ischemic attack (TIA), and cerebral infarction without residual deficits; Z79.82 Long term (current) use of aspirin; Z79.51 Long term (current) use of inhaled steroids; Z79.899 Other long term (current) drug therapy; Z90.710 Acquired absence of both cervix and uterus
CPT/HCPCS: 36415; 36416; 70553; 71045; 71275; 72070; 72100; 74174; 78452; 80053; 81001; 82550; 83690; 83880; 84484; 85025; 87086; 93005; 93017; 96372; 96376; A9500; C9113; G0378; J0153; J0360; J1650; J1815; J2270; J2405; Q0162; Q9967

== ENCOUNTER 2021-02-14 09:50 | Outpatient (CLI) | payer MEDICARE, MEDICAID | END 2021-02-14 09:51 | disposition home or self-care (01) | LOC: BICMRI 09:50 | PROVIDERS: ATTEND Specialist | DX: N63.0 Unspecified lump in unspecified breast (principal) | CPT/HCPCS: A9577; C8908 ==

== ENCOUNTER 2021-06-15 08:06 | Emergency (ER) | payer MEDICARE, MEDICAID ==
[2021-06-15] MEDS ORDERED: Labetalol HCl 100 MG/20 ML VIAL ONE (08:20)
[2021-06-15] MEDS ORDERED: Aspirin Chewable 81 MG TAB ONE (08:20)
[2021-06-15] MEDS ORDERED: Acetaminophen 500 MG TAB ONE (08:28)
[2021-06-15 08:29] LABS: #Basophils 0.1 thou/uL (0.0-0.2); #Eosinphils 0.1 thou/uL (0.0-0.7); #Lymphocytes 1.8 thou/uL (1.20-3.40); #Monocytes 0.3 thou/uL (0.11-0.59); #Neutrophils 1.6 thou/uL (1.40-6.50); %Basophils 1.6 % (0.0-1.0); %Eosinophils 2.3 % (0.0-10.0); %Lymphocytes 46.5 % (21.0-51.0); %Monocytes 7.6 % (0.0-10.0); Hemoglobin 13.7 g/dL (12.0-16.0); Mean Corpuscular HGB CONC 33.5 g/dL (32.0-36.0); Mean Corpuscular Hemoglobin 30.8 pg (27.0-31.0); Mean Corpuscular Volume 91.9 fL (78.0-98.0); Mean Platelet Volume 6.9 fL (7.4-10.4); Platelet Count 220 thou/uL (130-400); Red Blood Cell (RBC) Count 4.44 mill/uL (4.20-5.40); White Blood Cell (WBC) Count 3.8 thou/uL (4.8-10.8)
[2021-06-15 08:42] LABS: ALT (SGPT) 43 U/L (8-55); AST (SGOT) 42 U/L (5-34); Albumin 3.9 g/dL (3.4-4.8); Alkaline Phosphatase 134 U/L (40-110); Anion Gap 11 mmol/L (10-20); BUN (Urea Nitrogen) 13 mg/dL (9.8-20.1); Bilirubin, Total 0.4 mg/dL (0.2-1.2); Calc. Creatinine Clearance 0 mL/min (70-130); Calcium 9.5 mg/dL (7.8-10.44); Carbon Dioxide 25 mmol/L (23-31); Chloride 104 mmol/L (98-107); Globulin 3.8 g/dL (2.4-3.5); Glucose 142 mg/dL (80-115); Lipase 10 U/L (8-78); Magnesium 1.8 mg/dL (1.6-2.6); Potassium 3.6 mmol/L (3.5-5.1); Protein, Total 7.7 g/dL (5.8-8.1); Sodium 136 mmol/L (136-145)
== END 2021-06-15 09:30 | disposition home or self-care (01) ==
LOC: ERS 08:06
DX: I11.0 Hypertensive heart disease with heart failure (principal); I50.9 Heart failure, unspecified; E11.9 Type 2 diabetes mellitus without complications; E78.00 Pure hypercholesterolemia, unspecified; E78.5 Hyperlipidemia, unspecified; I25.10 Atherosclerotic heart disease of native coronary artery without angina pectoris; Z86.73 Personal history of transient ischemic attack (TIA), and cerebral infarction without residual deficits; Z79.899 Other long term (current) drug therapy; Z79.4 Long term (current) use of insulin
CPT/HCPCS: 71045; 80053; 83690; 83735; 83880; 84484; 85025; 93005; 96365

== ENCOUNTER 2021-07-21 13:06 | Outpatient (CLI) | payer MEDICARE, MEDICAID ==
[2021-07-21 13:43] LABS: Estimated GFR-MDRD - POC Greater than 90
== END 2021-07-21 13:07 | disposition home or self-care (01) ==
LOC: BICCT 13:06
PROVIDERS: ATTEND Family Medicine
DX: R22.1 Localized swelling, mass and lump, neck (principal); R22.2 Localized swelling, mass and lump, trunk
CPT/HCPCS: 71260; 82565

== ENCOUNTER 2021-09-01 09:40 | Outpatient (CLI) | payer MEDICARE, MEDICAID ==
[2021-09-02 11:50] LABS: SARS-CoV-2 PCR by NAA Not Detected (NotDetected)
== END 2021-09-01 09:41 | disposition home or self-care (01) ==
LOC: LABBT 09:40
PROVIDERS: ATTEND Internal Medicine Gastroenterology
DX: Z01.812 Encounter for preprocedural laboratory examination (principal); R13.10 Dysphagia, unspecified; K21.9 Gastro-esophageal reflux disease without esophagitis; K76.0 Fatty (change of) liver, not elsewhere classified; R10.10 Upper abdominal pain, unspecified; R63.5 Abnormal weight gain; E11.9 Type 2 diabetes mellitus without complications; Z20.822 Contact with and (suspected) exposure to COVID-19
CPT/HCPCS: U0003; U0005

== ENCOUNTER 2021-09-04 10:49 | Day surgery (SDC) | payer MEDICARE, MEDICAID ==
[2021-08-26 11:15] VITALS: BMI 36.3
[2021-09-04] MEDS ORDERED: Ketamine 50 MG/ML (10ML VIAL) ONE (12:33)
[2021-09-04] MEDS ORDERED: Fentanyl 100 MCG/2 ML VIAL ONE (12:33)
[2021-09-04] MEDS ORDERED: PROPOFOL 200 MG/20 ML VIAL ONE (13:21)
[2021-09-04] MEDS ORDERED: Lidocaine 1% PF 5 ML VIAL ONE (13:21)
== END 2021-09-04 14:43 | disposition home or self-care (01) ==
LOC: SDC 10:49
PROVIDERS: ATTEND Internal Medicine Gastroenterology
PROC: 0D757ZZ Dilation of Esophagus, Via Natural or Artificial Opening (ICD-10-PCS; principal; 2021-09-04)
PROC: 0DB38ZX Excision of Lower Esophagus, Via Natural or Artificial Opening Endoscopic, Diagnostic (ICD-10-PCS; 2021-09-04)
DX: K21.00 Gastro-esophageal reflux disease with esophagitis, without bleeding (principal); R13.10 Dysphagia, unspecified; K44.9 Diaphragmatic hernia without obstruction or gangrene; I10 Essential (primary) hypertension; E78.5 Hyperlipidemia, unspecified; E10.9 Type 1 diabetes mellitus without complications; M19.90 Unspecified osteoarthritis, unspecified site; Z86.73 Personal history of transient ischemic attack (TIA), and cerebral infarction without residual deficits; Z79.01 Long term (current) use of anticoagulants; Z79.82 Long term (current) use of aspirin; Z79.84 Long term (current) use of oral hypoglycemic drugs; Z79.899 Other long term (current) drug therapy; Z88.6 Allergy status to analgesic agent; Z88.8 Allergy status to other drugs, medicaments and biological substances
CPT/HCPCS: 36416; 88305; J2704; J3010

== ENCOUNTER 2022-02-16 12:30 | Outpatient (CLI) | payer MEDICARE, OTHER | END 2022-02-16 12:31 | disposition home or self-care (01) | LOC: BICULT 12:30 | PROVIDERS: ATTEND Urology | DX: N28.1 Cyst of kidney, acquired (principal) | CPT/HCPCS: 76770 ==

== ENCOUNTER 2022-04-20 09:33 | Outpatient (CLI) | payer MEDICARE, MEDICAID | END 2022-04-20 09:34 | disposition home or self-care (01) | LOC: BICMAMMO 09:33 | PROVIDERS: ATTEND Family Medicine | DX: Z12.31 Encounter for screening mammogram for malignant neoplasm of breast (principal); Z91.89 Other specified personal risk factors, not elsewhere classified | CPT/HCPCS: 77063; 77067 ==

== ENCOUNTER 2022-05-20 08:22 | Outpatient (CLI) | payer MEDICARE, OTHER ==
[2022-05-20] MEDS ORDERED: Iopamidol 370 76% 100 ML VIAL ONE (14:27)
== END 2022-05-20 08:23 | disposition home or self-care (01) ==
LOC: CT 08:22
PROVIDERS: ATTEND Internal Medicine Gastroenterology
DX: R10.9 Unspecified abdominal pain (principal); K76.0 Fatty (change of) liver, not elsewhere classified; K57.30 Diverticulosis of large intestine without perforation or abscess without bleeding; K44.9 Diaphragmatic hernia without obstruction or gangrene; J98.11 Atelectasis; I70.0 Atherosclerosis of aorta; I70.8 Atherosclerosis of other arteries; K83.8 Other specified diseases of biliary tract; N28.9 Disorder of kidney and ureter, unspecified; K66.8 Other specified disorders of peritoneum; K43.9 Ventral hernia without obstruction or gangrene; K42.9 Umbilical hernia without obstruction or gangrene; M25.78 Osteophyte, vertebrae; M47.816 Spondylosis without myelopathy or radiculopathy, lumbar region; G12.9 Spinal muscular atrophy, unspecified; Z90.49 Acquired absence of other specified parts of digestive tract; Z98.1 Arthrodesis status
CPT/HCPCS: 74160; 82565; Q9967

== ENCOUNTER 2022-06-21 09:40 | Inpatient (IN) | payer MEDICARE, MEDICAID ==
[2022-06-21] MEDS ORDERED: Aspirin Chewable 81 MG TAB ONE (10:19)
[2022-06-21 10:58] LABS: ALT (SGPT) 20 U/L (8-55); AST (SGOT) 21 U/L (5-34); Albumin 3.9 g/dL (3.4-4.8); Alkaline Phosphatase 111 U/L (40-110); Anion Gap 14 mmol/L (10-20); BUN (Urea Nitrogen) 14 mg/dL (9.8-20.1); Bilirubin, Total 0.3 mg/dL (0.2-1.2); Calc. Creatinine Clearance 0 mL/min (70-130); Calcium 9.9 mg/dL (7.8-10.44); Carbon Dioxide 24 mmol/L (23-31); Chloride 106 mmol/L (98-107); Estimated GFR 83; Globulin 4.3 g/dL (2.4-3.5); Glucose 160 mg/dL (80-115); Potassium 3.9 mmol/L (3.5-5.1); Protein, Total 8.2 g/dL (5.8-8.1); Sodium 140 mmol/L (136-145)
[2022-06-21] MEDS ORDERED: Ondansetron PF 4 MG/2 ML Vial ONE (11:14)
[2022-06-21] MEDS ORDERED: Morphine 4 MG/ML VIAL ONE ×2 (11:14→13:05)
[2022-06-21 11:32] LABS: Hemoglobin 13.3 g/dL (12.0-16.0); Mean Corpuscular HGB CONC 33.2 g/dL (32.0-36.0); Mean Corpuscular Hemoglobin 31.2 pg (27.0-31.0); Mean Corpuscular Volume 93.9 fl (78.0-98.0); Mean Platelet Volume 8.8 fL (7.4-10.4); Platelet Count 175 10x3/uL (130-400); RBC Distribution Width 13.5 % (11.5-14.5); Red Blood Cell (RBC) Count 4.26 mill/uL (4.20-5.40); White Blood Cell (WBC) Count 6.6 10x3/uL (4.8-10.8)
[2022-06-21 11:46] LABS: #Eosinphils 0.2 thou/uL (0.0-0.7); #Lymphocytes 3.2 thou/uL (1.20-3.40); #Monocytes 0.5 thou/uL (0.11-0.59); #Neutrophils 2.7 thou/uL (1.40-6.50); %Basophils 0.3 % (0.0-1.0); %Eosinophils 3.6 % (0.0-10.0); %Lymphocytes 47.8 % (21.0-51.0); %Monocytes 7.7 % (0.0-10.0); %Neutrophils 40.7 % (42.0-75.0); Hypochromia SLIGHT = 6-15 cells (100X) (0-5/hpf); MDiff Complete? YES; Platelet Clumps MODERATE; Platelet Morphology Comment Appears Adequate
[2022-06-21 12:02] LABS: SARS-CoV-2 NAA Rapid Test Not Detected (NotDetected)
[2022-06-21] MEDS ORDERED: HumaLOG 300 UNITS/3 ML VIAL SC PRN (14:06)
[2022-06-21] MEDS ORDERED: Dextrose 50% Abboject 50 ML SYRINGE SLOW IVP PRN (14:06)
[2022-06-21] MEDS ORDERED: Dextrose 5% in Water 1,000 ML IV PRN (14:06)
[2022-06-21] MEDS ORDERED: HYDROcodone/Acetaminophen 5/325 mg Tablet PO PRN (14:07)
[2022-06-21] MEDS ORDERED: Senokot S 8.6-50 MG TAB PO PRN (14:07)
[2022-06-21 14:50] VITALS: BMI 38.7
[2022-06-21] MEDS ORDERED: Enoxaparin Sodium 40 MG/0.4 ML SYRINGE SC SCH (15:00)
[2022-06-21] MEDS ORDERED: FLU VACC QS2022-23(65YR UP)/PF 240 MCG/0.7 ML SYRINGE IM ONE (15:00)
[2022-06-21] MEDS: Gabapentin 300 MG CAP PO SCH ×2 (16:13→19:52)
[2022-06-21] MEDS: Atorvastatin Calcium 40 MG TAB PO SCH (19:52)
[2022-06-21] MEDS: Docusate 100 MG CAP PO SCH (19:53)
[2022-06-21] MEDS: Acetaminophen 325 MG TAB PO PRN (22:19)
[2022-06-21] MEDS ORDERED: Lisinopril 10 MG TAB PO SCH (23:00)
[2022-06-21] MEDS ORDERED: Amlodipine 5 MG TAB PO SCH (23:30)
[2022-06-22 05:47] LABS: ALT (SGPT) 18 U/L (8-55); AST (SGOT) 22 U/L (5-34); Albumin 3.4 g/dL (3.4-4.8); Alkaline Phosphatase 103 U/L (40-110); Anion Gap 12 mmol/L (10-20); BUN (Urea Nitrogen) 17 mg/dL (9.8-20.1); Bilirubin, Total 0.3 mg/dL (0.2-1.2); Calc. Creatinine Clearance 102 mL/min (70-130); Calcium 9.4 mg/dL (7.8-10.44); Carbon Dioxide 25 mmol/L (23-31); Cardiac Risk 3.5 (Less than 4.5); Chloride 104 mmol/L (98-107); Cholesterol 121 mg/dl (< 200 Desired); Estimated GFR 75; Globulin 3.7 g/dL (2.4-3.5); Glucose 166 mg/dL (80-115); HDL Cholesterol 35 mg/dL (>60 Neg Risk); LDL Cholesterol, Calculated 65 mg/dL; Potassium 3.8 mmol/L (3.5-5.1); Protein, Total 7.1 g/dL (5.8-8.1); Sodium 137 mmol/L (136-145); Triglycerides 103 mg/dL (Less than 150)
[2022-06-22] MEDS: Acetaminophen 325 MG TAB PO PRN ×2 (08:09→22:10)
[2022-06-22 08:12] LABS: Hemoglobin 12.3 g/dL (12.0-16.0); Mean Corpuscular HGB CONC 30.5 g/dL (32.0-36.0); Mean Corpuscular Hemoglobin 30.3 pg (27.0-31.0); Mean Corpuscular Volume 99.2 fl (78.0-98.0); Mean Platelet Volume 7.6 fL (7.4-10.4); Platelet Count 188 10x3/uL (130-400); RBC Distribution Width 13.5 % (11.5-14.5); Red Blood Cell (RBC) Count 4.06 mill/uL (4.20-5.40); White Blood Cell (WBC) Count 4.7 10x3/uL (4.8-10.8)
[2022-06-22 08:15] LABS: Eosinophils 5 % (0-10); Lymphocytes 46 % (21-51); MDiff Complete? YES; Monocytes 11 % (0-10); Neutrophil 38 % (42-75); Platelet Morphology Comment Appears Adequate; RBC Morphology Normal
[2022-06-22] MEDS: FLUoxetine HCl 20 MG CAP PO SCH (08:23)
[2022-06-22] MEDS: Aspirin Chewable 81 MG TAB PO SCH (08:23)
[2022-06-22] MEDS: Gabapentin 300 MG CAP PO SCH ×3 (08:23→20:20)
[2022-06-22] MEDS: Cholecalciferol 1,000 UNITS (25 MCG) TAB PO SCH (08:24)
[2022-06-22] MEDS: Docusate 100 MG CAP PO SCH ×2 (08:24→20:20)
[2022-06-22] MEDS: Oxybutynin ER 5 MG TAB PO SCH (08:24)
[2022-06-22] MEDS: Empagliflozin 25 MG TAB PO SCH (08:24)
[2022-06-22] MEDS ORDERED: ADENOSINE 60 MG/20 ML VIAL ONE (09:26)
[2022-06-22] MEDS: Carvedilol 25 MG TAB PO SCH (10:33)
[2022-06-22] MEDS: Doxycycline 100 MG in Sodium Chloride 0.9% 100 ML IVPB SCH (15:11)
[2022-06-22] MEDS: Atorvastatin Calcium 40 MG TAB PO SCH (20:20)
[2022-06-22] MEDS: Enoxaparin Sodium 40 MG/0.4 ML SYRINGE SC SCH (20:20)
[2022-06-22] MEDS ORDERED: Doxycycline 100 MG in Syringe 0 ML IVPB SCH (21:00)
[2022-06-23] MEDS: Doxycycline 100 MG in Sodium Chloride 0.9% 100 ML IVPB SCH (03:11)
[2022-06-23] MEDS: Acetaminophen 325 MG TAB PO PRN ×3 (03:36→21:13)
[2022-06-23 05:26] LABS: Phosphorus 4.2 mg/dL (2.3-4.7)
[2022-06-23 05:33] LABS: ALT (SGPT) 17 U/L (8-55); AST (SGOT) 16 U/L (5-34); Albumin 3.4 g/dL (3.4-4.8); Alkaline Phosphatase 105 U/L (40-110); Anion Gap 13 mmol/L (10-20); BUN (Urea Nitrogen) 18 mg/dL (9.8-20.1); Bilirubin, Total 0.3 mg/dL (0.2-1.2); Calc. Creatinine Clearance 102 mL/min (70-130); Calcium 9.9 mg/dL (7.8-10.44); Carbon Dioxide 26 mmol/L (23-31); Chloride 104 mmol/L (98-107); Estimated GFR 75; Glucose 158 mg/dL (80-115); Magnesium 1.9 mg/dL (1.6-2.6); Potassium 3.8 mmol/L (3.5-5.1); Protein, Total 7.4 g/dL (5.8-8.1); Sodium 139 mmol/L (136-145)
[2022-06-23 05:51] LABS: #Basophils 0.1 thou/uL (0.0-0.2); #Eosinphils 0.2 thou/uL (0.0-0.7); #Lymphocytes 2.4 thou/uL (1.20-3.40); #Monocytes 0.6 thou/uL (0.11-0.59); #Neutrophils 2.7 thou/uL (1.40-6.50); %Eosinophils 2.8 % (0.0-10.0); %Lymphocytes 40.3 % (21.0-51.0); %Monocytes 10.2 % (0.0-10.0); %Neutrophils 45.7 % (42.0-75.0); Hemoglobin 12.3 g/dL (12.0-16.0); Mean Corpuscular HGB CONC 31.9 g/dL (32.0-36.0); Mean Corpuscular Hemoglobin 30.1 pg (27.0-31.0); Mean Corpuscular Volume 94.4 fl (78.0-98.0); Mean Platelet Volume 7.7 fL (7.4-10.4); Platelet Count 201 10x3/uL (130-400); RBC Distribution Width 13.4 % (11.5-14.5); Red Blood Cell (RBC) Count 4.09 mill/uL (4.20-5.40); White Blood Cell (WBC) Count 5.9 10x3/uL (4.8-10.8)
[2022-06-23] MEDS: FLUoxetine HCl 20 MG CAP PO SCH (08:50)
[2022-06-23] MEDS: Aspirin Chewable 81 MG TAB PO SCH (08:50)
[2022-06-23] MEDS: Gabapentin 300 MG CAP PO SCH ×3 (08:50→20:07)
[2022-06-23] MEDS: hydrALAZINE 25 MG TAB PO SCH ×2 (08:51→20:07)
[2022-06-23] MEDS: Cholecalciferol 1,000 UNITS (25 MCG) TAB PO SCH (08:52)
[2022-06-23] MEDS: Docusate 100 MG CAP PO SCH ×2 (08:52→20:07)
[2022-06-23] MEDS: Carvedilol 25 MG TAB PO SCH ×2 (08:52→17:45)
[2022-06-23] MEDS: Oxybutynin ER 5 MG TAB PO SCH (09:00)
[2022-06-23] MEDS ORDERED: NIFEdipine XL 60 MG TAB PO SCH (09:45)
[2022-06-23] MEDS ORDERED: Spironolactone 25 MG TAB PO SCH (09:45)
[2022-06-23] MEDS: Empagliflozin 25 MG TAB PO SCH (11:03)
[2022-06-23] MEDS ORDERED: Potassium Chloride 20 MEQ TAB PO SCH (12:15)
[2022-06-23] MEDS: Enoxaparin Sodium 40 MG/0.4 ML SYRINGE SC SCH (20:07)
[2022-06-23] MEDS: Atorvastatin Calcium 40 MG TAB PO SCH (20:07)
[2022-06-24 05:34] LABS: #Eosinphils 0.3 thou/uL (0.0-0.7); #Lymphocytes 2.7 thou/uL (1.20-3.40); #Monocytes 0.6 thou/uL (0.11-0.59); #Neutrophils 2.2 thou/uL (1.40-6.50); %Basophils 0.8 % (0.0-1.0); %Eosinophils 4.3 % (0.0-10.0); %Lymphocytes 46.6 % (21.0-51.0); %Monocytes 9.6 % (0.0-10.0); %Neutrophils 38.8 % (42.0-75.0); Hemoglobin 11.8 g/dL (12.0-16.0); Mean Corpuscular HGB CONC 32.4 g/dL (32.0-36.0); Mean Corpuscular Hemoglobin 30.4 pg (27.0-31.0); Mean Platelet Volume 7.5 fL (7.4-10.4); Platelet Count 204 10x3/uL (130-400); RBC Distribution Width 13.4 % (11.5-14.5); Red Blood Cell (RBC) Count 3.89 mill/uL (4.20-5.40); White Blood Cell (WBC) Count 5.8 10x3/uL (4.8-10.8)
[2022-06-24 05:37] LABS: ALT (SGPT) 16 U/L (8-55); AST (SGOT) 15 U/L (5-34); Albumin 3.4 g/dL (3.4-4.8); Alkaline Phosphatase 105 U/L (40-110); Anion Gap 11 mmol/L (10-20); BUN (Urea Nitrogen) 19 mg/dL (9.8-20.1); Bilirubin, Total 0.3 mg/dL (0.2-1.2); Calc. Creatinine Clearance 85 mL/min (70-130); Calcium 9.6 mg/dL (7.8-10.44); Carbon Dioxide 26 mmol/L (23-31); Chloride 107 mmol/L (98-107); Estimated GFR 60; Glucose 169 mg/dL (80-115); Protein, Total 7.4 g/dL (5.8-8.1); Sodium 140 mmol/L (136-145)
[2022-06-24] MEDS ORDERED: Spironolactone 25 MG TAB PO SCH (08:00)
[2022-06-24] MEDS: Aspirin Chewable 81 MG TAB PO SCH (08:38)
[2022-06-24] MEDS: hydrALAZINE 25 MG TAB PO SCH (08:38)
[2022-06-24] MEDS: Oxybutynin ER 5 MG TAB PO SCH (08:40)
[2022-06-24] MEDS: Carvedilol 25 MG TAB PO SCH (08:41)
[2022-06-24] MEDS: FLUoxetine HCl 20 MG CAP PO SCH (08:41)
[2022-06-24] MEDS: Gabapentin 300 MG CAP PO SCH (08:42)
[2022-06-24] MEDS: Docusate 100 MG CAP PO SCH (08:42)
[2022-06-24] MEDS: Cholecalciferol 1,000 UNITS (25 MCG) TAB PO SCH (08:43)
[2022-06-24] MEDS: Empagliflozin 25 MG TAB PO SCH (08:44)
[2022-06-24] MEDS ORDERED: Hydrochlorothiazide 25 MG TAB PO SCH (09:00)
[2022-06-24] MEDS ORDERED: NIFEdipine XL 60 MG TAB PO SCH (09:00)
[2022-06-24] MEDS ORDERED: prednisoLONE 10 MG ODT TAB PO SCH (09:00)
[2022-06-24 11:35] VITALS: BP 149/80; TEMP 97.8
== END 2022-06-24 13:00 | disposition home or self-care (01) | DRG 313 ==
LOC: ERS 09:40 → 2SW 13:04 → OBSVTOIN 06-23 11:37
PROVIDERS: ADMIT Student in an Organized Health Care Education/Training Program; ATTEND Internal Medicine
DX: R07.89 Other chest pain (principal); I50.32 Chronic diastolic (congestive) heart failure; I11.0 Hypertensive heart disease with heart failure; F31.9 Bipolar disorder, unspecified; G89.29 Other chronic pain; M10.9 Gout, unspecified; Z79.4 Long term (current) use of insulin; Z79.84 Long term (current) use of oral hypoglycemic drugs; Z88.8 Allergy status to other drugs, medicaments and biological substances; Z20.822 Contact with and (suspected) exposure to COVID-19; E11.42 Type 2 diabetes mellitus with diabetic polyneuropathy; Z86.73 Personal history of transient ischemic attack (TIA), and cerebral infarction without residual deficits; K75.81 Nonalcoholic steatohepatitis (NASH); I25.10 Atherosclerotic heart disease of native coronary artery without angina pectoris
CPT/HCPCS: 36415; 36416; 71045; 71275; 74177; 78452; 80053; 80061; 83605; 83735; 83880; 84100; 84484; 84550; 85025; 85379; 93005; 93017; 93306; 93970; 94760; 96372; 96374; 96375; 96376; A9500; G0378; J0153; J1650; J2270; J2405; J3490; Q9967; U0002

== ENCOUNTER 2022-08-31 15:15 | Outpatient (CLI) | payer MEDICARE, OTHER | END 2022-08-31 15:16 | disposition home or self-care (01) | LOC: BICRAD 15:15 | PROVIDERS: ATTEND Internal Medicine | DX: R07.81 Pleurodynia (principal) ==

== ENCOUNTER 2023-03-04 17:11 | Observation (INO) | payer MEDICARE, MEDICAID ==
[2023-03-04] MEDS ORDERED: Nitroglycerin 0.4 MG TAB 1 EACH ONE (18:15)
[2023-03-04 18:22] LABS: #Eosinphils 0.3 thou/uL (0.0-0.7); #Monocytes 0.4 thou/uL (0.11-0.59); #Neutrophils 1.9 thou/uL (1.40-6.50); %Basophils 0.6 % (0.0-1.0); %Eosinophils 5.1 % (0.0-10.0); %Lymphocytes 51.2 % (21.0-51.0); %Monocytes 6.9 % (0.0-10.0); Hemoglobin 11.9 g/dL (12.0-16.0); Mean Corpuscular Hemoglobin 29.5 pg (27.0-31.0); Mean Corpuscular Volume 89.6 fl (78.0-98.0); Mean Platelet Volume 10.1 fL (7.4-10.4); Platelet Count 210 10x3/uL (130-400); RBC Distribution Width 14.9 % (11.5-14.5); Red Blood Cell (RBC) Count 4.03 mill/uL (4.20-5.40); White Blood Cell (WBC) Count 5.3 10x3/uL (4.8-10.8)
[2023-03-04 18:28] LABS: Bacteria/HPF None Seen HPF (None Seen); Bilirubin Negative (Negative); Blood, Urine Negative (Negative); CAUTI Indications for Culture Alt mental st,lethar; Clarity Clear (Clear); Glucose, Urine (Dipstick) Normal (Negative); Ketone, Urine Negative (Negative); Leukocyte Negative Leu/uL (Negative); Nitrite Negative (Negative); Protein, Urine (Dipstick) 20 mg/dL (Neg-Trace); RBC/HPF None Seen HPF (0-3); Specific Gravity, Urine 1.012 (1.002-1.036); Squamous Epithelial None Seen HPF (0-3); Urobilinogen Normal mg/dL (Less than 2); WBC/HPF 0-3 HPF (0-3)
[2023-03-04 18:29] LABS: Urine Culture Reflex No No
[2023-03-04 18:43] LABS: ALT (SGPT) 18 U/L (8-55); AST (SGOT) 19 U/L (5-34); Albumin 3.8 g/dL (3.4-4.8); Alkaline Phosphatase 104 U/L (40-110); Anion Gap 11 mmol/L (10-20); BUN (Urea Nitrogen) 17 mg/dL (9.8-20.1); Bilirubin, Total 0.2 mg/dL (0.2-1.2); Calc. Creatinine Clearance 0 mL/min (70-130); Calcium 9.1 mg/dL (7.8-10.44); Carbon Dioxide 26 mmol/L (23-31); Chloride 109 mmol/L (98-107); Estimated GFR 71; Globulin 3.2 g/dL (2.4-3.5); Glucose 163 mg/dL (80-115); Potassium 4.2 mmol/L (3.5-5.1); Sodium 142 mmol/L (136-145)
[2023-03-04] MEDS ORDERED: Glucagon 1 MG/ML KIT IM PRN (20:59)
[2023-03-04] MEDS ORDERED: HumaLOG 300 UNITS/3 ML VIAL SC PRN ×2 (20:59)
[2023-03-04] MEDS ORDERED: Dextrose 5% in Water 1,000 ML IV PRN (20:59)
[2023-03-04] MEDS ORDERED: Dextrose 50% Abboject 50 ML SYRINGE SLOW IVP PRN (20:59)
[2023-03-04 21:51] LABS: #Eosinphils 0.3 thou/uL (0.0-0.7); #Monocytes 0.4 thou/uL (0.11-0.59); #Neutrophils 1.9 thou/uL (1.40-6.50); %Basophils 0.4 % (0.0-1.0); %Eosinophils 4.6 % (0.0-10.0); %Monocytes 7.3 % (0.0-10.0); %Neutrophils 33.5 % (42.0-75.0); Hemoglobin 12.1 g/dL (12.0-16.0); Mean Corpuscular Hemoglobin 29.8 pg (27.0-31.0); Mean Corpuscular Volume 90.4 fl (78.0-98.0); Mean Platelet Volume 9.8 fL (7.4-10.4); Platelet Count 215 10x3/uL (130-400); RBC Distribution Width 14.9 % (11.5-14.5); Red Blood Cell (RBC) Count 4.06 mill/uL (4.20-5.40); White Blood Cell (WBC) Count 5.6 10x3/uL (4.8-10.8)
[2023-03-04 22:13] LABS: Anion Gap 10 mmol/L (10-20); BUN (Urea Nitrogen) 15 mg/dL (9.8-20.1); Calc. Creatinine Clearance 0 mL/min (70-130); Calcium 9.6 mg/dL (7.8-10.44); Carbon Dioxide 27 mmol/L (23-31); Chloride 108 mmol/L (98-107); Estimated GFR 77; Glucose 127 mg/dL (80-115); Potassium 3.7 mmol/L (3.5-5.1); Sodium 141 mmol/L (136-145)
[2023-03-04 22:20] LABS: Troponin I Less than 0.010 ng/mL (< 0.028)
[2023-03-04 22:41] VITALS: BMI 37.1
[2023-03-04] MEDS ORDERED: hydrALAZINE 20 MG/ML VIAL SLOW IVP PRN (23:14)
[2023-03-04] MEDS: Labetalol HCl 100 MG/20 ML VIAL SLOW IVP PRN (23:55)
[2023-03-04] MEDS ORDERED: Acetaminophen 325 MG TAB PO SCH (23:59)
[2023-03-05 00:36] LABS: Troponin I 0.017 ng/mL (< 0.028)
[2023-03-05] MEDS: Labetalol HCl 100 MG/20 ML VIAL SLOW IVP PRN (03:45)
[2023-03-05 05:00] LABS: Cardiac Risk 3.4 (Less than 4.5)
[2023-03-05] MEDS ORDERED: Senokot S 8.6-50 MG TAB PO PRN (06:52)
[2023-03-05] MEDS ORDERED: Spironolactone 25 MG TAB PO SCH (08:00)
[2023-03-05] MEDS ORDERED: Oxybutynin ER 5 MG TAB PO SCH (09:00)
[2023-03-05] MEDS ORDERED: Aspirin 81 mg Enteric Coated Tablet PO SCH (09:00)
[2023-03-05] MEDS ORDERED: Carvedilol 25 MG TAB PO SCH (09:00)
[2023-03-05] MEDS ORDERED: FLUoxetine HCl 20 MG CAP PO SCH (09:00)
[2023-03-05] MEDS ORDERED: Aspirin 325 mg Enteric Coated Tablet PO SCH (09:00)
[2023-03-05] MEDS ORDERED: Docusate 100 MG CAP PO SCH (09:00)
[2023-03-05] MEDS ORDERED: Allopurinol 100 MG TAB PO SCH (09:00)
[2023-03-05 12:03] VITALS: TEMP 98.5
[2023-03-05 12:49] VITALS: BP 193/91
[2023-03-05] MEDS ORDERED: Gabapentin 300 MG CAP PO SCH ×2 (15:00→21:00)
[2023-03-05] MEDS ORDERED: Atorvastatin Calcium 40 MG TAB PO SCH (21:00)
== END 2023-03-05 13:22 | disposition home health service (06) ==
LOC: ERS 17:11 → 2SE 19:58
PROVIDERS: ADMIT Hospitalist; ATTEND Internal Medicine
DX: R07.9 Chest pain, unspecified (principal); I11.0 Hypertensive heart disease with heart failure; I50.9 Heart failure, unspecified; E11.9 Type 2 diabetes mellitus without complications; I25.10 Atherosclerotic heart disease of native coronary artery without angina pectoris; I08.1 Rheumatic disorders of both mitral and tricuspid valves; I16.0 Hypertensive urgency; E78.5 Hyperlipidemia, unspecified; E66.01 Morbid (severe) obesity due to excess calories; Z68.37 Body mass index [BMI] 37.0-37.9, adult; Z79.4 Long term (current) use of insulin; Z79.82 Long term (current) use of aspirin; Z79.899 Other long term (current) drug therapy; Z88.8 Allergy status to other drugs, medicaments and biological substances
CPT/HCPCS: 36415; 36416; 70450; 71045; 80053; 80061; 81001; 84484; 85025; 93005; 93306; 94760; 96374; 96376; G0378; J1815

== ENCOUNTER 2023-03-15 10:15 | Outpatient (CLI) | payer MEDICARE, OTHER | END 2023-03-15 10:16 | disposition home or self-care (01) | LOC: BICULT 10:15 | PROVIDERS: ATTEND Internal Medicine Gastroenterology | DX: R14.0 Abdominal distension (gaseous) (principal); K21.00 Gastro-esophageal reflux disease with esophagitis, without bleeding; E11.9 Type 2 diabetes mellitus without complications; E66.01 Morbid (severe) obesity due to excess calories; K76.0 Fatty (change of) liver, not elsewhere classified; R22.32 Localized swelling, mass and lump, left upper limb; N28.1 Cyst of kidney, acquired; Z90.49 Acquired absence of other specified parts of digestive tract | CPT/HCPCS: 76700; 76999 ==

== ENCOUNTER 2023-04-12 12:35 | Inpatient (IN) | payer MEDICARE, MEDICAID ==
[2023-04-12] MEDS ORDERED: Famotidine/PF 20 mg/2ml Vial ONE (12:52)
[2023-04-12] MEDS ORDERED: methylPREDNISolone Sod Succ/PF 125 MG/2 ML VIAL ONE (12:52)
[2023-04-12] MEDS ORDERED: diphenhydrAMINE 50 MG/ML VIAL ONE (12:52)
[2023-04-12] MEDS ORDERED: EPINEPHrine 1 MG/ML AMP ONE (12:54)
[2023-04-12 13:12] LABS: #Eosinphils 0.2 thou/uL (0.0-0.7); #Monocytes 0.3 thou/uL (0.11-0.59); #Neutrophils 1.8 thou/uL (1.40-6.50); %Basophils 0.2 % (0.0-1.0); %Eosinophils 3.9 % (0.0-10.0); %Lymphocytes 47.3 % (21.0-51.0); %Monocytes 7.9 % (0.0-10.0); %Neutrophils 40.7 % (42.0-75.0); Hematocrit 38.6 % (36.0-47.0); Mean Corpuscular HGB CONC 33.7 g/dL (32.0-36.0); Mean Corpuscular Volume 88.9 fl (78.0-98.0); Mean Platelet Volume 9.3 fL (7.4-10.4); Platelet Count 201 10x3/uL (130-400); RBC Distribution Width 14.9 % (11.5-14.5); Red Blood Cell (RBC) Count 4.34 mill/uL (4.20-5.40); White Blood Cell (WBC) Count 4.3 10x3/uL (4.8-10.8)
[2023-04-12 13:35] LABS: ALT (SGPT) 23 U/L (8-55); AST (SGOT) 22 U/L (5-34); Albumin 3.9 g/dL (3.4-4.8); Alkaline Phosphatase 120 U/L (40-110); Anion Gap 11 mmol/L (10-20); BUN (Urea Nitrogen) 16 mg/dL (9.8-20.1); Bilirubin, Total 0.2 mg/dL (0.2-1.2); Calc. Creatinine Clearance 0 mL/min (70-130); Calcium 9.7 mg/dL (7.8-10.44); Carbon Dioxide 26 mmol/L (23-31); Chloride 108 mmol/L (98-107); Estimated GFR 75; Globulin 3.8 g/dL (2.4-3.5); Glucose 190 mg/dL (80-115); Potassium 3.9 mmol/L (3.5-5.1); Protein, Total 7.7 g/dL (5.8-8.1); Sodium 141 mmol/L (136-145)
[2023-04-12] MEDS ORDERED: Senokot S 8.6-50 MG TAB PO PRN (14:09)
[2023-04-12] MEDS ORDERED: Guaifenesin DM 100-10/5 ML UDCUP PO PRN (14:09)
[2023-04-12] MEDS ORDERED: Acetaminophen 325 MG TAB PO PRN (14:09)
[2023-04-12] MEDS: Sodium Chloride 0.9% 1,000 ML IV SCH (15:11)
[2023-04-12 15:13] VITALS: BMI 38.9
[2023-04-12] MEDS ORDERED: diphenhydrAMINE 50 MG/ML VIAL IVP PRN (15:15)
[2023-04-12] MEDS: methylPREDNISolone Sod Succ 40 MG VIAL IVP SCH (17:05)
[2023-04-12] MEDS ORDERED: Glucagon 1 MG/ML KIT IM PRN (20:47)
[2023-04-12] MEDS ORDERED: Dextrose 50% Abboject 50 ML SYRINGE SLOW IVP PRN (20:47)
[2023-04-12] MEDS ORDERED: Dextrose 5% in Water 1,000 ML IV PRN (20:47)
[2023-04-12] MEDS: Famotidine/PF 20 mg/2ml Vial SLOW IVP SCH (20:51)
[2023-04-12] MEDS: HumaLOG 300 UNITS/3 ML VIAL SC PRN (20:59)
[2023-04-12] MEDS: Labetalol HCl 100 MG/20 ML VIAL SLOW IVP PRN (22:09)
[2023-04-13] MEDS: methylPREDNISolone Sod Succ 40 MG VIAL IVP SCH ×3 (00:58→22:04)
[2023-04-13] MEDS: Sodium Chloride 0.9% 1,000 ML IV SCH (01:03)
[2023-04-13] MEDS: Labetalol HCl 100 MG/20 ML VIAL SLOW IVP PRN ×2 (01:16→08:05)
[2023-04-13 04:28] LABS: #Monocytes 0.1 thou/uL (0.11-0.59); #Neutrophils 6.3 thou/uL (1.40-6.50); %Basophils 0.1 % (0.0-1.0); %Monocytes 1.2 % (0.0-10.0); %Neutrophils 81.7 % (42.0-75.0); Hematocrit 38.1 % (36.0-47.0); Hemoglobin 12.7 g/dL (12.0-16.0); Mean Corpuscular HGB CONC 33.3 g/dL (32.0-36.0); Mean Corpuscular Hemoglobin 29.3 pg (27.0-31.0); Mean Platelet Volume 9.7 fL (7.4-10.4); Platelet Count 190 10x3/uL (130-400); RBC Distribution Width 14.7 % (11.5-14.5); Red Blood Cell (RBC) Count 4.33 mill/uL (4.20-5.40); White Blood Cell (WBC) Count 7.7 10x3/uL (4.8-10.8)
[2023-04-13 04:53] LABS: Anion Gap 14 mmol/L (10-20); BUN (Urea Nitrogen) 14 mg/dL (9.8-20.1); Calc. Creatinine Clearance 98 mL/min (70-130); Calcium 9.2 mg/dL (7.8-10.44); Carbon Dioxide 20 mmol/L (23-31); Chloride 108 mmol/L (98-107); Estimated GFR 71; Glucose 282 mg/dL (80-115); Sodium 138 mmol/L (136-145)
[2023-04-13] MEDS: HumaLOG 300 UNITS/3 ML VIAL SC PRN ×4 (06:16→22:06)
[2023-04-13] MEDS: Famotidine/PF 20 mg/2ml Vial SLOW IVP SCH ×2 (08:05→22:04)
[2023-04-13] MEDS ORDERED: Spironolactone 25 MG TAB PO SCH (10:00)
[2023-04-13] MEDS ORDERED: cloNIDine 0.1 MG TAB PO SCH ×2 (11:45→21:00)
[2023-04-13] MEDS ORDERED: Carvedilol 25 MG TAB PO SCH (11:45)
[2023-04-13] MEDS: Carvedilol 25 MG TAB PO SCH (16:44)
[2023-04-13 17:29] LABS: Complement-C4 41.3 mg/dL (15-57)
[2023-04-14] MEDS: Labetalol HCl 100 MG/20 ML VIAL SLOW IVP PRN ×2 (06:43→10:53)
[2023-04-14] MEDS: HumaLOG 300 UNITS/3 ML VIAL SC PRN ×3 (06:43→21:36)
[2023-04-14] MEDS: methylPREDNISolone Sod Succ 40 MG VIAL IVP SCH (08:14)
[2023-04-14] MEDS: Carvedilol 25 MG TAB PO SCH ×2 (08:14→16:23)
[2023-04-14] MEDS: Spironolactone 25 MG TAB PO SCH (08:14)
[2023-04-14] MEDS: cloNIDine 0.2 MG TAB PO SCH ×2 (08:14→21:32)
[2023-04-14] MEDS: Famotidine/PF 20 mg/2ml Vial SLOW IVP SCH ×2 (08:14→21:32)
[2023-04-14] MEDS ORDERED: HumuLIN 70/30 (300 UNITS/3 ML VIAL) SC SCH (09:00)
[2023-04-14] MEDS: Minoxidil 2.5 MG TAB PO SCH ×2 (09:20→21:32)
[2023-04-14] MEDS: HumuLIN 70/30 100 Unit/ ml 10 ml Vial SC SCH ×2 (09:37→21:31)
[2023-04-15] MEDS ORDERED: Nitroglycerin 0.4 MG TAB (25 Tab Bottle) SL PRN (02:33)
[2023-04-15] MEDS ORDERED: Morphine 2 MG/ML VIAL SLOW IVP SCH (02:45)
[2023-04-15 04:17] LABS: ALT (SGPT) 21 U/L (8-55); AST (SGOT) 14 U/L (5-34); Albumin 3.5 g/dL (3.4-4.8); Alkaline Phosphatase 107 U/L (40-110); Anion Gap 11 mmol/L (10-20); BUN (Urea Nitrogen) 27 mg/dL (9.8-20.1); Bilirubin, Total 0.2 mg/dL (0.2-1.2); Calc. Creatinine Clearance 88 mL/min (70-130); Calcium 9.5 mg/dL (7.8-10.44); Carbon Dioxide 23 mmol/L (23-31); Chloride 105 mmol/L (98-107); Estimated GFR 65; Globulin 3.4 g/dL (2.4-3.5); Glucose 264 mg/dL (80-115); Potassium 3.8 mmol/L (3.5-5.1); Protein, Total 6.9 g/dL (5.8-8.1); Sodium 135 mmol/L (136-145)
[2023-04-15] MEDS: HumaLOG 300 UNITS/3 ML VIAL SC PRN ×3 (06:19→21:53)
[2023-04-15] MEDS: Minoxidil 2.5 MG TAB PO SCH ×2 (08:57→21:49)
[2023-04-15] MEDS: Carvedilol 25 MG TAB PO SCH ×2 (08:57→16:52)
[2023-04-15] MEDS: Spironolactone 25 MG TAB PO SCH (08:57)
[2023-04-15] MEDS: Famotidine/PF 20 mg/2ml Vial SLOW IVP SCH ×2 (08:57→21:50)
[2023-04-15] MEDS: cloNIDine 0.2 MG TAB PO SCH ×2 (08:57→21:49)
[2023-04-15] MEDS: HumuLIN 70/30 100 Unit/ ml 10 ml Vial SC SCH ×2 (09:11→21:50)
[2023-04-15] MEDS ORDERED: Sodium Chloride 0.9% 1,000 ML IV SCH (18:30)
[2023-04-15] MEDS ORDERED: methylPREDNISolone Sod Succ 40 MG VIAL IVP SCH (18:30)
[2023-04-15 21:52] VITALS: BP 133/83
[2023-04-16] MEDS: HumaLOG 300 UNITS/3 ML VIAL SC PRN ×2 (06:26→11:22)
[2023-04-16] MEDS: cloNIDine 0.2 MG TAB PO SCH (08:53)
[2023-04-16] MEDS: Famotidine/PF 20 mg/2ml Vial SLOW IVP SCH (08:53)
[2023-04-16] MEDS: Carvedilol 25 MG TAB PO SCH (08:53)
[2023-04-16] MEDS: Minoxidil 2.5 MG TAB PO SCH (08:53)
[2023-04-16] MEDS: Spironolactone 25 MG TAB PO SCH (08:53)
[2023-04-16] MEDS: HumuLIN 70/30 100 Unit/ ml 10 ml Vial SC SCH (08:56)
[2023-04-16 12:29] VITALS: TEMP 98.7
== END 2023-04-16 14:50 | disposition home or self-care (01) | DRG 916 ==
LOC: ERS 12:35 → CCU 14:13
PROVIDERS: ADMIT Hospitalist; ATTEND Family Medicine
DX: T78.3XXA Angioneurotic edema, initial encounter (principal); I11.0 Hypertensive heart disease with heart failure; I50.9 Heart failure, unspecified; E78.5 Hyperlipidemia, unspecified; Z96.653 Presence of artificial knee joint, bilateral; Z90.49 Acquired absence of other specified parts of digestive tract; Z90.89 Acquired absence of other organs; Z79.899 Other long term (current) drug therapy; K21.9 Gastro-esophageal reflux disease without esophagitis; M10.9 Gout, unspecified; Z98.51 Tubal ligation status; F32.A Depression, unspecified; T42.6X5A Adverse effect of other antiepileptic and sedative-hypnotic drugs, initial encounter; T44.3X5A Adverse effect of other parasympatholytics [anticholinergics and antimuscarinics] and spasmolytics, initial encounter; E66.01 Morbid (severe) obesity due to excess calories; Z68.38 Body mass index [BMI] 38.0-38.9, adult; I16.0 Hypertensive urgency; E11.65 Type 2 diabetes mellitus with hyperglycemia; G47.33 Obstructive sleep apnea (adult) (pediatric); I25.10 Atherosclerotic heart disease of native coronary artery without angina pectoris; Z90.710 Acquired absence of both cervix and uterus; R53.81 Other malaise
CPT/HCPCS: 36415; 36416; 80048; 80053; 83880; 84484; 85025; 86160; 86161; 93005; 93010; 96372; 96374; 96375; J0171; J1200; J1650; J1815; J2272; J2920; J2930; J7050; S0028

== ENCOUNTER 2023-07-10 10:50 | Inpatient (IN) | payer MEDICARE, MEDICAID ==
[~2023-07-10 10:50] MED LIST changes: -Iopamidol-370 76% 500 ML 1 ML ONE; +Iopamidol-370 76% 500 ML MDV (1 ML CHARGE) ONE
[2023-07-10 11:35] LABS: #Eosinphils 0.2 thou/uL (0.0-0.7); #Monocytes 0.4 thou/uL (0.11-0.59); #Neutrophils 1.8 thou/uL (1.40-6.50); %Basophils 0.5 % (0.0-1.0); %Eosinophils 5.2 % (0.0-10.0); %Lymphocytes 45.7 % (21.0-51.0); %Monocytes 8.8 % (0.0-10.0); %Neutrophils 39.6 % (42.0-75.0); Hematocrit 38.7 % (36.0-47.0); Hemoglobin 12.7 g/dL (12.0-16.0); Mean Corpuscular HGB CONC 32.8 g/dL (32.0-36.0); Mean Corpuscular Hemoglobin 29.7 pg (27.0-31.0); Mean Corpuscular Volume 90.6 fl (78.0-98.0); Mean Platelet Volume 9.8 fL (7.4-10.4); Platelet Count 228 10x3/uL (130-400); RBC Distribution Width 14.9 % (11.5-14.5); Red Blood Cell (RBC) Count 4.27 mill/uL (4.20-5.40); White Blood Cell (WBC) Count 4.4 10x3/uL (4.8-10.8)
[2023-07-10 11:49] LABS: Prothrombin Time 13.4 sec (12.0-14.7)
[2023-07-10 12:05] LABS: ALT (SGPT) 14 U/L (8-55); AST (SGOT) 15 U/L (5-34); Albumin 3.9 g/dL (3.4-4.8); Alkaline Phosphatase 100 U/L (40-110); Anion Gap 13 mmol/L (10-20); BUN (Urea Nitrogen) 15 mg/dL (9.8-20.1); Bilirubin, Total 0.4 mg/dL (0.2-1.2); Calc. Creatinine Clearance 0 mL/min (70-130); Calcium 9.9 mg/dL (7.8-10.44); Carbon Dioxide 26 mmol/L (23-31); Chloride 105 mmol/L (98-107); Estimated GFR 71; Globulin 3.7 g/dL (2.4-3.5); Glucose 203 mg/dL (80-115); Lipase 14 U/L (8-78); Magnesium 1.8 mg/dL (1.6-2.6); Potassium 4.2 mmol/L (3.5-5.1); Protein, Total 7.6 g/dL (5.8-8.1); Sodium 140 mmol/L (136-145); Troponin I 0.024 ng/mL (< 0.028)
[2023-07-10] MEDS ORDERED: Aspirin Chewable 81 MG TAB ONE (12:38)
[2023-07-10] MEDS ORDERED: Ondansetron PF 4 MG/2 ML Vial ONE (12:38)
[2023-07-10] MEDS ORDERED: Morphine 4 MG/ML VIAL ONE (12:38)
[2023-07-10] MEDS ORDERED: Dextrose 5% in Water 1,000 ML IV PRN (14:00)
[2023-07-10] MEDS ORDERED: Glucagon 1 MG/ML KIT IM PRN (14:00)
[2023-07-10] MEDS ORDERED: Ondansetron PF 4 MG/2 ML Vial IVP PRN (14:00)
[2023-07-10] MEDS ORDERED: Dextrose 50% Abboject 50 ML SYRINGE SLOW IVP PRN (14:00)
[2023-07-10] MEDS ORDERED: Ondansetron ODT 4 MG TAB PO PRN (14:00)
[2023-07-10] MEDS ORDERED: Senokot S 8.6-50 MG TAB PO PRN (14:08)
[2023-07-10 18:11] VITALS: BMI 37.3
[2023-07-10] MEDS ORDERED: FLU VACC QS2023(65UP)/MF59C/PF 60 MCG/0.5 ML SYRINGE IM ONE (18:30)
[2023-07-10] MEDS: Atorvastatin Calcium 40 MG TAB PO SCH (20:07)
[2023-07-10] MEDS: Docusate 100 MG CAP PO SCH (20:07)
[2023-07-11 05:25] LABS: #Eosinphils 0.3 thou/uL (0.0-0.7); #Monocytes 0.5 thou/uL (0.11-0.59); #Neutrophils 1.9 thou/uL (1.40-6.50); %Basophils 0.4 % (0.0-1.0); %Eosinophils 5.4 % (0.0-10.0); %Lymphocytes 46.7 % (21.0-51.0); %Neutrophils 37.3 % (42.0-75.0); Hematocrit 36.6 % (36.0-47.0); Hemoglobin 11.9 g/dL (12.0-16.0); Mean Corpuscular HGB CONC 32.5 g/dL (32.0-36.0); Mean Corpuscular Hemoglobin 29.7 pg (27.0-31.0); Mean Corpuscular Volume 91.3 fl (78.0-98.0); Mean Platelet Volume 9.8 fL (7.4-10.4); Platelet Count 214 10x3/uL (130-400); RBC Distribution Width 15.1 % (11.5-14.5); Red Blood Cell (RBC) Count 4.01 mill/uL (4.20-5.40)
[2023-07-11 05:54] LABS: Anion Gap 13 mmol/L (10-20); BUN (Urea Nitrogen) 16 mg/dL (9.8-20.1); Calc. Creatinine Clearance 96 mL/min (70-130); Calcium 9.5 mg/dL (7.8-10.44); Carbon Dioxide 25 mmol/L (23-31); Chloride 105 mmol/L (98-107); Estimated GFR 74; Glucose 162 mg/dL (80-115); Sodium 139 mmol/L (136-145)
[2023-07-11] MEDS ORDERED: Spironolactone 25 MG TAB PO SCH (08:30)
[2023-07-11] MEDS: Docusate 100 MG CAP PO SCH ×2 (09:06→20:23)
[2023-07-11] MEDS: Aspirin 81 mg Enteric Coated Tablet PO SCH (09:07)
[2023-07-11] MEDS: Minoxidil 2.5 MG TAB PO SCH ×2 (09:07→20:23)
[2023-07-11] MEDS: FLUoxetine HCl 20 MG CAP PO SCH (09:08)
[2023-07-11] MEDS: Carvedilol 25 MG TAB PO SCH ×2 (09:08→20:23)
[2023-07-11] MEDS: Cholecalciferol 1,000 UNITS (25 MCG) TAB PO SCH (09:08)
[2023-07-11] MEDS: Insulin Glargine 30 UNITS/0.3 ML VIAL SC SCH ×2 (09:08→17:18)
[2023-07-11] MEDS: Allopurinol 100 MG TAB PO SCH (09:08)
[2023-07-11] MEDS: Atorvastatin Calcium 40 MG TAB PO SCH (20:23)
[2023-07-12] MEDS: Acetaminophen 325 MG TAB PO PRN ×2 (04:00→08:53)
[2023-07-12] MEDS: Aspirin 81 mg Enteric Coated Tablet PO SCH (08:48)
[2023-07-12] MEDS: Allopurinol 100 MG TAB PO SCH (08:48)
[2023-07-12] MEDS: FLUoxetine HCl 20 MG CAP PO SCH (08:48)
[2023-07-12] MEDS: Minoxidil 2.5 MG TAB PO SCH ×2 (08:48→20:38)
[2023-07-12] MEDS: Carvedilol 25 MG TAB PO SCH ×2 (08:49→20:38)
[2023-07-12] MEDS: Docusate 100 MG CAP PO SCH ×2 (08:49→20:38)
[2023-07-12] MEDS: Spironolactone 25 MG TAB PO SCH (08:49)
[2023-07-12] MEDS: Cholecalciferol 1,000 UNITS (25 MCG) TAB PO SCH (08:49)
[2023-07-12] MEDS: Insulin Glargine 30 UNITS/0.3 ML VIAL SC SCH ×2 (08:49→16:02)
[2023-07-12] MEDS: Atorvastatin Calcium 40 MG TAB PO SCH (20:38)
[2023-07-13] MEDS: Insulin Glargine 30 UNITS/0.3 ML VIAL SC SCH ×2 (10:31→18:22)
[2023-07-13] MEDS: Spironolactone 25 MG TAB PO SCH (10:38)
[2023-07-13] MEDS: Allopurinol 100 MG TAB PO SCH (10:38)
[2023-07-13] MEDS: Aspirin 81 mg Enteric Coated Tablet PO SCH (10:38)
[2023-07-13] MEDS: Carvedilol 25 MG TAB PO SCH ×2 (10:38→20:16)
[2023-07-13] MEDS: Docusate 100 MG CAP PO SCH ×2 (10:39→20:16)
[2023-07-13] MEDS: Cholecalciferol 1,000 UNITS (25 MCG) TAB PO SCH (10:39)
[2023-07-13] MEDS: Minoxidil 2.5 MG TAB PO SCH ×2 (10:39→20:16)
[2023-07-13] MEDS: FLUoxetine HCl 20 MG CAP PO SCH (10:39)
[2023-07-13] MEDS: Atorvastatin Calcium 40 MG TAB PO SCH (20:16)
[2023-07-14] MEDS ORDERED: Iopamidol 370 76% 100 ML VIAL ONE (10:07)
[2023-07-14] MEDS: Spironolactone 25 MG TAB PO SCH (10:38)
[2023-07-14] MEDS: Minoxidil 2.5 MG TAB PO SCH ×2 (10:38→22:24)
[2023-07-14] MEDS: Docusate 100 MG CAP PO SCH ×2 (10:38→22:33)
[2023-07-14] MEDS: Carvedilol 25 MG TAB PO SCH ×2 (10:39→22:24)
[2023-07-14] MEDS: Allopurinol 100 MG TAB PO SCH (10:39)
[2023-07-14] MEDS: FLUoxetine HCl 20 MG CAP PO SCH (10:39)
[2023-07-14] MEDS: Cholecalciferol 1,000 UNITS (25 MCG) TAB PO SCH (10:39)
[2023-07-14] MEDS: Aspirin 81 mg Enteric Coated Tablet PO SCH (10:39)
[2023-07-14] MEDS: Insulin Glargine 30 UNITS/0.3 ML VIAL SC SCH ×2 (10:40→17:39)
[2023-07-14] MEDS ORDERED: diphenhydrAMINE 25 MG CAP PO PRN (16:57)
[2023-07-14] MEDS ORDERED: Gabapentin 100 MG CAP PO SCH (21:00)
[2023-07-14] MEDS: Atorvastatin Calcium 40 MG TAB PO SCH (22:24)
[2023-07-15] MEDS: Insulin Glargine 30 UNITS/0.3 ML VIAL SC SCH (08:29)
[2023-07-15] MEDS: Minoxidil 2.5 MG TAB PO SCH (08:35)
[2023-07-15] MEDS: Docusate 100 MG CAP PO SCH (08:35)
[2023-07-15] MEDS: Spironolactone 25 MG TAB PO SCH (08:35)
[2023-07-15] MEDS: Carvedilol 25 MG TAB PO SCH (08:35)
[2023-07-15] MEDS: Allopurinol 100 MG TAB PO SCH (08:35)
[2023-07-15] MEDS: FLUoxetine HCl 20 MG CAP PO SCH (08:35)
[2023-07-15] MEDS: Aspirin 81 mg Enteric Coated Tablet PO SCH (08:35)
[2023-07-15] MEDS: Cholecalciferol 1,000 UNITS (25 MCG) TAB PO SCH (08:35)
[2023-07-15 12:53] VITALS: BP 118/56; TEMP 98.7
== END 2023-07-15 14:20 | disposition home or self-care (01) | DRG 552 ==
LOC: ERS 10:50 → 2SW 12:54 → OBSVTOIN 07-12 14:49
PROVIDERS: ADMIT Internal Medicine; ATTEND Internal Medicine
DX: M51.16 Intervertebral disc disorders with radiculopathy, lumbar region (principal); I50.32 Chronic diastolic (congestive) heart failure; I11.0 Hypertensive heart disease with heart failure; E11.51 Type 2 diabetes mellitus with diabetic peripheral angiopathy without gangrene; E78.5 Hyperlipidemia, unspecified; M32.9 Systemic lupus erythematosus, unspecified; F31.9 Bipolar disorder, unspecified; K21.9 Gastro-esophageal reflux disease without esophagitis; M10.9 Gout, unspecified; G89.29 Other chronic pain; R53.81 Other malaise; Z96.653 Presence of artificial knee joint, bilateral; M48.04 Spinal stenosis, thoracic region; M48.061 Spinal stenosis, lumbar region without neurogenic claudication; Z79.899 Other long term (current) drug therapy; Z90.89 Acquired absence of other organs; Z90.710 Acquired absence of both cervix and uterus; Z98.890 Other specified postprocedural states; Z95.820 Peripheral vascular angioplasty status with implants and grafts; Z83.3 Family history of diabetes mellitus; Z82.49 Family history of ischemic heart disease and other diseases of the circulatory system; Z98.51 Tubal ligation status; Z86.73 Personal history of transient ischemic attack (TIA), and cerebral infarction without residual deficits; Z79.4 Long term (current) use of insulin; Z79.82 Long term (current) use of aspirin; Z88.8 Allergy status to other drugs, medicaments and biological substances
CPT/HCPCS: 36415; 36416; 70450; 70496; 70498; 70551; 71045; 72141; 72146; 72148; 75635; 80048; 80053; 83690; 83735; 84443; 84484; 85025; 85610; 85730; 93005; 94760; 96374; 96375; J1650; J1815; J2270; J2405; Q9967

== ENCOUNTER 2023-10-20 | Outpatient (CLI) | payer MEDICARE, MEDICAID | END 2023-10-20 09:51 | disposition home or self-care (01) | DX: Z01.818 Encounter for other preprocedural examination (principal); K43.9 Ventral hernia without obstruction or gangrene; M32.9 Systemic lupus erythematosus, unspecified; Z86.73 Personal history of transient ischemic attack (TIA), and cerebral infarction without residual deficits ==

== ENCOUNTER 2023-10-27 06:03 | Day surgery (SDC) | payer MEDICARE, MEDICAID ==
[2023-10-20 11:01] VITALS: BMI 37.0
[2023-10-27] MEDS ORDERED: CEFAZOLIN 2 GM VIAL ONE (06:45)
[2023-10-27] MEDS ORDERED: Sodium Chloride 0.9% 100 ML ONE (06:45)
[2023-10-27] MEDS ORDERED: fentaNYL PF 100 MCG/2 ML SYRINGE ONE (07:05)
[2023-10-27] MEDS ORDERED: EPINEPHrine 1 MG/ML VIAL ONE (07:14)
[2023-10-27] MEDS ORDERED: Bupivacaine 0.25% HCL 30 ML VIAL ONE (07:14)
[2023-10-27] MEDS ORDERED: Rocuronium Bromide 10 MG/ML (10ML VIAL) ONE (07:43)
[2023-10-27] MEDS ORDERED: Lidocaine 1% PF 5 ML VIAL ONE (07:43)
[2023-10-27] MEDS ORDERED: PROPOFOL 20 ML ONE (07:43)
[2023-10-27] MEDS ORDERED: ePHEDrine Sulfate 50 MG/10 ML VIAL ONE (08:00)
[2023-10-27] MEDS ORDERED: Glycopyrrolate 0.2 MG/ML 5 ML SYRINGE ONE (08:06)
[2023-10-27] MEDS ORDERED: Albuterol HFA (OR) 200 PUFF INH ONE (08:06)
[2023-10-27] MEDS ORDERED: Dexamethasone 4 mg/ml Vial ONE (08:06)
[2023-10-27] MEDS ORDERED: PHENYLEPHRINE-NS 100 MCG/ML 10 ML SYRINGE ONE (08:06)
[2023-10-27] MEDS ORDERED: Ondansetron PF 4 MG/2 ML Vial ONE (08:48)
[2023-10-27] MEDS ORDERED: SUGAMMADEX SODIUM 200 MG/2 ML VIAL ONE ×2 (08:49→09:15)
[2023-10-27] MEDS ORDERED: fentaNYL 50 mcg/mL 1 mL Vial ONE (09:57)
[2023-10-27] MEDS ORDERED: HYDROcodone/Acetaminophen 5/325 mg Tablet ONE (10:54)
== END 2023-10-27 12:00 | disposition home or self-care (01) ==
LOC: SDC 06:03
PROVIDERS: ATTEND Surgery
PROC: 0WUF4JZ Supplement Abdominal Wall with Synthetic Substitute, Percutaneous Endoscopic Approach (ICD-10-PCS; principal; 2023-10-27)
DX: K43.9 Ventral hernia without obstruction or gangrene (principal); N64.4 Mastodynia; I10 Essential (primary) hypertension; E78.00 Pure hypercholesterolemia, unspecified; E11.9 Type 2 diabetes mellitus without complications; M32.9 Systemic lupus erythematosus, unspecified; F41.9 Anxiety disorder, unspecified; M06.9 Rheumatoid arthritis, unspecified; I25.10 Atherosclerotic heart disease of native coronary artery without angina pectoris; K21.9 Gastro-esophageal reflux disease without esophagitis; F31.9 Bipolar disorder, unspecified; K75.81 Nonalcoholic steatohepatitis (NASH); Z96.653 Presence of artificial knee joint, bilateral; Z90.49 Acquired absence of other specified parts of digestive tract; Z90.89 Acquired absence of other organs; Z90.710 Acquired absence of both cervix and uterus; Z79.899 Other long term (current) drug therapy; Z88.8 Allergy status to other drugs, medicaments and biological substances; Z88.6 Allergy status to analgesic agent; Z79.82 Long term (current) use of aspirin
CPT/HCPCS: 49593; 82962; A4314; C1781; J0171; J3010; 36416; J0665; J1100; J2405; J2704; J3490

== ENCOUNTER 2023-12-09 10:11 | Outpatient (CLI) | payer MEDICARE, MEDICAID ==
[2023-12-09] MEDS ORDERED: Iopamidol 370 76% 100 ML VIAL ONE (10:36)
== END 2023-12-09 10:12 | disposition home or self-care (01) ==
LOC: BICCT 10:11
PROVIDERS: ATTEND Internal Medicine
DX: R22.2 Localized swelling, mass and lump, trunk (principal)
CPT/HCPCS: 71260; Q9967

== ENCOUNTER 2024-01-18 13:12 | Inpatient (IN) | payer MEDICARE, MEDICAID ==
[2024-01-18] MEDS ORDERED: EPINEPHrine 1 MG/ML VIAL ONE ×2 (14:19→15:00)
[2024-01-18] MEDS ORDERED: diphenhydrAMINE 50 MG/ML VIAL ONE (14:21)
[2024-01-18] MEDS ORDERED: methylPREDNISolone Sod Succ/PF 125 MG/2 ML VIAL ONE (14:21)
[2024-01-18] MEDS ORDERED: Famotidine/PF 20 mg/2ml Vial ONE (14:21)
[2024-01-18] MEDS ORDERED: Tranexamic Acid 1,000 MG/10 ML VIAL ONE (15:00)
[2024-01-18] MEDS ORDERED: Etomidate 40 MG (20 mL) VIAL ONE (15:16)
[2024-01-18] MEDS ORDERED: Rocuronium Bromide 10 MG/ML (10ML VIAL) ONE (15:16)
[2024-01-18] MEDS ORDERED: Propofol 1,000 MG/100 ML VIAL IV ONE ×2 (15:21→15:22)
[2024-01-18 15:34] LABS: #Basophils Less than 0.03 10x3/uL (0.0-0.2); %Basophils 0.2 % (0.0-1.0); %Eosinophils 4.6 % (0.0-10.0); %Lymphocytes 46.9 % (21.0-51.0); %Monocytes 7.2 % (0.0-10.0); %Neutrophils 40.9 % (42.0-75.0); Hemoglobin 13.4 g/dL (12.0-16.0); Mean Corpuscular HGB CONC 32.7 g/dL (32.0-36.0); Mean Corpuscular Hemoglobin 28.9 pg (27.0-31.0); Mean Corpuscular Volume 88.6 fL (78.0-98.0); Mean Platelet Volume 9.6 fL (7.4-10.4); Platelet Count 201 10x3/uL (130-400); RBC Distribution Width 17.2 % (11.5-14.5); Red Blood Cell (RBC) Count 4.63 mill/uL (4.20-5.40)
[2024-01-18 15:36] LABS: PTT 28.8 sec (22.9-36.1)
[2024-01-18 15:40] LABS: ALT (SGPT) 19 U/L (8-55); AST (SGOT) 26 U/L (5-34); Albumin 3.5 g/dL (3.4-4.8); Alkaline Phosphatase 130 U/L (40-110); Anion Gap 14 mmol/L (10-20); BUN (Urea Nitrogen) 14 mg/dL (9.8-20.1); Calc. Creatinine Clearance 0 mL/min (70-130); Calcium 9.6 mg/dL (7.8-10.44); Carbon Dioxide 23 mmol/L (23-31); Chloride 106 mmol/L (98-107); Estimated GFR 86; Globulin 4.5 g/dL (2.4-3.5); Glucose 142 mg/dL (80-115); Potassium 4.5 mmol/L (3.5-5.1); Sodium 138 mmol/L (136-145)
[2024-01-18 15:42] LABS: Actual Bicarbonate (HCO3a) 23.7 mEq/L (22-28); Analyzer IN Cardio ER; Base Excess (BEa) -0.5 mEq/L (-2.0 to +3.0); CO2 Tension 37.6 mmHg (35.0-45.0); Carboxyhemoglobin (COHb) 0.3 gm% (0.0-3.0); Hematocrit-ABG 37 % (36.0-47.0); Hemoglobin (Hb) 12.6 g/dL (12.0-16.0); O2 Tension (PaO2), arterial 441.9 mmHg (> 70.0); Potassium - ABG Lab 3.75 mmol/L (3.70-5.30); pH, Arterial 7.418 (7.35-7.45)
[2024-01-18 15:43] LABS: Troponin I 0.016 ng/mL (< 0.028)
[2024-01-18 15:47] LABS: Puncture Site Right Radial
[2024-01-18] MEDS ORDERED: Fentanyl CADD 100 ML IV SCH ×2 (16:00→17:00)
[2024-01-18] MEDS ORDERED: niCARdipine 25 MG/10 ML SDV ONE ×2 (16:12→16:14)
[2024-01-18] MEDS ORDERED: Ondansetron PF 4 MG/2 ML Vial IVP PRN (16:19)
[2024-01-18] MEDS ORDERED: Acetaminophen 650 MG Suppository PR PRN (16:19)
[2024-01-18] MEDS ORDERED: Acetaminophen 325 MG TAB PO PRN (16:19)
[2024-01-18] MEDS ORDERED: Electrolyte Replacement Protocol 1 EACH IVPB SCH (16:22)
[2024-01-18] MEDS ORDERED: Ventilator Sedation Protocol 1 EACH FS SCH (16:30)
[2024-01-18 16:36] LABS: Bilirubin, Total 0.3 mg/dL (0.2-1.2); Magnesium 1.7 mg/dL (1.6-2.6)
[2024-01-18 16:40] LABS: Bacteria/HPF None Seen HPF (None Seen); Bilirubin Negative (Negative); Blood, Urine Trace (Negative); CAUTI Indications for Culture Alt mental st,lethar; Clarity Clear (Clear); Glucose, Urine (Dipstick) Normal (Negative); Ketone, Urine Negative (Negative); Leukocyte Negative Leu/uL (Negative); Nitrite Negative (Negative); Protein, Urine (Dipstick) 100 mg/dL (Neg-Trace); RBC/HPF 0-3 HPF (0-3); Specific Gravity, Urine 1.007 (1.002-1.036); Squamous Epithelial 0-3 HPF (0-3); Urobilinogen Normal mg/dL (Less than 2); WBC/HPF None Seen HPF (0-3); pH, Urine 7.5 (5.0-9.0)
[2024-01-18 16:42] LABS: Urine Culture Reflex No No
[2024-01-18] MEDS ORDERED: Propofol BOLUS 1,000 MG/100 ML VIAL IV PRN (17:00)
[2024-01-18] MEDS ORDERED: Fentanyl BOLUS 250 ML IVPB PRN (17:00)
[2024-01-18] MEDS ORDERED: Morphine 2 MG/ML VIAL SLOW IVP PRN (17:00)
[2024-01-18] MEDS ORDERED: Lorazepam 2 MG/ML VIAL SLOW IVP PRN (17:00)
[2024-01-18] MEDS ORDERED: DISCONTINUE PREVIOUS NARCOTIC PAIN MEDICATIONS AND BENZODIAZEPINES FS SCH (17:00)
[2024-01-18] MEDS ORDERED: Ipratropium/Albuterol 3 ML NEB NEB PRN (17:42)
[2024-01-18] MEDS ORDERED: Glucagon 1 MG/ML KIT IM PRN (17:44)
[2024-01-18] MEDS ORDERED: Dextrose 5% in Water 1,000 ML IV PRN (17:44)
[2024-01-18] MEDS ORDERED: Dextrose 50% Abboject 50 ML SYRINGE SLOW IVP PRN (17:44)
[2024-01-18 18:56] LABS: Complement-C3 175 mg/dL (83-193); Complement-C4 44 mg/dL (15-57)
[2024-01-18] MEDS: diphenhydrAMINE 50 MG in Sodium Chloride 0.9% 50 ML IVPB SCH (19:37)
[2024-01-18] MEDS: Propofol 1,000 MG/100 ML VIAL IV PRN (19:38)
[2024-01-18] MEDS: methylPREDNISolone Sod Succ 40 MG VIAL IVP SCH (19:38)
[2024-01-18] MEDS: Famotidine/PF 20 mg/2ml Vial SLOW IVP SCH (19:38)
[2024-01-18] MEDS: Famotidine 20 MG TAB PO SCH (19:45)
[2024-01-18] MEDS: GLYCOPYRROLATE/PF 0.2 MG/ML VIAL SLOW IVP SCH (19:50)
[2024-01-18] MEDS: Furosemide 40 MG (4 mL) VIAL SLOW IVP SCH (19:51)
[2024-01-18] MEDS: niCARdipine 25 MG in Sodium Chloride 0.9% 250 ML 250 ML IVPB PRN (20:14)
[2024-01-18] MEDS: Magnesium 2 GM/50 ML(in water) 2 GM in Premix 1 BAG IVPB SCH (22:28)
[2024-01-19 03:42] LABS: #Basophils Less than 0.03 10x3/uL (0.0-0.2); #Eosinphils Less than 0.03 10x3/uL (0.0-0.7); %Lymphocytes 15.2 % (21.0-51.0); %Neutrophils 83.4 % (42.0-75.0); Hematocrit 35.2 % (36.0-47.0); Hemoglobin 11.7 g/dL (12.0-16.0); Mean Corpuscular HGB CONC 33.2 g/dL (32.0-36.0); Mean Corpuscular Hemoglobin 29.5 pg (27.0-31.0); Mean Corpuscular Volume 88.9 fL (78.0-98.0); Mean Platelet Volume 9.2 fL (7.4-10.4); Platelet Count 192 10x3/uL (130-400); RBC Distribution Width 16.4 % (11.5-14.5); Red Blood Cell (RBC) Count 3.96 mill/uL (4.20-5.40)
[2024-01-19 04:06] LABS: ALT (SGPT) 38 U/L (8-55); AST (SGOT) 43 U/L (5-34); Albumin 3.1 g/dL (3.4-4.8); Alkaline Phosphatase 142 U/L (40-110); Anion Gap 15 mmol/L (10-20); BUN (Urea Nitrogen) 18 mg/dL (9.8-20.1); Bilirubin, Total 0.4 mg/dL (0.2-1.2); Calc. Creatinine Clearance 99 mL/min (70-130); Calcium 9.1 mg/dL (7.8-10.44); Carbon Dioxide 21 mmol/L (23-31); Chloride 106 mmol/L (98-107); Estimated GFR 74; Globulin 3.8 g/dL (2.4-3.5); Glucose 219 mg/dL (80-115); Potassium 3.6 mmol/L (3.5-5.1); Protein, Total 6.9 g/dL (5.8-8.1); Sodium 138 mmol/L (136-145)
[2024-01-19] MEDS: Insulin Regular, Human 100 UNIT/ML 10 ML VIAL SC PRN (04:57)
[2024-01-19 05:17] VITALS: BMI 38.2
[2024-01-19 07:13] LABS: Actual Bicarbonate (HCO3a) 22.8 mEq/L (22-28); Base Excess (BEa) -1.4 mEq/L (-2.0 to +3.0); CO2 Tension 36.8 mmHg (35.0-45.0); Calcium, Ionized (arterial) 1.19 mmol/L (1.12-1.30); Carboxyhemoglobin (COHb) 0.6 gm% (0.0-3.0); Hematocrit-ABG 40 % (36.0-47.0); Hemoglobin (Hb) 13.6 g/dL (12.0-16.0); Potassium - ABG Lab 3.83 mmol/L (3.70-5.30)
[2024-01-19 07:14] LABS: Puncture Site LRA
[2024-01-19] MEDS ORDERED: Dexmedetomidine In 0.9 % NaCl 100 ML IVPB SCH (09:00)
[2024-01-19] MEDS: Amlodipine 10 MG TAB PO SCH (09:22)
[2024-01-19] MEDS: Aspirin Chewable 81 MG TAB PO SCH (09:22)
[2024-01-19] MEDS: Enoxaparin 40 MG (0.4 mL) SYRINGE SC SCH (09:22)
[2024-01-19 09:32] LABS: Immunoglob - A (Total IgA) 343 mg/dL (69-517); Immunoglob - G (Total IgG) 1735 mg/dL (552-1631); Immunoglob - M (Total IgM) 63 mg/dL (33-293)
[2024-01-19 17:01] VITALS: BMI 38.2
[2024-01-19] MEDS: Aspirin 81 mg Enteric Coated Tablet PO SCH (19:44)
[2024-01-19] MEDS: Atorvastatin Calcium 40 MG TAB PO SCH (20:02)
[2024-01-20 04:01] LABS: #Basophils Less than 0.03 10x3/uL (0.0-0.2); #Eosinphils Less than 0.03 10x3/uL (0.0-0.7); %Lymphocytes 8.6 % (21.0-51.0); %Monocytes 2.2 % (0.0-10.0); %Neutrophils 88.4 % (42.0-75.0); Hematocrit 35.2 % (36.0-47.0); Hemoglobin 11.7 g/dL (12.0-16.0); Mean Corpuscular HGB CONC 33.2 g/dL (32.0-36.0); Mean Corpuscular Hemoglobin 29.8 pg (27.0-31.0); Mean Corpuscular Volume 89.6 fL (78.0-98.0); Mean Platelet Volume 9.5 fL (7.4-10.4); Platelet Count 181 10x3/uL (130-400); RBC Distribution Width 17.1 % (11.5-14.5); Red Blood Cell (RBC) Count 3.93 mill/uL (4.20-5.40)
[2024-01-20 04:15] LABS: Anion Gap 13 mmol/L (10-20); BUN (Urea Nitrogen) 29 mg/dL (9.8-20.1); Calc. Creatinine Clearance 98 mL/min (70-130); Calcium 9.3 mg/dL (7.8-10.44); Carbon Dioxide 24 mmol/L (23-31); Chloride 108 mmol/L (98-107); Estimated GFR 73; Glucose 227 mg/dL (80-115); Hemoglobin A1c 7.2 % (4.0-6.0); Potassium 4.5 mmol/L (3.5-5.1); Sodium 140 mmol/L (136-145)
[2024-01-20] MEDS: cloNIDine 0.1 MG TAB PO SCH ×2 (12:08→20:54)
[2024-01-20] MEDS: DC Sedation Protocol FS ONE (12:16)
[2024-01-20] MEDS: HumuLIN 70/30 100 Unit/ml 10 ml Vial SC SCH (15:58)
[2024-01-20] MEDS ORDERED: HumuLIN 70/30 (300 UNITS/3 ML VIAL) SC SCH (16:30)
[2024-01-20] MEDS: ATORVASTATIN CALCIUM 40 MG PO SCH (20:54)
[2024-01-20] MEDS ORDERED: Minoxidil 2.5 MG TAB PO SCH (21:00)
[2024-01-21 04:08] LABS: #Basophils Less than 0.03 10x3/uL (0.0-0.2); #Eosinphils Less than 0.03 10x3/uL (0.0-0.7); %Basophils 0.1 % (0.0-1.0); %Lymphocytes 7.7 % (21.0-51.0); %Neutrophils 88.4 % (42.0-75.0); Hematocrit 33.4 % (36.0-47.0); Hemoglobin 11.2 g/dL (12.0-16.0); Mean Corpuscular HGB CONC 33.5 g/dL (32.0-36.0); Mean Corpuscular Hemoglobin 29.1 pg (27.0-31.0); Mean Corpuscular Volume 86.8 fL (78.0-98.0); Mean Platelet Volume 9.4 fL (7.4-10.4); Platelet Count 183 10x3/uL (130-400); RBC Distribution Width 16.8 % (11.5-14.5); Red Blood Cell (RBC) Count 3.85 mill/uL (4.20-5.40)
[2024-01-21 04:25] LABS: Anion Gap 9 mmol/L (10-20); BUN (Urea Nitrogen) 28 mg/dL (9.8-20.1); Calc. Creatinine Clearance 93 mL/min (70-130); Calcium 9.1 mg/dL (7.8-10.44); Carbon Dioxide 23 mmol/L (23-31); Chloride 108 mmol/L (98-107); Estimated GFR 72; Glucose 326 mg/dL (80-115); Potassium 4.3 mmol/L (3.5-5.1); Sodium 136 mmol/L (136-145)
[2024-01-21] MEDS: FLUoxetine HCl 20 MG CAP PO SCH (08:12)
[2024-01-21] MEDS: Spironolactone 25 MG TAB PO SCH (08:16)
[2024-01-21] MEDS: Carvedilol 25 MG TAB PO SCH (08:16)
[2024-01-21] MEDS ORDERED: HumuLIN 70/30 100 Unit/ml 10 ml Vial SC SCH (08:34)
[2024-01-21] MEDS: Furosemide 40 MG (4 mL) VIAL SLOW IVP SCH (11:20)
[2024-01-21] MEDS: HumuLIN 70/30 100 Unit/ml 10 ml Vial SC SCH (16:00)
[2024-01-23] MEDS: Labetalol HCl 100 MG/20 ML VIAL SLOW IVP PRN (03:53)
[2024-01-23 04:36] LABS: #Basophils Less than 0.03 10x3/uL (0.0-0.2); %Lymphocytes 39.8 % (21.0-51.0); %Monocytes 7.7 % (0.0-10.0); Hematocrit 37.4 % (36.0-47.0); Hemoglobin 12.4 g/dL (12.0-16.0); Mean Corpuscular HGB CONC 33.2 g/dL (32.0-36.0); Mean Corpuscular Hemoglobin 29.5 pg (27.0-31.0); Mean Corpuscular Volume 88.8 fL (78.0-98.0); Mean Platelet Volume 9.5 fL (7.4-10.4); Platelet Count 212 10x3/uL (130-400); RBC Distribution Width 16.6 % (11.5-14.5); Red Blood Cell (RBC) Count 4.21 mill/uL (4.20-5.40)
[2024-01-23 04:58] LABS: Anion Gap 12 mmol/L (10-20); BUN (Urea Nitrogen) 26 mg/dL (9.8-20.1); Calc. Creatinine Clearance 103 mL/min (70-130); Carbon Dioxide 25 mmol/L (23-31); Chloride 107 mmol/L (98-107); Estimated GFR 84; Glucose 72 mg/dL (80-115); Potassium 3.2 mmol/L (3.5-5.1); Sodium 141 mmol/L (136-145)
[2024-01-23] MEDS: cloNIDine 0.2 MG TAB PO SCH (09:05)
[2024-01-23] MEDS: Potassium Chloride 20 MEQ TAB PO SCH (09:06)
[2024-01-24 10:04] LABS: Magnesium 1.7 mg/dL (1.6-2.6); Potassium 3.9 mmol/L (3.5-5.1)
[2024-01-24] MEDS: Magnesium 2 GM/50 ML(in water) 2 GM in Premix 1 BAG IVPB SCH (11:39)
[2024-01-24] MEDS ORDERED: Electrolyte Replacement Protocol FS PRN (11:45)
[2024-01-24 15:29] VITALS: BP 129/84; TEMP 99.3
== END 2024-01-24 16:06 | disposition home or self-care (01) | DRG 915 ==
LOC: ERS 13:12 → CCU 17:17 → SJJU 01-22 11:52 → MSONC 01-22 20:28
PROVIDERS: ADMIT Family Medicine; ATTEND Internal Medicine
PROC: 0BH17EZ Insertion of Endotracheal Airway into Trachea, Via Natural or Artificial Opening (ICD-10-PCS; principal; 2024-01-18)
PROC: 5A1935Z Respiratory Ventilation, Less than 24 Consecutive Hours (ICD-10-PCS; 2024-01-18)
DX: T78.3XXA Angioneurotic edema, initial encounter (principal); I50.33 Acute on chronic diastolic (congestive) heart failure; J96.01 Acute respiratory failure with hypoxia; I16.1 Hypertensive emergency; E11.51 Type 2 diabetes mellitus with diabetic peripheral angiopathy without gangrene; T50.4X5A Adverse effect of drugs affecting uric acid metabolism, initial encounter; I11.0 Hypertensive heart disease with heart failure; E78.5 Hyperlipidemia, unspecified; F31.9 Bipolar disorder, unspecified; K21.9 Gastro-esophageal reflux disease without esophagitis; G89.29 Other chronic pain; M54.9 Dorsalgia, unspecified; M10.9 Gout, unspecified; Z90.710 Acquired absence of both cervix and uterus; Z79.4 Long term (current) use of insulin; Z79.82 Long term (current) use of aspirin; Z79.899 Other long term (current) drug therapy
CPT/HCPCS: 31500; 36415; 36416; 36556; 36600; 51702; 71045; 80048; 80053; 81001; 82805; 83036; 83690; 83735; 83880; 84132; 84145; 84443; 84484; 85025; 85610; 85730; 86160; 86161; 86850; 86900; 86901; 93005; 94002; 94003; 96374; 96375; 99292; J0171; J1200; J1650; J1815; J1940; J2060; J2704; J2920; J2930; J3010; J3475; J3490; J7050; S0028

== ENCOUNTER 2024-07-31 11:22 | Outpatient (CLI) | payer MEDICARE, MEDICAID | END 2024-07-31 11:23 | disposition home or self-care (01) | LOC: BICULT 11:22 | PROVIDERS: ATTEND Internal Medicine | DX: M79.602 Pain in left arm (principal) | CPT/HCPCS: 76999 ==

== ENCOUNTER 2024-09-05 12:34 | Outpatient (CLI) | payer MEDICARE, MEDICAID | END 2024-09-05 12:35 | disposition home or self-care (01) | LOC: BICMAMMO 12:34 | PROVIDERS: ATTEND Internal Medicine | DX: Z12.31 Encounter for screening mammogram for malignant neoplasm of breast (principal); Z91.89 Other specified personal risk factors, not elsewhere classified | CPT/HCPCS: 77063; 77067 ==

== ENCOUNTER 2025-02-06 09:42 | Outpatient (CLI) | payer MEDICARE, MEDICAID | END 2025-02-06 09:43 | disposition home or self-care (01) | LOC: RAD 09:42 | PROVIDERS: ATTEND Internal Medicine Gastroenterology | DX: R13.10 Dysphagia, unspecified (principal); K21.9 Gastro-esophageal reflux disease without esophagitis | CPT/HCPCS: 74230 ==

== ENCOUNTER 2025-05-03 08:44 | Outpatient (CLI) | payer MEDICARE, MEDICAID ==
[2025-05-03 09:29] LABS: Estimated GFR - POC 78.0
[2025-05-03] MEDS ORDERED: Iopamidol 370 76% 100 ML VIAL ONE (13:52)
== END 2025-05-03 08:45 | disposition home or self-care (01) ==
LOC: CT 08:44
PROVIDERS: ATTEND Psychiatry & Neurology Neurology
DX: I63.9 Cerebral infarction, unspecified (principal); I65.29 Occlusion and stenosis of unspecified carotid artery
CPT/HCPCS: 36415; 70498; 82565; Q9967